=== PATIENT | male | born 1975 | race Caucasian/White ===

== ENCOUNTER 2019-01-26 21:01 | Inpatient (IN) | payer SELFPAY ==
[2019-01-26] MEDS ORDERED: Piperacillin/Tazobactam 4.5 GM VIAL ONE (21:22)
[2019-01-26 21:24] LABS: Hemoglobin 13.3 g/dL (14.0-18.0); Mean Corpuscular HGB CONC 32.9 g/dL (32.0-36.0); Mean Corpuscular Hemoglobin 28.4 pg (27.0-31.0); Mean Corpuscular Volume 86.2 fL (78.0-98.0); Platelet Count 262 thou/uL (130-400); RBC Distribution Width 12.5 % (11.5-14.5); Red Blood Cell (RBC) Count 4.67 mill/uL (4.70-6.10); White Blood Cell (WBC) Count 11.1 thou/uL (4.8-10.8)
--- NOTE | 2019-01-26 21:31 | RAD ---
AP VIEW CHEST: 01/26/2019 HISTORY: Diabetic. Complaining of septic ulcer, great toe. FINDINGS: AP view chest demonstrates cardiomegaly. Mild pulmonary vascular congestion is seen. No evidence of effusions, pneumonia, or pneumothorax is seen. IMPRESSION: Unremarkable anterior-posterior view chest. POS: [facility]
--- NOTE | 2019-01-26 21:37 | RAD ---
LEFT FOOT THREE VIEWS: HISTORY: Marked first toe swelling. TECHNIQUE: AP, lateral, and oblique views of the left foot are obtained. FINDINGS: There is marked soft tissue swelling surrounding the left great toe. There is gas seen in the soft t issues, adjacent to the interphalangeal joint. This is concerning for a gas-forming organism or an u lcer, which has extended into the joint. The rest of the left foot is unremarkable. IMPRESSION: Marked soft tissue swelling with soft tissue containing gas. This may represent a possible gas-formi ng organism within the left first toe. POS: [facility]
[2019-01-26 21:39] LABS: Band 10 % (5-11); Lymphocytes 4 % (21-51); MDiff Complete? YES; Monocytes 8 % (0-10); Neutrophil 78 % (42-75); Platelet Morphology Comment Appears Adequate; RBC Morphology Normal
[2019-01-26 21:46] LABS: ALT (SGPT) 13 U/L (8-55); AST (SGOT) 10 U/L (5-34); Albumin 3.4 g/dL (3.5-5.0); Alkaline Phosphatase 126 U/L (40-150); Anion Gap 14 mmol/L (10-20); BUN (Urea Nitrogen) 15 mg/dL (8.9-20.6); Bilirubin, Total 1.1 mg/dL (0.2-1.2); Calc. Creatinine Clearance 0 mL/min (70-130); Calcium 9.3 mg/dL (7.8-10.44); Carbon Dioxide 26 mmol/L (22-29); Chloride 90 mmol/L (98-107); Estimated GFR-MDRD 55; Globulin 4.5 g/dL (2.4-3.5); Glucose 407 mg/dL (70-105); Potassium 4.1 mmol/L (3.5-5.1); Protein, Total 7.9 g/dL (6.0-8.3); Sodium 126 mmol/L (136-145)
[2019-01-26] MEDS ORDERED: Ondansetron ODT 4 MG TAB PO PRN (22:17)
[2019-01-26] MEDS ORDERED: Ondansetron PF 4 MG/2 ML Vial IVP PRN (22:17)
[2019-01-26] MEDS ORDERED: VANCOMYCIN IVPB PRN (22:29)
[2019-01-26] MEDS ORDERED: Vancomycin HCl 1 GM in Premix Bag 1 BAG IVPB SCH (22:45)
[2019-01-27] MEDS ORDERED: Dextrose 5% in Water 1,000 ML IV PRN
[2019-01-27] MEDS ORDERED: Dextrose 50% Abboject 50 ML SYRINGE SLOW IVP PRN
--- NOTE | 2019-01-27 01:04 | HP ---
PRIMARY CARE PHYSICIAN: The patient has no PCP. He goes to [facility]. CODE STATUS: Full code. TIME OF EVALUATION: 10:50 p.m. CHIEF COMPLAINT: Diabetic nonhealing foot ulcer. HISTORY OF PRESENT ILLNESS: This is a 43-year-old male patient with past medical history of diabetes, noncompliant with medications and treatment. The patient came to the hospital after having his left great toe very swollen with redness, open nonhealing wound, diabetes ulcer, the symptoms have been present for a month, with no improvement since the patient has not been followed up with any doctor. He reported being admitted to the hospital 1 year ago for the same problem, has been getting worse gradually and today was very painful. He decided to come to the hospital. The symptoms were severe, triggered by diabetes. No alleviating factors. Symptoms are persistent. REVIEW OF SYSTEMS: CONSTITUTIONAL: No fever, chills or generalized weakness. RESPIRATORY: No cough, sputum production, or shortness of breath. CARDIOVASCULAR: No chest pain, or palpitation. GASTROINTESTINAL: No nausea, vomiting, diarrhea, or abdominal pain. ENGINEERING SPECIALIST: No dizziness, headache or feeling lightheaded. The patient has peripheral neuropathy with changes in sensation in bilateral lower extremities. GENITOURINARY: No burning on urination. EXTREMITIES: No leg swelling except for the left greater toe as described in HPI. All other systems were reviewed and negative except for the findings mentioned above. PAST MEDICAL HISTORY: Positive for diabetes, neuropathy, and obesity. PAST SURGICAL HISTORY: No surgical history. PSYCHIATRIC HISTORY: No psych history. SOCIAL HISTORY: No alcohol, no drugs. No smoking history. FAMILY HISTORY: Reviewed and noncontributory to current presentation except for mother having diabetes. KNOWN ALLERGIES: No known drug allergies. REPORTED MEDICATIONS: Metformin and gabapentin. PHYSICAL EXAMINATION: VITAL SIGNS: Blood pressure 120/72 with heart rate 119, respiratory rate was 20, temperature 100.7, pain was 10, and oxygen saturation was 100 on room air. GENERAL APPEARANCE: The patient is alert, oriented, no acute distress. HEENT: Eyes, normal conjunctiva. Moist oral mucosa. Anicteric. No JVD. RESPIRATORY: Bilateral air entry. No rales. No wheezes. Symmetric expansion. CARDIOVASCULAR: Normal rate, regular rhythm. No murmurs. No gallop. No edema. The patient has occasional tachycardic expansion on presentation. ABDOMEN: Soft. Normal bowel sounds. MUSCULOSKELETAL: Baseline range of motion and strength. No tenderness except for the left greater toe that has severe redness, tenderness, toe infection and decreased range of motion due to pain. SKIN: Warm, intact. No pallor. No rash. No redness except the findings described in musculoskeletal. Peripheral pulses are present. Capillary refill seems to be intact. NEUROLOGIC: No evidence of any new focal weakness. Baseline speech. Cranial nerves seems to be intact. The patient has decreased sensation in bilateral lower extremities. PSYCH: The patient is in good mood. No anxiety. Optimal judgment. DIAGNOSTIC DATA: EKG was reviewed. The patient has sinus tachycardia at the rate of 114, TN 162, QRS 98, incomplete RBBB. QT corrected 432. White count was 11.1, hemoglobin 13.3, MCV 86.2, platelet count 262, neutrophils 78, bands was 10, lymphocytes 4. Sedimentation rate was 100. Chemistry, sodium 126, potassium 4.1, chloride 90, carbon dioxide 26, anion gap 14, BUN 15, creatinine 1.4, GFR 55, glucose 407, lactic acid 2, calcium 9.3, total bilirubin 1.1. LFTs were negative. C-reactive protein was 20, albumin 3.4, globulin 4.5, albumin-globulin ratio 0.8. Creatinine at previous visit was 0.8. ASSESSMENT AND PLAN: The patient had been placed in the hospital with following medical problems: 1. Diabetic foot, nonhealing ulcer for a month. The patient is at risk for amputation. The patient presented now septic. We will consult Vascular Surgery, we will start him on antibiotics, wound care. 2. Sepsis. The patient is tachycardic, febrile, source is nonhealing wound. Treatment with broad-spectrum antibiotics, follow cultures. Adjust treatment as per sensitivity. 3. Acute kidney injury. The patient presented with creatinine 1.4, on previous admission was 0.8, is more than 0.3 mg/dL increase from previous values, we will hydrate, we will monitor, it could be secondary to sepsis. 4. Hyponatremia, sodium 126. This is mild, no need for any acute intervention at this point. The patient received fluids. We will monitor and treat accordingly. 5. Uncontrolled diabetes. The patient has glucose of 107. We will start the patient on sliding scale for diabetic diet, the patient will be n.p.o. for a procedure in the morning. 6. Deep venous thrombosis prophylaxis. Job ID: [id number]
[2019-01-27] MEDS: Acetaminophen 325 MG TAB PO PRN ×2 (01:52→09:57)
[2019-01-27] MEDS: HumaLOG 300 UNITS/3 ML VIAL SC PRN ×4 (03:41→20:17)
[2019-01-27] MEDS ORDERED: Piperacillin/Tazobactam 4.5 GM in Sodium Chloride 0.9% 100 ML IVPB SCH (06:59)
[2019-01-27 08:06] LABS: #Basophils 0.1 thou/uL (0.0-0.2); #Eosinphils 0.1 thou/uL (0.0-0.7); #Lymphocytes 1.6 thou/uL (1.20-3.40); #Neutrophils 6.5 thou/uL (1.40-6.50); %Basophils 0.5 % (0.0-1.0); %Eosinophils 1.3 % (0.0-10.0); %Lymphocytes 17.6 % (21.0-51.0); %Monocytes 10.4 % (0.0-10.0); %Neutrophils 70.2 % (42.0-75.0); Hemoglobin 10.4 g/dL (14.0-18.0); Mean Corpuscular HGB CONC 31.6 g/dL (32.0-36.0); Mean Corpuscular Hemoglobin 27.4 pg (27.0-31.0); Mean Corpuscular Volume 86.9 fL (78.0-98.0); Mean Platelet Volume 7.1 fL (7.4-10.4); Platelet Count 212 thou/uL (130-400); RBC Distribution Width 12.4 % (11.5-14.5); Red Blood Cell (RBC) Count 3.79 mill/uL (4.70-6.10); White Blood Cell (WBC) Count 9.3 thou/uL (4.8-10.8)
[2019-01-27 08:25] LABS: Anion Gap 10 mmol/L (10-20); BUN (Urea Nitrogen) 15 mg/dL (8.9-20.6); Calc. Creatinine Clearance 0 mL/min (70-130); Calcium 8.4 mg/dL (7.8-10.44); Carbon Dioxide 26 mmol/L (22-29); Chloride 99 mmol/L (98-107); Estimated GFR-MDRD 65; Glucose 281 mg/dL (70-105); Potassium 3.9 mmol/L (3.5-5.1); Sodium 131 mmol/L (136-145)
[2019-01-27] MEDS: Lisinopril 10 MG TAB PO SCH (09:55)
[2019-01-27] MEDS: Gabapentin 300 MG CAP PO SCH ×2 (09:55→20:13)
[2019-01-27] MEDS: Saccharomyces boulardii 250 MG CAP PO SCH (09:58)
--- NOTE | 2019-01-27 10:30 | PDOC.PN ---
- Subjective Encounter Start Date: 01/27/19 Encounter Start Time: 10:27 Subjective: pain in L foot - Objective Resuscitation Status - Order Detail: 01/26/19 22:17 Resuscitation Status Routine Resuscitation Status: FULL: Full Resuscitation MAR Reviewed: Yes Vital Signs & Weight: Vital Signs (12 hours) Temp Pulse Resp BP Pulse Ox 01/27/19 08:00 98.2 F 73 20 115/71 94 L 01/27/19 06:55 81 18 93/55 L 94 L 01/27/19 03:00 99.9 F H 01/27/19 01:30 100.7 F H 105 H 18 120/69 91 L Weight Weight 9.277 oz I&O: 01/26/19 01/27/19 01/28/19 06:59 06:59 06:59 Intake Total 500 Balance 500 Result Diagrams: 01/27/19 07:33 01/27/19 07:33 Additional Labs: Accuchecks 01/27/19 01/27/19 01/26/19 06:26 03:09 21:12 POC Glucose 276 H 451 H 411 H Phys Exam - Physical Examination Neck: no JVD Respiratory: clear to auscultation bilateral Cardiovascular: RRR, no significant murmur Gastrointestinal: soft, non-tender Musculoskeletal: no edema bandaged L distal foot, great toe about 4x normal size Dx/Plan (1) Ulcer of left foot due to type 2 diabetes mellitus Code(s): E11.621 - TYPE 2 DIABETES MELLITUS WITH FOOT ULCER; L97.529 - NON- PRESSURE CHRONIC ULCER OTH PRT LEFT FOOT W UNSP SEVERITY Status: Acute (2) Osteomyelitis of toe of left foot Code(s): M86.9 - OSTEOMYELITIS, UNSPECIFIED Status: Acute Comment: crp elevated, suspeect osteo- MRI (3) Acute kidney failure Status: Acute Qualifiers: Acute renal failure type: unspecified Qualified Code(s): N17.9 - Acute kidney failure, unspecified (4) Diabetes type 2, uncontrolled Code(s): E11.65 - TYPE 2 DIABETES MELLITUS WITH HYPERGLYCEMIA Status: Acute Qualifiers: Glycemic state: with hyperglycemia Qualified Code(s): E11.65 - Type 2 diabetes mellitus with hyperglycemia - Plan MRI of L foot -: cont antibx -: accu/ss -: hyponatremia * .
[2019-01-27] MEDS ORDERED: Gadobenate Dimeglumine 529 MG/1 ML (20ML VIAL) ONE (11:01)
[2019-01-27] MEDS: Vancomycin HCl 1.75 GM in Sodium Chloride 0.9% 500 ML IVPB SCH (12:04)
--- NOTE | 2019-01-27 13:30 | MRI ---
MRI LEFT FOREFOOT: DATE: 01/27/2019. PROVIDED CLINICAL HISTORY: Left great toe infection. FINDINGS: Comparison is made with radiographs dated 01/26/2019. Evaluation is limited by patient motion. There is conspicuous diminished signal intensity on T1 weighted images and increased signal intensity on fluid-sensitive and postcontrast sequences involving the great toe and distal phalanx. There is a circumscribed area of fluid signal intensity that apparently communicates with the great toe IP jayden nt and apparently extends to the skin surface, which may reflect a sinus tract or abscess. This navin ures about 1.3 cm. There is signal alteration on fluid-sensitive sequences to a minimal degree invol ving the great toe proximal phalanx distally without definite T1 signal alteration or contrast enhanc ement. There is extensive cutaneous thickening and signal alteration within the soft tissues surroun ding the great toe distal phalanx compatible with cellulitis. There is an additional apparent sinus tract that communicates with the plantar-medial aspect of the great toe at the level of the IP joint. Evaluation for additional soft tissue abscess is limited due to patient motion. Regional marrow signal appears otherwise unremarkable. No definite abnormal tenosynovial fluid is se en. No additional joint effusion is evident. Alignment appears anatomic Joint spaces appear preser kristin. Regional intrinsic foot musculature demonstrates diffuse increased signal intensity on fluid-se nsitive sequences, typical for diabetic patients. The dorsal extensor and plantar flexor tendons dem onstrate an intact MRI appearance. IMPRESSION: Findings compatible with osteomyelitis involving the great toe distal phalanx. Great toe interphalan geal joint effusion suggests associated septic arthritis, though there is minimal signal alteration p resent within the great toe proximal phalanx distally. Evidence for sinus tract formation as above. Abscess versus sinus tract at the dorsal aspect of the great toe interphalangeal joint. POS: [facility]
--- NOTE | 2019-01-27 13:51 | PDOC.EVN ---
Event Note - Event Note Event Note: MRI confirms osteomyelitis RL great toe- gen surgery consult
[2019-01-27] MEDS: Piperacillin/Tazobactam 4.5 GM in Sodium Chloride 0.9% 100 ML IVPB SCH ×2 (14:55→20:12)
[2019-01-28] MEDS: Vancomycin HCl 1.75 GM in Sodium Chloride 0.9% 500 ML IVPB SCH ×2 (00:11→11:34)
--- NOTE | 2019-01-28 00:42 | CON ---
DATE OF CONSULTATION: 01/27/2019 CHIEF COMPLAINT: Left great toe pain. HISTORY OF PRESENT ILLNESS: The patient is a 43-year-old diabetic who reports a wound that developed on his left great toe a few months ago because of a variety of reasons including what proved to be a terminal illness involving his mother. He kept procrastinating about seeking medical attention. He presented over the weekend with worsening pain and swelling in that toe. PAST MEDICAL HISTORY: Significant for diabetes complicated by neuropathy. MEDICATIONS: His home medications are metformin 1000 mg b.i.d. and Neurontin 300 mg b.i.d. In the hospital, his metformin has been held and he has been covered with sliding scale insulin. He has been started on Zosyn 4.5 g IV q.6 hours and vancomycin 1.75 g q.12 hours and lisinopril 10 mg a day, he has been added. ALLERGIES: HE DENIES ANY MEDICAL ALLERGIES. SOCIAL HISTORY: He does not smoke. FAMILY HISTORY: Positive for diabetes in his mother. REVIEW OF SYSTEMS: Negative for any chest pain, any shortness of breath, any eye, speech, facial, or extremity symptoms consistent with TIAs. PHYSICAL EXAMINATION: VITAL SIGNS: He is 6 feet 4 inches, weighs 263 pounds. Heart rate is 78, blood pressure is 116/70, temperature is 98.3. T-max on the robles was 100.7, which was his temperature on presentation to the emergency. Room air O2 saturations are 94%. HEENT: He has no xanthelasma. No JVD. No carotid bruits. CHEST: Clear to auscultation. HEART: He has a regular rate and rhythm. ABDOMEN: Soft, nontender. EXTREMITIES: He has bounding dorsalis pedis pulses bilaterally. He has palpable posterior tibial pulses bilaterally. He has obvious asymmetry in the size of the two legs with the left leg being edematous and the great toe massively swollen. There is some modest erythema extending to the mid forefoot. There is no purulent drainage, but there is relatively long linear ulceration on the medial aspect to the plantar aspect of the great toe. Plain films of that foot show soft tissue swelling and some air around the bone at the distal phalanx. MRI shows findings consistent with osteomyelitis of the distal phalanx and fluid in the interphalangeal joint. LABORATORY DATA: Showed white count 11.1 on presentation yesterday evening, it was 9.3 this morning. Hemoglobin this morning was 10.4, hematocrit 32.9, and platelets 212,000. Yesterday evening, his sodium was 126, this morning 131. On presentation, his glucose was 407, BUN 15, creatinine 1.40. This morning, his glucose was 281 , BUN 15, creatinine 1.20 and normal LFTs, normal calcium, protein, and albumin. His chest x-ray shows perhaps mild edema. IMPRESSION AND RECOMMENDATIONS: Osteomyelitis of the distal phalanx of the left great toe in poorly-controlled diabetic with good pedal pulses. We will plan on amputation of that toe. ADDENDUM: As I was placing orders I realized Dr. Whalen has already made arrangements to do his amputation. Job ID: [id number] [facility]
[2019-01-28] MEDS: Piperacillin/Tazobactam 4.5 GM in Sodium Chloride 0.9% 100 ML IVPB SCH ×4 (02:49→20:03)
[2019-01-28] MEDS: HumaLOG 300 UNITS/3 ML VIAL SC PRN ×2 (05:47→12:32)
[2019-01-28] MEDS: Saccharomyces boulardii 250 MG CAP PO SCH (07:56)
[2019-01-28] MEDS: Gabapentin 300 MG CAP PO SCH ×2 (07:56→20:03)
[2019-01-28] MEDS: Lisinopril 10 MG TAB PO SCH (07:56)
[2019-01-28 12:22] LABS: Vancomycin, Trough 14.7 ug/mL
[2019-01-28] MEDS ORDERED: Ondansetron PF 4 MG/2 ML Vial ONE (12:34)
[2019-01-28] MEDS ORDERED: PHENYLEPHRINE-NS 100 MCG/ML 10 ML SYRINGE ONE (12:34)
[2019-01-28] MEDS ORDERED: Lidocaine 1% PF 5 ML VIAL ONE (12:34)
[2019-01-28] MEDS ORDERED: PROPOFOL 200 MG/20 ML VIAL ONE (12:34)
[2019-01-28] MEDS ORDERED: Metoclopramide HCl 10 MG/2 ML VIAL ONE (12:34)
--- NOTE | 2019-01-28 12:41 | PDOC.PN ---
- Subjective Encounter Start Date: 01/28/19 Encounter Start Time: 12:39 Subjective: pain persists in L foot - Objective Resuscitation Status - Order Detail: 01/26/19 22:17 Resuscitation Status Routine Resuscitation Status: FULL: Full Resuscitation MAR Reviewed: Yes Vital Signs & Weight: Vital Signs (12 hours) Temp Pulse Resp BP Pulse Ox 01/28/19 11:49 97.5 F L 76 20 126/76 96 01/28/19 08:00 94 L 01/28/19 07:55 97.9 F 85 18 171/93 H 94 L 01/28/19 04:00 97.7 F 82 18 119/76 92 L Weight Admit Weight 263 lb Weight 259 lb I&O: 01/27/19 01/28/19 01/29/19 06:59 06:59 06:59 Intake Total 500 1200 Balance 500 1200 Result Diagrams: 01/27/19 07:33 01/27/19 07:33 Additional Labs: Accuchecks 01/28/19 01/28/19 01/27/19 11:54 04:51 19:30 POC Glucose 340 H 322 H 420 H 01/27/19 16:28 POC Glucose 419 H Phys Exam - Physical Examination Neck: no JVD Respiratory: clear to auscultation bilateral Cardiovascular: RRR, no significant murmur Gastrointestinal: soft, positive bowel sounds Musculoskeletal: no edema Dx/Plan (1) Ulcer of left foot due to type 2 diabetes mellitus Code(s): E11.621 - TYPE 2 DIABETES MELLITUS WITH FOOT ULCER; L97.529 - NON- PRESSURE CHRONIC ULCER OTH PRT LEFT FOOT W UNSP SEVERITY Status: Acute (2) Osteomyelitis of toe of left foot Code(s): M86.9 - OSTEOMYELITIS, UNSPECIFIED Status: Acute Comment: crp elevated, suspeect osteo- MRI (3) Acute kidney failure Status: Acute Qualifiers: Acute renal failure type: unspecified Qualified Code(s): N17.9 - Acute kidney failure, unspecified (4) Diabetes type 2, uncontrolled Code(s): E11.65 - TYPE 2 DIABETES MELLITUS WITH HYPERGLYCEMIA Status: Acute Qualifiers: Glycemic state: with hyperglycemia Qualified Code(s): E11.65 - Type 2 diabetes mellitus with hyperglycemia - Plan toe amputation today -: cont iv antibx -: cont accu/ss * .
--- NOTE | 2019-01-28 14:36 | CON ---
DATE OF CONSULTATION: REASON FOR CONSULTATION: Diabetic foot infection. HISTORY OF PRESENT ILLNESS: Mr. Patton is a 43-year-old man, who reports a left great toe wound present since around . He states that he was wearing steel-toed boots and carrying a deer feeder out in the [place] and was walking around a lot that day. On his way back home, he got dizzy and actually had to be carried for a while by his friends and that night when he took off his foot, his sock was soaked in blood and he had a sore on the medial toe. He states that he tried a doctor at home. His mother who was also diabetic was admitted to the hospital before and around the holiday and he was not really able to seek medical treatment for himself during that time. Afterwards, he continued to try to manage it on his own, but the redness and swelling and drainage got worse so he came to the hospital. He denies any fevers or chills, but the pain had gotten worse. PAST MEDICAL HISTORY: Diabetes with peripheral neuropathy. PAST SURGICAL HISTORY: None. FAMILY HISTORY: Diabetes in his mother. REVIEW OF SYSTEMS: Ten-system review of systems is negative except per HPI. ALLERGIES: THE PATIENT HAS NO KNOWN DRUG ALLERGIES. MEDICATIONS: Outpatient medications include: 1. Gabapentin. 2. Metformin. Inpatient medications include: 1. Metformin. 2. Sliding scale insulin. 3. Lisinopril. 4. Zosyn. 5. Vancomycin. 6. Florastor. 7. Multiple p.r.n.'s. PHYSICAL EXAMINATION: VITAL SIGNS: The patient had a low-grade fever on admission of 100.7, has been afebrile since then. Heart rate 76, respirations 20, 96% saturated on room air, and blood pressure 126/76. GENERAL: Reveals a healthy-appearing man, in no acute distress. He is not flushed or toxic in appearance. He is not jaundiced or icteric. HEENT: Unremarkable. NECK: Supple without lymphadenopathy or thyroid nodules. HEART: Regular in its rate and rhythm without murmurs, rubs, or gallops. LUNGS: Clear to auscultation bilaterally. ABDOMEN: Soft and nontender to palpation. EXTREMITIES: Warm and well perfused. He has normal dorsalis pedis pulses bilaterally. His left foot is swollen to the level of the ankle and his left great toe is massively swollen. He has a full-thickness ulceration over the medial great toe and I can palpate the joint in the base of the wound. There is pus expressible from this wound and erythema extending up onto the forefoot. The other toes are swollen, but do not have any fluctuance or crepitance. NEUROLOGIC: Peripheral neuropathy. Otherwise, no focal findings. PSYCHIATRIC: Alert, oriented, and appropriate. IMAGING STUDIES: Lower extremity MRI showed osteomyelitis of the great toe distal phalanx and septic arthritis of the interphalangeal joint with sinus tract formation and abscess associated. ASSESSMENT: Osteomyelitis and septic joint confirmed by MRI and bedside exam. I recommended toe amputation and the patient is amenable to this. He understands that the wound will need to be left open to heal by secondary intent due to the active infection. He understands that amputation of other toes may be necessary if the infectious process extends farther than is suspected on MRI and physical examination. Inherent risks of the surgery include, but are not limited to, bleeding, infection, risks of anesthesia, need for other procedures, and failure to heal. He understands and accepts these risks and wishes to proceed. We discussed in detail the expected postoperative course including the need for establishing care with a economic history teacher and getting appropriate footwear for his post amputation state. He understands that due to loss of his great toe, his balance and ambulation will be affected and he will be at high risk for other neurotrophic injuries and that he will need to exercise great caution with regard to his feet in the future and seek immediate attention if he develops any open wounds. He is posted for the OR later today. Job ID: [id number]
[2019-01-28] MEDS ORDERED: Bupivacaine/Epinephrine 0.25% 30 ML VIAL ONE (17:09)
[2019-01-28] MEDS ORDERED: Neomycin-Polymyxin 1 ML AMP ONE ×2 (17:09→17:11)
[2019-01-28] MEDS ORDERED: Fentanyl 100 MCG/2 ML VIAL ONE (17:35)
[2019-01-28] MEDS ORDERED: Piperacillin/Tazobactam 3.375 GM VIAL ONE (18:17)
[2019-01-28] MEDS ORDERED: Meperidine HCl/PF 25 MG/ML VIAL SLOW IVP PRN (18:43)
[2019-01-28] MEDS ORDERED: Promethazine HCl 25 MG/ML VIAL IM PRN (18:43)
[2019-01-28] MEDS ORDERED: Promethazine HCl 25 MG/ML VIAL SLOW IVP PRN (18:43)
[2019-01-28] MEDS ORDERED: PACU-Morphine 4MG/ML VIAL SLOW IVP PRN (18:43)
[2019-01-28] MEDS ORDERED: Sodium Chloride 0.9% 0 ML ONE (19:36)
--- NOTE | 2019-01-28 19:51 | PDOC.OP ---
Operative Note - Operative Note Operative Note: PROCEDURE: Left great toe ray amputation DATE OF PROCEDURE: 01/28/2019 SURGEON: Kaitlin Whalen M.D. PREOPERATIVE DIAGNOSES: Osteomyelitis and septic joint of the left great toe POSTOPERATIVE DIAGNOSIS: Osteomyelitis and septic joint of the left great toe HISTORY: Patient with a several month history of ulceration and drainage and worsening swelling and pain of the left great toe. MRI was positive for septic joint osteomyelitis of the distal phalanx and associated abscess. Recommendation was made to proceed with amputation. PROCEDURE IN DETAIL: After informed consent was obtained and appropriate preoperative and about his continued patient was taken to the operating room where he was placed in the supine position and general anesthesia was administered. He was prepped and draped in standard sterile fashion and a toe block performed. A paddle shape incision was made at the base of the left great toe and dissection carried down to the proximal phalanx which was divided using the rib tami. Dissection was then carried down to the joint and the proximal part of the proximal phalanx resected. The metatarsal head was then divided with rib tami and sent for bone culture. The bone at this level appeared normal. The surrounding tissues appeared healthy and well-perfused although edematous and there is no evidence of purulence or ascending infection. The wound was debrided and all sharp edges removed using the rongeur. The flexor and extensor tendons were pulled up into the wound cut and allowed to retract into the soft tissue. The wound was copiously irrigated and hemostasis was verified. The proximal portion of the skin incision was reapproximated with 3-0 nylon sutures to reduce the size of the wound and the wound was packed with iodoform gauze and the foot wrapped with gauze and an Dat wrap. The patient was extubated and taken to recovery in good condition. Estimated blood loss was minimal. There were no complications. Specimen is left great toe with metatarsal head sent for bone cultures. Swab of the left great toe abscess was also sent for Gram stain and culture.
[2019-01-28] MEDS ORDERED: Morphine 4 MG/ML VIAL SLOW IVP PRN (20:05)
[2019-01-29] MEDS: Piperacillin/Tazobactam 4.5 GM in Sodium Chloride 0.9% 100 ML IVPB SCH ×4 (01:12→20:55)
[2019-01-29] MEDS: Vancomycin HCl 1.75 GM in Sodium Chloride 0.9% 500 ML IVPB SCH ×2 (01:12→12:29)
[2019-01-29] MEDS: HYDROcodone/Acetaminophen 5/325 mg Tablet PO PRN ×4 (02:07→20:54)
[2019-01-29] MEDS: HumaLOG 300 UNITS/3 ML VIAL SC PRN ×3 (04:58→16:47)
[2019-01-29] MEDS: Saccharomyces boulardii 250 MG CAP PO SCH (08:49)
[2019-01-29] MEDS: Gabapentin 300 MG CAP PO SCH ×2 (08:49→20:55)
[2019-01-29] MEDS: Lisinopril 10 MG TAB PO SCH (08:49)
--- NOTE | 2019-01-29 11:51 | PDOC.GSPN ---
Surgery Progress Note: Subj - Subjective Narrative: Wound was clean but there was oozing from near the digital artery and along the lateral edge of the wound, and according to the wound care team the dressing saturated overnight. The nurses report that he was told not to walk on his fresh wound that he was noncompliant with this obstruction. The wound care team tried to control this with direct pressure and Surgicel but he continued to ooze so I inserted a couple [id number] Vicryl sutures to achieve hemostasis. A VAC dressing was then placed. Continue with the VAC and antibiotics. I will ask physical therapy to see him. Elder ideally he would be nonweightbearing on his foot that he needs to heel touch for safety that is acceptable. Surgery Progress Note: Obj - Vital signs Vital signs: Vital Signs - Most Recent Temp Pulse Resp BP Pulse Ox 98.1 F 73 18 149/86 H 93 L 01/29/19 11:15 01/29/19 11:15 01/29/19 11:15 01/29/19 11:15 01/29/19 11:15 Surgery Progress Note: Results - Labs Result Diagrams: 01/27/19 07:33 01/27/19 07:33 Lab results: Laboratory Results - last 24 hr 01/28/19 01/29/19 15:24 04:40 POC Glucose 194 H 393 H
--- NOTE | 2019-01-29 12:18 | PDOC.PN ---
- Subjective Encounter Start Date: 01/29/19 Encounter Start Time: 12:17 Subjective: min pain in foot - Objective Resuscitation Status - Order Detail: 01/26/19 22:17 Resuscitation Status Routine Resuscitation Status: FULL: Full Resuscitation MAR Reviewed: Yes Vital Signs & Weight: Vital Signs (12 hours) Temp Pulse Resp BP BP BP Pulse Ox 01/29/19 11:15 98.1 F 73 18 149/86 H 93 L 01/29/19 08:50 96 01/29/19 08:49 157/91 H 01/29/19 07:04 98 F 75 19 157/91 H 96 01/29/19 04:00 97.7 F 67 18 152/94 H 94 L Weight Admit Weight 263 lb Weight 259 lb 12.8 oz I&O: 01/28/19 01/29/19 01/30/19 06:59 06:59 06:59 Intake Total 1200 Output Total 450 Balance 1200 -450 Result Diagrams: 01/27/19 07:33 01/27/19 07:33 Additional Labs: Accuchecks 01/29/19 01/29/19 01/28/19 11:13 04:40 20:27 POC Glucose 422 H 393 H 174 H 01/28/19 01/28/19 01/28/19 19:11 15:24 11:54 POC Glucose 272 H 194 H 340 H Phys Exam - Physical Examination Neck: no JVD Respiratory: clear to auscultation bilateral Cardiovascular: RRR, no significant murmur Gastrointestinal: soft, positive bowel sounds Musculoskeletal: no edema L foot bandaged Dx/Plan (1) Ulcer of left foot due to type 2 diabetes mellitus Code(s): E11.621 - TYPE 2 DIABETES MELLITUS WITH FOOT ULCER; L97.529 - NON- PRESSURE CHRONIC ULCER OTH PRT LEFT FOOT W UNSP SEVERITY Status: Acute (2) Osteomyelitis of toe of left foot Code(s): M86.9 - OSTEOMYELITIS, UNSPECIFIED Status: Acute Comment: crp elevated, suspeect osteo- MRI (3) Acute kidney failure Status: Acute Qualifiers: Acute renal failure type: unspecified Qualified Code(s): N17.9 - Acute kidney failure, unspecified (4) Diabetes type 2, uncontrolled Code(s): E11.65 - TYPE 2 DIABETES MELLITUS WITH HYPERGLYCEMIA Status: Acute Qualifiers: Glycemic state: with hyperglycemia Qualified Code(s): E11.65 - Type 2 diabetes mellitus with hyperglycemia - Plan post amputation, C&S wound pending, cont current antibx -: cont accu/ss- start metformin -: wound vac * .
[2019-01-29] MEDS: metFORMIN 500 MG TAB PO SCH (16:46)
[2019-01-30] MEDS: Piperacillin/Tazobactam 4.5 GM in Sodium Chloride 0.9% 100 ML IVPB SCH ×2 (01:25→08:43)
[2019-01-30] MEDS: Vancomycin HCl 1.75 GM in Sodium Chloride 0.9% 500 ML IVPB SCH (01:25)
[2019-01-30] MEDS: HYDROcodone/Acetaminophen 5/325 mg Tablet PO PRN ×3 (03:22→18:07)
[2019-01-30] MEDS: HumaLOG 300 UNITS/3 ML VIAL SC PRN ×4 (05:41→19:52)
--- NOTE | 2019-01-30 08:36 | PDOC.PN ---
- Subjective Encounter Start Date: 01/30/19 Encounter Start Time: 08:31 Subjective: no fever, etc - Objective Resuscitation Status - Order Detail: 01/26/19 22:17 Resuscitation Status Routine Resuscitation Status: FULL: Full Resuscitation MAR Reviewed: Yes Vital Signs & Weight: Vital Signs (12 hours) Temp Pulse Resp BP Pulse Ox 01/30/19 07:02 97.8 F 78 17 162/82 H 91 L Weight Admit Weight 263 lb Weight 256 lb I&O: 01/29/19 01/30/19 01/31/19 06:59 06:59 06:59 Intake Total 1260 Output Total 1850 Balance -590 Result Diagrams: 01/27/19 07:33 01/27/19 07:33 Additional Labs: Accuchecks 01/30/19 01/29/19 01/29/19 05:11 19:52 15:59 POC Glucose 268 H 173 H 336 H 01/29/19 11:13 POC Glucose 422 H Phys Exam - Physical Examination Neck: no JVD Respiratory: clear to auscultation bilateral Cardiovascular: RRR, no significant murmur Gastrointestinal: soft, positive bowel sounds Musculoskeletal: no edema left foot- wound vac Dx/Plan (1) Ulcer of left foot due to type 2 diabetes mellitus Code(s): E11.621 - TYPE 2 DIABETES MELLITUS WITH FOOT ULCER; L97.529 - NON- PRESSURE CHRONIC ULCER OTH PRT LEFT FOOT W UNSP SEVERITY Status: Acute (2) Osteomyelitis of toe of left foot Code(s): M86.9 - OSTEOMYELITIS, UNSPECIFIED Status: Acute Comment: crp elevated, suspeect osteo- MRI (3) Acute kidney failure Status: Resolved Qualifiers: Acute renal failure type: unspecified Qualified Code(s): N17.9 - Acute kidney failure, unspecified (4) Diabetes type 2, uncontrolled Code(s): E11.65 - TYPE 2 DIABETES MELLITUS WITH HYPERGLYCEMIA Status: Acute Qualifiers: Glycemic state: with hyperglycemia Qualified Code(s): E11.65 - Type 2 diabetes mellitus with hyperglycemia (5) Hypertension Code(s): I10 - ESSENTIAL (PRIMARY) HYPERTENSION Status: Acute - Plan add amlodipine for HTN -: ADD glipizide for hyperglycemia -: deescalate antibx to rocephin -: wound care per gen surg * .
[2019-01-30] MEDS: Lisinopril 10 MG TAB PO SCH (08:40)
[2019-01-30] MEDS: metFORMIN 500 MG TAB PO SCH ×2 (08:40→16:54)
[2019-01-30] MEDS: Gabapentin 300 MG CAP PO SCH ×2 (08:41→19:52)
[2019-01-30] MEDS: Saccharomyces boulardii 250 MG CAP PO SCH (08:41)
[2019-01-30] MEDS ORDERED: Amlodipine 5 MG TAB PO SCH ×2 (09:00→10:00)
[2019-01-30] MEDS: cefTRIAXone\\ROCEPHIN 2 GM in Sodium Chloride 0.9% 100 ML IVPB SCH (10:50)
[2019-01-30 11:41] LABS: Vancomycin, Trough 20.8 ug/mL
[2019-01-30 15:03] VITALS: BMI 31.1
[2019-01-31] MEDS: Saccharomyces boulardii 250 MG CAP PO SCH (08:40)
[2019-01-31] MEDS: HYDROcodone/Acetaminophen 5/325 mg Tablet PO PRN ×2 (08:40→15:56)
[2019-01-31] MEDS: Amlodipine 5 MG TAB PO SCH (08:40)
[2019-01-31] MEDS: metFORMIN 500 MG TAB PO SCH ×2 (08:41→15:56)
[2019-01-31] MEDS: Gabapentin 300 MG CAP PO SCH ×2 (08:41→20:26)
[2019-01-31] MEDS: Lisinopril 10 MG TAB PO SCH (08:42)
[2019-01-31] MEDS: cefTRIAXone\\ROCEPHIN 2 GM in Sodium Chloride 0.9% 100 ML IVPB SCH (08:42)
[2019-01-31] MEDS: HumaLOG 300 UNITS/3 ML VIAL SC PRN ×2 (11:52→20:26)
--- NOTE | 2019-01-31 13:48 | CON ---
DATE OF CONSULTATION: 01/31/2019 REASON FOR CONSULTATION: Foot osteomyelitis with amputation of the first toe. HISTORY OF PRESENT ILLNESS: A 43-year-old patient admitted a few days ago with inflammatory process of the left first toe. The patient had noticed an ulcer a few months ago, but was not able to have it looked at and eventually he had to come to the hospital, when Dr. Whalen performed amputation of the first ray. It seems like the margin of amputations cleared. Pathology is pending at this time. Denies headaches. No visual symptoms, sore throat, odynophagia, or dysphagia. No cough or sputum production. No chest pain. No back pain. No abdominal pain or diarrhea. No genitourinary symptoms. No other joint symptoms. PAST MEDICAL HISTORY: 1. Type 2 diabetes. 2. Neuropathy. 3. Obesity. PAST SURGICAL HISTORY: Negative other than until this current one. SOCIAL HISTORY: Never smoker. No alcoholic beverage use. FAMILY HISTORY: Noncontributory. ALLERGIES: NONE. CURRENT MEDICATIONS: 1. Tylenol. 2. [place]. 3. Norvasc. 4. Ceftriaxone. 5. Dextrose. 6. Gabapentin. 7. Insulin. 8. Morphine. PHYSICAL EXAMINATION: VITAL SIGNS: Temperature is normal, BP 170/90, pulse 76, respirations 18, and O2 saturation 91% to 92%. SKIN: Shows the previously noted 1st toe inflammatory changes with marked swelling and then the subsequent findings after the amputation at the MPJ level 1st ray, the patient has a peripheral IV access and is urinating in the toilet. LYMPH NODES: No lymphadenopathy. HEENT: Ocular movements conjugate. Nasal passages patent. Oral cavity normal. NECK: Supple. No jugular vein distention. LUNGS: Symmetric with clear breath sounds. HEART: S1 and S2. Regular rate. No S3 or S4. ABDOMEN: Soft, not distended or tender. No ascites. No bladder distention. EXTREMITIES: No other joint inflammatory process. Pulses are 2+ in popliteal and dorsalis pedis. Cap refill is normal. NEUROLOGIC: Cognitive function appears to be normal. LABORATORY DATA: White cell count is 11 down to 9.3, hemoglobin down to 10.4, platelets stable at 212, and 78% neutrophils. Chemistry with a creatinine of 1.2, GFR 65, and sodium 131. Bilirubin 1.1, AST 10, and ALT 13. CRP 20.14. Albumin 3.4 and globulin 4.5. Vancomycin trough 20. Microbiology with Staph aureus, pending susceptibilities. Anaerobic cultures are still preliminary. The Gram-stain shows a mixed ren. The patient had an MRI done on admission, which demonstrates osteomyelitis of great toe distal phalanx with interphalangeal joint effusion. ASSESSMENT: 1. Type 2 diabetes. 2. Neuropathy with chronic inflammatory process, left first toe, which resulted in first ray amputation. PLAN: We will wait for the pathology report, assuming good margin, and then will hopefully transition to oral antimicrobial therapy. We will need anaerobic coverage as well. If those lesions typically are polymicrobial, then we will see what the combination will be with Flagyl or some other type of anaerobic coverage. Duration of therapy will probably be anywhere from 3 to 4 weeks. He is at risk for recrudescence of the process and further amputation depending on his ability of care for self. He does have good vascular supply, though which is a good prognostic indicator for healing. Job ID: [id number]
--- NOTE | 2019-01-31 14:20 | PDOC.GSPN ---
Surgery Progress Note: Subj - Subjective Narrative: Wound examined today with wound care team. It is clean and granulating. Continue VAC and antibiotics. Cultures show staph but final sensitivities pending. I can see him either in the wound care clinic or in my clinic after his discharge. Please contact the surgeon corporate communications manager if any issues arise. I will be gone next week. Surgery Progress Note: Obj - Vital signs Vital signs: Vital Signs - Most Recent Temp Pulse Resp BP Pulse Ox 97.9 F 76 18 171/90 H 91 L 01/31/19 11:05 01/31/19 11:05 01/31/19 11:05 01/31/19 11:05 01/31/19 11:05 Surgery Progress Note: Results - Labs Result Diagrams: 01/27/19 07:33 01/27/19 07:33 Lab results: Laboratory Results - last 24 hr 01/31/19 01/31/19 05:02 11:08 POC Glucose 202 H 274 H
--- NOTE | 2019-01-31 19:16 | PDOC.PN ---
- Subjective Encounter Start Date: 01/31/19 Encounter Start Time: 19:14 Subjective: feels well. no new complaints.no ON events - Objective Resuscitation Status - Order Detail: 01/26/19 22:17 Resuscitation Status Routine Resuscitation Status: FULL: Full Resuscitation MAR Reviewed: Yes Vital Signs & Weight: Vital Signs (12 hours) Temp Pulse Pulse Resp BP BP BP 01/31/19 16:12 97.7 F 75 18 171/80 H 01/31/19 15:51 76 170/89 H 01/31/19 11:05 97.9 F 76 18 171/90 H 01/31/19 08:42 178/94 H 01/31/19 08:40 84 01/31/19 08:00 01/31/19 07:38 97.8 F 81 16 178/94 H Pulse Ox 01/31/19 16:12 94 L 01/31/19 15:51 01/31/19 11:05 91 L 01/31/19 08:42 01/31/19 08:40 01/31/19 08:00 93 L 01/31/19 07:38 91 L Weight Admit Weight 263 lb Weight 256 lb I&O: 01/30/19 01/31/19 02/01/19 06:59 06:59 06:59 Intake Total 1260 2020 1000 Output Total 1850 825 Balance -590 1195 1000 Result Diagrams: 01/27/19 07:33 01/27/19 07:33 Additional Labs: Accuchecks 01/31/19 01/31/19 01/31/19 16:15 11:08 05:02 POC Glucose 196 H 274 H 202 H 01/30/19 19:37 POC Glucose 295 H Microbiology 01/28/19 18:57 Toe - Abscess Bacterial Culture - Preliminary Staphylococcus aureus 01/28/19 18:32 Bone Bacterial Culture - Preliminary 01/28/19 18:32 Bone Anaerobic Culture - Preliminary 01/26/19 21:15 Venous blood - Right Arm Blood Culture - Preliminary NO GROWTH AT 48 HOURS 01/26/19 21:14 Venous blood - Left Arm Blood Culture - Preliminary NO GROWTH AT 48 HOURS Phys Exam - Physical Examination Constitutional: NAD HEENT: PERRLA, moist MMs, sclera anicteric, oral pharynx no lesions, 2+ tonsils Neck: no nodes, no JVD, supple, full ROM Respiratory: no wheezing, no rales, no rhonchi, clear to auscultation bilateral Cardiovascular: RRR, no significant murmur, no rub Gastrointestinal: soft, non-tender, no distention, positive bowel sounds Musculoskeletal: no edema, pulses present wound vac in place Neurological: non-focal, normal sensation, moves all 4 limbs Psychiatric: normal affect, A&O x 3 Skin: no rash, normal turgor, cap refill <2 seconds Dx/Plan (1) Osteomyelitis of toe of left foot Code(s): M86.9 - OSTEOMYELITIS, UNSPECIFIED Status: Acute Comment: crp elevated, suspeect osteo- MRI.s/p Amputation and Wound vac (2) Ulcer of left foot due to type 2 diabetes mellitus Code(s): E11.621 - TYPE 2 DIABETES MELLITUS WITH FOOT ULCER; L97.529 - NON- PRESSURE CHRONIC ULCER OTH PRT LEFT FOOT W UNSP SEVERITY Status: Acute (3) Hypertension Code(s): I10 - ESSENTIAL (PRIMARY) HYPERTENSION Status: Acute (4) Diabetes type 2, uncontrolled Code(s): E11.65 - TYPE 2 DIABETES MELLITUS WITH HYPERGLYCEMIA Status: Acute Qualifiers: Glycemic state: with hyperglycemia Qualified Code(s): E11.65 - Type 2 diabetes mellitus with hyperglycemia (5) Obesity (BMI 30.0-34.9) Code(s): E66.9 - OBESITY, UNSPECIFIED Status: Chronic - Plan DVT proph w/SCDs consult ID for DC ABx -: path pending -: HD stable.meds as below -: wound care * . Review of Systems - Review of Systems Constitutional: negative: fever, chills, sweats, weakness, malaise, other ENT: negative: Ear Pain, Ear Discharge, Nose Pain, Nose Discharge, Nose Congestion, Mouth Pain, Mouth Swelling, Throat Pain, Throat Swelling, Other Respiratory: negative: Cough, Dry, Shortness of Breath, Hemoptysis, SOB with Excertion, Pleuritic Pain, Sputum, Wheezing Cardiovascular: negative: chest pain, palpitations, orthopnea, paroxysmal nocturnal dyspnea, edema, light headedness, other Gastrointestinal: negative: Nausea, Vomiting, Abdominal Pain, Diarrhea, Constipation, Melena, Hematochezia, Other Genitourinary: negative: Dysuria, Frequency, Incontinence, Hematuria, Retention , Other Musculoskeletal: negative: Neck Pain, Shoulder Pain, Arm Pain, Back Pain, Hand Pain, Leg Pain, Foot Pain, Other Skin: negative: Rash, Lesions, Thom, Bruising, Other Neurological: negative: Weakness, Numbness, Incoordination, Change in Speech, Confusion, Seizures, Other - Medications/Allergies Allergies/Adverse Reactions: Allergies Allergy/AdvReac Type Severity Reaction Status Date / Time No Known Drug Allergies Allergy Verified 07/16/17 03:25 Medications: Current Medications Acetaminophen (Tylenol) 650 mg PO Q4H PRN PRN Reason: Headache/Fever/Mild Pain (1-3) Last Admin: 01/27/19 09:57 Dose: 650 mg Hydrocodone Bitart/Acetaminophen ([place] 5/325) 1 tab PO Q4H PRN PRN Reason: Pain 4-6 Last Admin: 01/31/19 15:56 Dose: 1 tab Amlodipine Besylate (Norvasc) 5 mg PO DAILY COUNTS INCLUDE 234 BEDS AT THE [facility] Last Admin: 01/31/19 08:40 Dose: 5 mg Dextrose/Water (Dextrose 50%) 25 gm SLOW IVP PRN PRN PRN Reason: Hypoglycemia Gabapentin (Neurontin) 300 mg PO BID COUNTS INCLUDE 234 BEDS AT THE [facility] Last Admin: 01/31/19 08:41 Dose: 300 mg Glipizide (Glucotrol Xl) 5 mg PO QAM-[facility] Last Admin: 01/31/19 08:42 Dose: 5 mg Glucagon (Glucagon) 1 mg IM PRN PRN PRN Reason: Hypoglycemia Dextrose/Water (D5w) 1,000 mls @ 0 mls/hr IV .Q0M PRN PRN Reason: Hypoglycemia Ceftriaxone Sodium 2 gm/ (Sodium Chloride) 100 mls @ 200 mls/hr IVPB 1000 COUNTS INCLUDE 234 BEDS AT THE [facility] Last Admin: 01/31/19 08:42 Dose: 100 mls Insulin Human Lispro (Humalog) 0 units SC .AGGRESSIVE SLIDING PRN; Protocol PRN Reason: AGGRESSIVE SLIDING SCALE Last Admin: 01/31/19 11:52 Dose: 9 unit Lisinopril (Zestril) 10 mg PO DAILY COUNTS INCLUDE 234 BEDS AT THE [facility] Last Admin: 01/31/19 08:42 Dose: 10 mg Metformin HCl (Glucophage) 1,000 mg PO BID-[facility] Last Admin: 01/31/19 15:56 Dose: 1,000 mg Morphine Sulfate (Morphine) 2 mg SLOW IVP Q2H PRN PRN Reason: PAIN IF UNABLE TO TAKE PO Ondansetron HCl (Zofran Odt) 4 mg PO Q6H PRN PRN Reason: Nausea/Vomiting Ondansetron HCl (Zofran) 4 mg IVP Q6H PRN PRN Reason: Nausea/Vomiting Saccharomyces Annai (Florastor) 250 mg PO DAILY COUNTS INCLUDE 234 BEDS AT THE [facility] Last Admin: 01/31/19 08:40 Dose: 250 mg
[2019-02-01] MEDS: HumaLOG 300 UNITS/3 ML VIAL SC PRN ×3 (05:43→20:08)
[2019-02-01] MEDS: cefTRIAXone\\ROCEPHIN 2 GM in Sodium Chloride 0.9% 100 ML IVPB SCH (09:14)
[2019-02-01] MEDS: metFORMIN 500 MG TAB PO SCH ×2 (09:15→17:49)
[2019-02-01] MEDS: Amlodipine 5 MG TAB PO SCH (09:15)
[2019-02-01] MEDS: Gabapentin 300 MG CAP PO SCH ×2 (09:15→20:08)
[2019-02-01] MEDS: Saccharomyces boulardii 250 MG CAP PO SCH (09:15)
[2019-02-01] MEDS: Lisinopril 10 MG TAB PO SCH (09:16)
[2019-02-01] MEDS: HYDROcodone/Acetaminophen 5/325 mg Tablet PO PRN ×2 (11:25→20:11)
--- NOTE | 2019-02-01 15:58 | PDOC.PN ---
- Subjective Encounter Start Date: 02/01/19 Encounter Start Time: 15:56 Subjective: Seen and examined feeling better - Objective Resuscitation Status - Order Detail: 01/26/19 22:17 Resuscitation Status Routine Resuscitation Status: FULL: Full Resuscitation Vital Signs & Weight: Vital Signs (12 hours) Temp Pulse Resp BP BP Pulse Ox 02/01/19 12:00 97.6 F 78 18 172/91 H 96 02/01/19 09:16 178/94 H 02/01/19 09:15 75 02/01/19 08:00 98.1 F 75 18 189/83 H 94 L Weight Admit Weight 263 lb Weight 256 lb I&O: 01/31/19 02/01/19 02/02/19 06:59 06:59 07:59 Intake Total 2020 1000 Output Total 825 Balance 1195 1000 Result Diagrams: 01/27/19 07:33 01/27/19 07:33 Additional Labs: Accuchecks 02/01/19 02/01/19 01/31/19 11:46 04:39 19:28 POC Glucose 163 H 346 H 182 H 01/31/19 16:15 POC Glucose 196 H Phys Exam - Physical Examination Constitutional: NAD HEENT: PERRLA, moist MMs, sclera anicteric, TM's clear Neck: no nodes, no JVD, supple, full ROM Respiratory: no wheezing, no rales, no rhonchi, clear to auscultation bilateral Cardiovascular: RRR, no significant murmur, no rub Gastrointestinal: soft, non-tender, no distention, positive bowel sounds Dx/Plan (1) Hypertension Code(s): I10 - ESSENTIAL (PRIMARY) HYPERTENSION Status: Acute (2) Osteomyelitis of toe of left foot Code(s): M86.9 - OSTEOMYELITIS, UNSPECIFIED Status: Acute Comment: crp elevated, suspeect osteo- MRI.s/p Amputation and Wound vac (3) Ulcer of left foot due to type 2 diabetes mellitus Code(s): E11.621 - TYPE 2 DIABETES MELLITUS WITH FOOT ULCER; L97.529 - NON- PRESSURE CHRONIC ULCER OTH PRT LEFT FOOT W UNSP SEVERITY Status: Acute (4) Abdominal wall cellulitis Code(s): L03.311 - CELLULITIS OF ABDOMINAL WALL Status: Acute (5) Diabetes type 2, uncontrolled Code(s): E11.65 - TYPE 2 DIABETES MELLITUS WITH HYPERGLYCEMIA Status: Acute Qualifiers: Glycemic state: with hyperglycemia Qualified Code(s): E11.65 - Type 2 diabetes mellitus with hyperglycemia (6) Diabetic foot infection Code(s): E11.69 - TYPE 2 DIABETES MELLITUS WITH OTHER SPECIFIED COMPLICATION; L08.9 - LOCAL INFECTION OF THE SKIN AND SUBCUTANEOUS TISSUE, UNSP Status: Acute (7) Hyponatremia Code(s): E87.1 - HYPO-OSMOLALITY AND HYPONATREMIA Status: Acute (8) Obesity (BMI 30.0-34.9) Code(s): E66.9 - OBESITY, UNSPECIFIED Status: Chronic - Plan continue antibiotics, PT/OT, social welfare clerk Based on senstivity will reccommend clindamycin/flagyl if ok with iD -: will D/c ceftriaxone -: D/c when ok with ID with final plan for outpatient antibiotics regimen * .
[2019-02-01] MEDS: Rifampin 300 MG CAP PO SCH (20:08)
[2019-02-01] MEDS: Sulfameth/Trimethoprim DS 800-160mg TAB PO SCH (20:08)
[2019-02-01] MEDS ORDERED: Clindamycin 150 MG CAP PO SCH (21:00)
[2019-02-01] MEDS ORDERED: metroNIDAZOLE 500 MG TAB PO SCH (21:00)
[2019-02-02] MEDS: HYDROcodone/Acetaminophen 5/325 mg Tablet PO PRN ×3 (05:31→19:21)
[2019-02-02] MEDS: Gabapentin 300 MG CAP PO SCH ×2 (09:30→19:21)
[2019-02-02] MEDS: Sulfameth/Trimethoprim DS 800-160mg TAB PO SCH ×2 (09:30→19:20)
[2019-02-02] MEDS: Lisinopril 10 MG TAB PO SCH (09:30)
[2019-02-02] MEDS: Rifampin 300 MG CAP PO SCH ×2 (09:30→19:21)
[2019-02-02] MEDS: Saccharomyces boulardii 250 MG CAP PO SCH (09:30)
[2019-02-02] MEDS: metFORMIN 500 MG TAB PO SCH ×2 (09:31→17:13)
[2019-02-02] MEDS: Amlodipine 5 MG TAB PO SCH (09:31)
--- NOTE | 2019-02-02 14:53 | PDOC.PN ---
- Subjective Encounter Start Date: 02/02/19 Encounter Start Time: 14:51 Patient seen and examined. No new complaints. No overnight events. feeling better. - Objective Resuscitation Status - Order Detail: 01/26/19 22:17 Resuscitation Status Routine Resuscitation Status: FULL: Full Resuscitation MAR Reviewed: Yes Vital Signs & Weight: Vital Signs (12 hours) Temp Pulse Resp BP BP Pulse Ox 02/02/19 11:00 98.1 F 81 18 176/93 H 94 L 02/02/19 09:31 86 02/02/19 09:30 178/94 H 02/02/19 08:00 97.9 F 86 20 162/81 H 95 Weight Admit Weight 263 lb Weight 256 lb I&O: 02/01/19 02/02/19 02/03/19 05:59 06:59 06:59 Intake Total Balance Result Diagrams: 01/27/19 07:33 01/27/19 07:33 Additional Labs: Accuchecks 02/02/19 02/02/19 02/01/19 11:36 04:40 19:13 POC Glucose 190 H 199 H 379 H 02/01/19 16:54 POC Glucose 249 H Phys Exam - Physical Examination Constitutional: NAD HEENT: sclera anicteric Neck: supple Respiratory: no wheezing, no rales Gastrointestinal: soft Musculoskeletal: no edema Neurological: moves all 4 limbs Psychiatric: normal affect, A&O x 3 Skin: no rash Dx/Plan (1) Osteomyelitis of toe of left foot Code(s): M86.9 - OSTEOMYELITIS, UNSPECIFIED Status: Acute Comment: crp elevated, suspeect osteo- MRI.s/p Amputation and Wound vac (2) Ulcer of left foot due to type 2 diabetes mellitus Code(s): E11.621 - TYPE 2 DIABETES MELLITUS WITH FOOT ULCER; L97.529 - NON- PRESSURE CHRONIC ULCER OTH PRT LEFT FOOT W UNSP SEVERITY Status: Acute (3) Diabetes type 2, uncontrolled Code(s): E11.65 - TYPE 2 DIABETES MELLITUS WITH HYPERGLYCEMIA Status: Acute Qualifiers: Glycemic state: with hyperglycemia Qualified Code(s): E11.65 - Type 2 diabetes mellitus with hyperglycemia (4) Obesity (BMI 30.0-34.9) Code(s): E66.9 - OBESITY, UNSPECIFIED Status: Chronic - Plan cont current plan of care, continue antibiotics * . f/u with ID for recs. AM labs.
[2019-02-03] MEDS: Gabapentin 300 MG CAP PO SCH ×2 (09:04→19:52)
[2019-02-03] MEDS: Lisinopril 10 MG TAB PO SCH (09:04)
[2019-02-03] MEDS: Saccharomyces boulardii 250 MG CAP PO SCH (09:04)
[2019-02-03] MEDS: Sulfameth/Trimethoprim DS 800-160mg TAB PO SCH ×2 (09:04→19:52)
[2019-02-03] MEDS: metFORMIN 500 MG TAB PO SCH ×2 (09:04→16:34)
[2019-02-03] MEDS: Amlodipine 5 MG TAB PO SCH (09:04)
[2019-02-03] MEDS: Rifampin 300 MG CAP PO SCH ×2 (09:05→19:52)
[2019-02-03 09:08] LABS: #Eosinphils 0.3 thou/uL (0.0-0.7); #Lymphocytes 1.6 thou/uL (1.20-3.40); #Monocytes 0.5 thou/uL (0.11-0.59); #Neutrophils 6.8 thou/uL (1.40-6.50); %Basophils 0.5 % (0.0-1.0); %Eosinophils 3.5 % (0.0-10.0); %Lymphocytes 17.4 % (21.0-51.0); %Monocytes 5.3 % (0.0-10.0); %Neutrophils 73.3 % (42.0-75.0); Hemoglobin 12.5 g/dL (14.0-18.0); Mean Corpuscular HGB CONC 32.3 g/dL (32.0-36.0); Mean Corpuscular Hemoglobin 28.1 pg (27.0-31.0); Mean Platelet Volume 6.1 fL (7.4-10.4); Platelet Count 411 thou/uL (130-400); RBC Distribution Width 13.4 % (11.5-14.5); Red Blood Cell (RBC) Count 4.45 mill/uL (4.70-6.10); White Blood Cell (WBC) Count 9.3 thou/uL (4.8-10.8)
[2019-02-03] MEDS: HYDROcodone/Acetaminophen 5/325 mg Tablet PO PRN ×2 (09:08→19:52)
[2019-02-03 09:42] LABS: Anion Gap 12 mmol/L (10-20); BUN (Urea Nitrogen) 12 mg/dL (8.9-20.6); Calc. Creatinine Clearance 167 mL/min (70-130); Calcium 9.5 mg/dL (7.8-10.44); Carbon Dioxide 27 mmol/L (22-29); Chloride 102 mmol/L (98-107); Estimated GFR-MDRD 89; Glucose 126 mg/dL (70-105); Potassium 4.2 mmol/L (3.5-5.1); Sodium 137 mmol/L (136-145)
--- NOTE | 2019-02-03 16:48 | PDOC.PN ---
- Subjective Encounter Start Date: 02/03/19 Encounter Start Time: 04:30 Subjective: PATIENT RESTING WELL AND AFEBRILE. - Objective Resuscitation Status - Order Detail: 01/26/19 22:17 Resuscitation Status Routine Resuscitation Status: FULL: Full Resuscitation MAR Reviewed: Yes Vital Signs & Weight: Vital Signs (12 hours) Temp Pulse Resp BP BP Pulse Ox 02/03/19 15:58 98.4 F 80 19 151/82 H 94 L 02/03/19 11:13 98.4 F 80 17 123/74 94 L 02/03/19 09:04 80 148/79 H 02/03/19 07:02 97.7 F 80 19 148/79 H 94 L Weight Admit Weight 263 lb Weight 256 lb I&O: 02/02/19 02/03/19 02/04/19 06:59 06:59 06:59 Intake Total 800 Output Total 5 500 Balance 795 -500 Result Diagrams: 02/03/19 08:20 02/03/19 08:20 Additional Labs: Accuchecks 02/03/19 02/02/19 05:44 20:09 POC Glucose 117 H 169 H Phys Exam - Physical Examination HEENT: moist MMs Neck: no JVD Respiratory: no wheezing, no rales, no rhonchi Cardiovascular: no significant murmur, no rub Gastrointestinal: soft, non-tender, no distention, positive bowel sounds Musculoskeletal: pulses present Neurological: non-focal, normal sensation Psychiatric: normal affect Skin: no rash Dx/Plan (1) Hypertension Code(s): I10 - ESSENTIAL (PRIMARY) HYPERTENSION Status: Acute (2) Osteomyelitis of toe of left foot Code(s): M86.9 - OSTEOMYELITIS, UNSPECIFIED Status: Acute Comment: crp elevated, suspeect osteo- MRI.s/p Amputation and Wound vac (3) Ulcer of left foot due to type 2 diabetes mellitus Code(s): E11.621 - TYPE 2 DIABETES MELLITUS WITH FOOT ULCER; L97.529 - NON- PRESSURE CHRONIC ULCER OTH PRT LEFT FOOT W UNSP SEVERITY Status: Acute (4) Abdominal wall cellulitis Code(s): L03.311 - CELLULITIS OF ABDOMINAL WALL Status: Acute (5) Diabetes type 2, uncontrolled Code(s): E11.65 - TYPE 2 DIABETES MELLITUS WITH HYPERGLYCEMIA Status: Acute Qualifiers: Glycemic state: with hyperglycemia Qualified Code(s): E11.65 - Type 2 diabetes mellitus with hyperglycemia Comment: 1.I have d/w Dr Rodriguez ID and at this point of time will start patient on Cipro 500 mg po bid and Rifampin 300 mg po bid for 21 days. 2.We will do baseline lft's evaluation and advice follow up with ID. 3.Patient has wound vac arrangements done. 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 Please see comments section.
[2019-02-04] MEDS: HYDROcodone/Acetaminophen 5/325 mg Tablet PO PRN (07:49)
[2019-02-04] MEDS: Amlodipine 5 MG TAB PO SCH (07:50)
[2019-02-04] MEDS: Saccharomyces boulardii 250 MG CAP PO SCH (07:50)
[2019-02-04] MEDS: Sulfameth/Trimethoprim DS 800-160mg TAB PO SCH (07:50)
[2019-02-04] MEDS: metFORMIN 500 MG TAB PO SCH (07:50)
[2019-02-04] MEDS: Lisinopril 10 MG TAB PO SCH (07:51)
[2019-02-04] MEDS: Gabapentin 300 MG CAP PO SCH (07:51)
[2019-02-04] MEDS: Rifampin 300 MG CAP PO SCH (09:25)
[2019-02-04 09:51] LABS: ALT (SGPT) 11 U/L (8-55); AST (SGOT) 9 U/L (5-34); Albumin 3.1 g/dL (3.5-5.0); Alkaline Phosphatase 118 U/L (40-150); Anion Gap 9 mmol/L (10-20); BUN (Urea Nitrogen) 16 mg/dL (8.9-20.6); Bilirubin, Total 0.4 mg/dL (0.2-1.2); Calc. Creatinine Clearance 129 mL/min (70-130); Calcium 9.6 mg/dL (7.8-10.44); Carbon Dioxide 30 mmol/L (22-29); Chloride 100 mmol/L (98-107); Estimated GFR-MDRD 66; Glucose 239 mg/dL (70-105); Potassium 4.2 mmol/L (3.5-5.1); Protein, Total 7.1 g/dL (6.0-8.3); Sodium 135 mmol/L (136-145)
[2019-02-04 11:32] VITALS: BP 151/75; TEMP 97.9
--- NOTE | 2019-02-05 05:48 | DIS ---
DATE OF ADMISSION: 01/26/2019 DATE OF DISCHARGE: 02/04/2019 DISCHARGING PHYSICIAN: Dr. Sonido Smith. PRIMARY CARE PHYSICIAN: None. ADMISSION DIAGNOSES: 1. Diabetic foot with nonhealing ulcer for 1 month. 2. Sepsis, the patient was tachycardic and febrile. 3. Acute kidney injury. 4. Hyponatremia with a sodium of 126. 5. Diabetes mellitus, type 2, uncontrolled. DISCHARGING DIAGNOSES: 1. Osteomyelitis of the toe of the left foot, status post RAY amputation with wound VAC placement. 2. Diabetes mellitus, type 2. History of extensive noncompliance, currently on metformin 1000 mg b.i.d. 3. Abdominal wall cellulitis, treated. 4. Hyponatremia secondary to hypo-osmolality, resolved. 5. Obesity. 6. Acute kidney injury with prerenal azotemia, resolved. PROCEDURE: Procedure at [facility]; left great toe ray amputation with wound VAC placement. HOSPITAL COURSE: This is a 43-year-old male gentleman, admitted to the hospitalist services secondary to nonresolving left toe wound with extensive diagnosis of osteomyelitis eventually and abdominal wall cellulitis present on admission associated with cellulitis of the abdominal wall, which was present on admission causing the patient's initial septic picture without any evidence of hypotension. The patient was treated with broad spectrum antibiotics including IV vancomycin and Zosyn over the course of hospitalization, eventually had a ray amputation done successfully with good viable tissue. Eventual diagnosis of osteomyelitis, and based on culture and sensitivity report, Infectious Disease was consulted, who advised the patient to be on rifampin as well as Bactrim. Initial baseline LFT evaluations were done in the hospital and eventually, the patient has been advised to follow up with Infectious Disease as an outpatient with a CMP evaluation in one week. The patient tolerated his rifampin as well as Bactrim very well without any adverse consequences. Eventually, a wound VAC need was obtained with Case Management, and the patient was advised to follow up with Wound Care at [facility] on a scheduled basis as recommended. The patient was extensively educated regarding compliance on medications including antibiotic therapy for 21 days, which includes Bactrim double strength twice a day along with rifampin 300 mg twice a day for 21 days again. The patient was hemodynamically optimized on discharge. DISPOSITION: Discharge to home. PHYSICAL EXAMINATION: CVS: S1 and S2. CHEST: Bilateral air entry present. ABDOMEN: Soft. EXTREMITIES: No cyanosis. ALLERGIES: NO KNOWN DRUG ALLERGIES. ACTIVITY: As tolerated with fall precautions. DIET: 1800-kcal ADA diet. IMMUNIZATION HISTORY: Noncompliant. MEDICATIONS ON DISCHARGE: 1. Tylenol 650 mg q.4 p.r.n. 2. Lisinopril 10 mg daily for hypertension. 3. Rifampin 300 mg twice a day for 21 days. 4. Florastor 1 cap daily for 21 days. 5. Bactrim DS twice daily for 21 days. DISCHARGE PLAN: The patient has been advised and educated about the diagnosis, treatment, and followup. The patient has been advised about followup care with his Infectious Disease physician in 1 week with CMP and LFT evaluations. Advised about antibiotic therapy for 21 days. The patient was extensively advised about followup care with Wound Care at [facility]. The whole discharge process including discharge coordination took me more than 35 minutes. DME NEEDS: None ADVANCED DIRECTIVES: Full code. Job ID: [id number] [facility] HOSPITALJaclyn
== END 2019-02-04 13:42 | disposition home or self-care (01) | DRG 616 ==
LOC: ERS 21:01 → T4-B 21:51
PROVIDERS: ADMIT Hospitalist; ATTEND Hospitalist
PROC: 0Y6Q0Z1 Detachment at Left 1st Toe, High, Open Approach (ICD-10-PCS; principal; 2019-01-28)
DX: E11.69 Type 2 diabetes mellitus with other specified complication (principal); A41.9 Sepsis, unspecified organism; M86.8X7 Other osteomyelitis, ankle and foot; L03.311 Cellulitis of abdominal wall; E87.1 Hypo-osmolality and hyponatremia; M00.872 Arthritis due to other bacteria, left ankle and foot; Z79.84 Long term (current) use of oral hypoglycemic drugs; Z91.14 Patient's other noncompliance with medication regimen; E66.9 Obesity, unspecified; Z68.31 Body mass index [BMI] 31.0-31.9, adult; N17.9 Acute kidney failure, unspecified; I10 Essential (primary) hypertension; E11.621 Type 2 diabetes mellitus with foot ulcer; E11.65 Type 2 diabetes mellitus with hyperglycemia; E11.42 Type 2 diabetes mellitus with diabetic polyneuropathy
CPT/HCPCS: 36415; 36416; 71045; 80048; 80053; 80202; 83605; 85025; 85652; 86140; 87040; 87070; 87077; 87186; 87205; 88305; 88311; 93005; 96361; 96365; 96367; A9577; J0696; J2001; J2405; J2543; J2704; J2765; J3010; J3370; J7050

== ENCOUNTER 2019-02-07 10:38 | Outpatient (CLI) | payer SELFPAY ==
[~2019-02-07 10:38] MED LIST: Sodium Chloride 0.9% 15 ML NEB ONE
== END 2019-02-07 10:39 | disposition home or self-care (01) ==
LOC: WCC 10:38
PROVIDERS: ATTEND Family Medicine
DX: T81.89XD Other complications of procedures, not elsewhere classified, subsequent encounter (principal)
CPT/HCPCS: 97605; A4218

== ENCOUNTER 2019-02-11 14:05 | Outpatient (CLI) | payer SELFPAY | END 2019-02-11 14:06 | disposition home or self-care (01) | LOC: WCC 14:05 | PROVIDERS: ATTEND Family Medicine | DX: T81.89XD Other complications of procedures, not elsewhere classified, subsequent encounter (principal) | CPT/HCPCS: 36416; 97605; A4218 ==

== ENCOUNTER 2019-02-14 10:13 | Outpatient (CLI) | payer SELFPAY ==
--- NOTE | 2019-02-14 12:42 | ULT ---
VENOUS DOPPLER ULTRASOUND OF THE LEFT LOWER EXTREMITY: HISTORY: Left lower extremity edema. TECHNIQUE: Hobbs-scale ultrasound with color-flow and spectral Doppler imaging of the deep venous system of the l eft lower extremity is performed with hobbs-scale, color-flow, and spectral Doppler imaging. FINDINGS: There is good flow, compression, and augmentation noted in the left common femoral, femoral, deep fem oral, popliteal, posterior tibial, and greater saphenous veins in the left lower extremity. IMPRESSION: No evidence of deep venous thrombosis in the left lower extremity. POS: C
== END 2019-02-14 10:14 | disposition home or self-care (01) ==
LOC: ULT 10:13
PROVIDERS: ATTEND Surgery
DX: M79.89 Other specified soft tissue disorders (principal)

== ENCOUNTER 2019-02-14 14:44 | Outpatient (CLI) | payer SELFPAY | END 2019-02-14 14:45 | disposition home or self-care (01) | LOC: WCC 14:44 | PROVIDERS: ATTEND Family Medicine | DX: T81.89XD Other complications of procedures, not elsewhere classified, subsequent encounter (principal) | CPT/HCPCS: 36416; 97605; A4218 ==

== ENCOUNTER 2019-02-18 10:38 | Outpatient (CLI) | payer SELFPAY | END 2019-02-18 10:39 | disposition home or self-care (01) | LOC: WCC 10:38 | PROVIDERS: ATTEND Family Medicine | DX: T81.89XD Other complications of procedures, not elsewhere classified, subsequent encounter (principal) | CPT/HCPCS: 97605; A4218 ==

== ENCOUNTER 2019-02-21 13:46 | Outpatient (CLI) | payer SELFPAY ==
[2019-02-21] MEDS ORDERED: Sodium Chloride 0.9% 15 ML NEB ONE (18:00)
== END 2019-02-21 13:47 | disposition home or self-care (01) ==
LOC: WCC 13:46
PROVIDERS: ATTEND Family Medicine
DX: T81.89XD Other complications of procedures, not elsewhere classified, subsequent encounter (principal)
CPT/HCPCS: 97605; A4218

== ENCOUNTER 2019-02-24 09:56 | Outpatient (CLI) | payer SELFPAY | END 2019-02-24 09:57 | disposition home or self-care (01) | LOC: WCC 09:56 | PROVIDERS: ATTEND Family Medicine | DX: T81.89XD Other complications of procedures, not elsewhere classified, subsequent encounter (principal) | CPT/HCPCS: 97605 ==

== ENCOUNTER 2019-02-27 15:29 | Outpatient (CLI) | payer SELFPAY ==
--- NOTE | 2019-02-27 11:28 | HP ---
HISTORY OF PRESENT ILLNESS: Mr. Brennan Patton is a very pleasant 43-year-old gentleman, who presents to the Wound Center for evaluation of a wound of the left foot subsequent to left great toe ray amputation on 01/28/[address] Kaitlin Whalen. Negative pressure therapy was initiated subsequent to surgery and upon discharge from [facility], the patient was referred to the Wound Center for assistance with dressing changes of the wound VAC. The patient was discharged to home on Bactrim and rifampin, which he completed taking as prescribed. PAST MEDICAL HISTORY: Diabetes mellitus. PAST SURGICAL HISTORY: Left great toe ray amputation on 01/28/2019. MEDICATIONS: 1. Metformin. 2. Lisinopril. 3. Gabapentin. ALLERGIES: NO KNOWN DIAGNOSED ALLERGIES. SOCIAL HISTORY: Social history is negative for tobacco or EtOH use. FAMILY HISTORY: Family history is significant for diabetes mellitus. The patient states that his mother and father were both diagnosed with diabetes mellitus. PHYSICAL EXAMINATION: VITAL SIGNS: Temperature 97.8, pulse 90, respirations 17, blood pressure 173/83. Accu-Chek 125. GENERAL: A 43-year-old gentleman, sitting on table in examination room, in no acute distress. HEENT: Normocephalic, atraumatic. NECK: No nuchal rigidity. CHEST: Clear to auscultation. CV: Regular rate and rhythm. ABDOMEN: Soft. EXTREMITIES: Wound of the left foot is present subsequent to left great toe ray amputation. The dimensions of the wound are approximately 2.3 x 2.7 cm. Granulation tissue is present within the wound margins. Necrotic and nonviable tissue present within the wound margins was debrided with an excisional full-thickness debridement with the use of scissors and a curette. No purulent drainage is associated with the wound. Erythema of the skin surrounding the wound is present, which appears to be secondary to stasis changes associated with edema of the left foot. No maceration of the skin of the periwound is noted. A dorsalis pedis pulse and a posterior tibial pulse are both palpable on the left. Edema of the left foot and lower leg is present on today's exam. NEUROLOGIC: Grossly nonfocal. ASSESSMENT AND PLAN: 1. Left foot wound as described above subsequent to left great toe ray amputation on 01/28/[address] Kaitlin Whalen. Negative pressure therapy was initiated subsequent to surgery and will be continued with dressing changes of the wound VAC here in the Wound Center. No antibiotics will be prescribed today based upon the appearance of the wound. The patient will be seen by Dr. Whalen in 1 week. I will see Mr. Patton again in 2 weeks. 2. Diabetes mellitus. The patient's Accu-Chek in clinic today is 125. The patient has been told that for optimal wound healing, his blood glucoses should remain below 150. Job ID: [id number]
[2019-02-27] MEDS ORDERED: Sodium Chloride 0.9% 15 ML NEB ONE (18:00)
== END 2019-02-27 15:30 | disposition home or self-care (01) ==
LOC: WCC 15:29
PROVIDERS: ATTEND Family Medicine
DX: Z47.81 Encounter for orthopedic aftercare following surgical amputation (principal); Z89.412 Acquired absence of left great toe; E11.9 Type 2 diabetes mellitus without complications
CPT/HCPCS: A4218

== ENCOUNTER 2019-03-06 10:05 | Outpatient (CLI) | payer SELFPAY ==
[2019-03-06] MEDS ORDERED: Sodium Chloride 0.9% 15 ML NEB ONE (21:28)
== END 2019-03-06 10:06 | disposition home or self-care (01) ==
LOC: WCC 10:05
PROVIDERS: ATTEND Family Medicine
DX: T81.89XD Other complications of procedures, not elsewhere classified, subsequent encounter (principal)
CPT/HCPCS: A4218

== ENCOUNTER 2019-03-10 09:34 | Outpatient (CLI) | payer SELFPAY ==
--- NOTE | 2019-03-10 10:29 | PRG ---
DATE OF SERVICE: 03/10/2019 HISTORY OF PRESENT ILLNESS: Mr. Brennan Patton is a very pleasant 43-year-old gentleman, who presents to the Wound Center for evaluation of a wound of the left foot subsequent to left great toe ray amputation on 01/28/[address] Kaitlin Whalen. Negative pressure therapy was initiated subsequent to surgery and upon discharge from [facility], the patient was referred to the Wound Center for assistance with dressing changes of the wound VAC. The patient was discharged to home on Bactrim and rifampin, which he completed taking as prescribed. PHYSICAL EXAMINATION: VITAL SIGNS: Temperature 97.5, pulse 90, respirations 17, and blood pressure 180/80. Accu-Chek 321. EXTREMITIES: A wound of the left foot subsequent to left great toe ray amputation is present. The dimensions of the wound are approximately 2.6 x 2.3 cm. The dimensions of the wound at the time of the patient's visit on 02/27/2019 were approximately 2.3 x 2.7 cm. Granulation tissue was present within the wound margins. Necrotic and nonviable tissue present within the wound margins were debrided with an excisional full-thickness debridement with the use of scissors and a curette. No purulent drainage is associated with the wound. Less erythema of the skin surrounding the wound is present than at the time of the patient's visit on 02/27/2019. The erythema of the skin surrounding the wound appears to be secondary to stasis changes associated with edema of the left foot. No maceration of the skin of the periwound is noted. A dorsalis pedis pulse is palpable on the left. Less edema of the left foot is present on exam today than at the time of the patient's visit on 02/27/2019. ASSESSMENT AND PLAN: 1. Left foot wound as described above subsequent to left great toe ray amputation on 01/28/[address] Kaitlin Whalen. Negative pressure therapy was initiated subsequent to surgery and will be continued with dressing changes of the wound VAC here in the Wound Center. The patient will be seen by Dr. Whalen in 1 week. I will see Mr. Patton again in 2 weeks. 2. Diabetes mellitus. The patient's Accu-Chek in clinic today is 321. The patient has been reminded that for optimal wound healing, his blood glucoses should remain below 150. Job ID: [id number]
[2019-03-10] MEDS ORDERED: Sodium Chloride 0.9% 15 ML NEB ONE (21:34)
[2019-03-10] MEDS ORDERED: Lidocaine 2% 11 ML SYR ONE (21:34)
== END 2019-03-10 09:35 | disposition home or self-care (01) ==
LOC: WCC 09:34
PROVIDERS: ATTEND Family Medicine
DX: Z47.81 Encounter for orthopedic aftercare following surgical amputation (principal); E11.9 Type 2 diabetes mellitus without complications; Z89.412 Acquired absence of left great toe
CPT/HCPCS: 11042; 36416; A4218

== ENCOUNTER 2019-03-13 10:48 | Outpatient (CLI) | payer SELFPAY ==
[2019-03-13] MEDS ORDERED: Sodium Chloride 0.9% 15 ML NEB ONE (17:21)
== END 2019-03-13 10:49 | disposition home or self-care (01) ==
LOC: WCC 10:48
PROVIDERS: ATTEND Family Medicine
DX: T81.89XD Other complications of procedures, not elsewhere classified, subsequent encounter (principal)
CPT/HCPCS: 97605; A4218

== ENCOUNTER 2019-03-26 16:07 | Inpatient (IN) | payer SELFPAY ==
[~2019-03-26 16:07] MED LIST changes: +ISOVUE-370 76%-LOCM 1 ML ONE; -Sodium Chloride 0.9% 15 ML NEB ONE
[2019-03-26] MEDS ORDERED: Piperacillin/Tazobactam 4.5 GM VIAL ONE (16:37)
[2019-03-26 16:45] LABS: #Eosinphils 0.1 thou/uL (0.0-0.7); #Lymphocytes 1.2 thou/uL (1.20-3.40); #Monocytes 0.7 thou/uL (0.11-0.59); #Neutrophils 9.7 thou/uL (1.40-6.50); %Basophils 0.2 % (0.0-1.0); %Eosinophils 0.6 % (0.0-10.0); %Lymphocytes 10.1 % (21.0-51.0); %Monocytes 6.1 % (0.0-10.0); %Neutrophils 83.1 % (42.0-75.0); Hemoglobin 7.6 g/dL (14.0-18.0); Mean Corpuscular Hemoglobin 27.7 pg (27.0-31.0); Mean Corpuscular Volume 86.5 fL (78.0-98.0); Mean Platelet Volume 6.4 fL (7.4-10.4); Platelet Count 304 thou/uL (130-400); RBC Distribution Width 13.6 % (11.5-14.5); Red Blood Cell (RBC) Count 2.76 mill/uL (4.70-6.10); White Blood Cell (WBC) Count 11.6 thou/uL (4.8-10.8)
[2019-03-26 16:53] LABS: INR-International Normal Ratio 1.2; Prothrombin Time 15.5 SEC (12.0-14.7)
--- NOTE | 2019-03-26 17:05 | RAD ---
CHEST ONE VIEW: 03/26/19 HISTORY: Cough. Dyspnea. COMPARISON: 01/26/19 FINDINGS: The cardiac silhouette is magnified and enlarged. Pulmonary vasculature is now slightly engorged with patchy areas of parenchymal opacity scattered throughout each lung. No lobar consolidation or eviden ce of pneumothorax. The director recreation leads overlie the chest. IMPRESSION: Pulmonary vascular congestion. Borderline cardiomegaly. POS: CET
--- NOTE | 2019-03-26 17:09 | CT ---
EXAM: CT angiogram of the chest including 3-D rendering: HISTORY: Cough for one week COMPARISON: None FINDINGS: Suboptimal pulmonary artery opacification despite 2 injection attempts. No evidence for aortic aneurysm or dissection. The central pulmonary arteries show no evidence for intraluminal thrombus. The mid and more distal br anches are inadequately opacified for evaluation. Fairly extensive bilateral alveolar groundglass opacity changes in the right and left upper lobes, li ngula, right middle lobe, and upper portions of the lower lobes, nonspecific, given cardiomegaly this certainly could represent bilateral pulmonary edema versus symmetric atypical pneumonia or pneum onitis Minimal mediastinal adenopathy with a prevascular node measuring 1.3 cm, pretracheal node measuring 1 .1 cm, and subcarinal node measuring 1.4 cm in short axis. No significant pleural effusion or pericardial effusion. The visualized upper abdomen is unremarkable. IMPRESSION: Suboptimal opacification. No central pulmonary artery thrombosis. Cardiomegaly with bilateral alveolar groundglass opacities, possibly bilateral pulmonary edema versus atypical symmetric pneumonitis.
[2019-03-26 17:10] LABS: ALT (SGPT) 7 U/L (8-55); AST (SGOT) 7 U/L (5-34); Albumin 2.7 g/dL (3.5-5.0); Alkaline Phosphatase 134 U/L (40-150); Anion Gap 12 mmol/L (10-20); BUN (Urea Nitrogen) 13 mg/dL (8.9-20.6); Bilirubin, Total 0.5 mg/dL (0.2-1.2); Calc. Creatinine Clearance 0 mL/min (70-130); Calcium 7.7 mg/dL (7.8-10.44); Carbon Dioxide 24 mmol/L (22-29); Chloride 105 mmol/L (98-107); Estimated GFR-MDRD 83; Globulin 3.9 g/dL (2.4-3.5); Glucose 153 mg/dL (70-105); Protein, Total 6.6 g/dL (6.0-8.3); Sodium 137 mmol/L (136-145)
--- NOTE | 2019-03-26 17:23 | ULT ---
EXAM: Left lower extremity venous duplex ultrasound with color and spectral Doppler imaging: HISTORY: Left leg edema COMPARISON: None FINDINGS: Exam performed from the groin to the ankle including the visualized greater saphenous, common femoral , superficial femoral, profunda femoral, popliteal, trifurcation, and posterior tibial veins. There is phasic flow with normal compressibility and normal augmentation at all examined levels. No evidence for intraluminal thrombus. Incidental note of some enlarged nodes in the left groin altho ugh large nodes were noted on prior study as well. IMPRESSION:: No evidence for deep venous thrombosis.
[2019-03-26] MEDS ORDERED: Nitroglycerin 2% Ointment 1 INCH/1 GM Packet ONE (17:26)
[2019-03-26] MEDS ORDERED: Furosemide 40 MG/4 ML VIAL ONE (17:26)
[2019-03-26] MEDS ORDERED: Ondansetron ODT 4 MG TAB PO PRN (18:05)
[2019-03-26] MEDS ORDERED: HumaLOG 300 UNITS/3 ML VIAL SC PRN (18:13)
[2019-03-26] MEDS ORDERED: Dextrose 5% in Water 1,000 ML IV PRN (18:13)
[2019-03-26] MEDS ORDERED: Dextrose 50% Abboject 50 ML SYRINGE SLOW IVP PRN (18:13)
[2019-03-26 18:41] LABS: Bilirubin Negative (Negative); Blood, Urine Small (Negative); Clarity CLEAR (Clear); Glucose, Urine (Dipstick) Negative (Negative); Leukocyte Negative (Negative); Nitrite Negative (Negative); Protein, Urine (Dipstick) 30 mg/dL (Neg-Trace); Specific Gravity, Urine 1.016 (1.002-1.036); Urobilinogen 0.2 mg/dL (0.2-1.0)
[2019-03-26 18:43] LABS: Bacteria/HPF None Seen HPF (None Seen); Hyaline Casts/LPF 0-3 HYALINE CAST LPF (0-3 Hyaline); Pathc Cast-AUWi Flag 0.27 (0-2.49); RBC/HPF 0-3 HPF (0-3); Squamous Epithelial 0-3 HPF (0-3); WBC/HPF 0-3 HPF (0-3)
[2019-03-26] MEDS ORDERED: Furosemide 40 MG/4 ML VIAL SLOW IVP SCH (18:45)
--- NOTE | 2019-03-26 19:58 | HP ---
CHIEF COMPLAINT: Shortness of breath. HISTORY OF PRESENT ILLNESS: Mr. Patton is a 43-year-old man with a history of diabetes mellitus type 2, who is status post left 1st toe amputations for which a wound VAC was placed and recently removed. The patient states he has had a cough for the last week with progressive worsening in the cough, which remains nonproductive and associated shortness of breath which has continued to worsen as well. The patient states he is unable to take deep breaths due to immediate coughing fits. Denies any hemoptysis or chest pain, but reports generalized muscle aches and joint pains. He has felt feverish at home and per EMS, he had a temperature of a 103.2. Temperature done here in the emergency department was 100.1. He was noted to be tachycardic in the 120s with EMS and on arrival here , he was tachycardic at 111. He underwent imaging studies including a chest x-ray which demonstrated pulmonary vascular congestion and borderline cardiomegaly. Due to the swelling involving the left lower leg, he underwent a CT angiogram of the chest to rule out pulmonary embolus. He was noted to have no central pulmonary artery thrombosis, but was noted to have cardiomegaly with bilateral alveolar ground- glass opacities, possibly bilateral pulmonary edema versus atypical symmetric pneumonitis. The patient states the lower leg often becomes swollen whenever he walks around a lot and states he did a lot of walking yesterday. The patient was given 40 mg of IV Lasix and started on antibiotics with vancomycin and Zosyn for presumed sepsis from pulmonary source. He is suspected to have an underlying pneumonia in addition to the pulmonary edema. The patient denies any history of CHF or coronary artery disease. He has never undergone any cardiac workup in the past. REVIEW OF SYSTEMS: The patient reports having pain in the right groin associated with coughing fits. He has not noted any bulging or constant discomfort. He states it happens only when he has severe coughing fits. Again, he denies having any sputum or hemoptysis. Has not had any chest pain. Reports generalized muscle aches and joint pains. He lives alone and has not been exposed to anyone that is sick. He reports having a decreased appetite, but has not had any nausea or vomiting. Able to tolerate oral intake. Reports having a couple of episodes of loose stools last night. Did not note any blood in stools and denies watery stools. No abdominal pain or cramping. Denies any urinary symptoms. All other review of systems are negative apart from those mentioned above in HPI. PAST MEDICAL HISTORY: 1. Type 2 diabetes mellitus. 2. Diabetic neuropathy. 3. Hypertension. PAST SURGICAL HISTORY: Status post amputation of left 1st toe. SOCIAL HISTORY: The patient lives alone and is fully independent. Denies any alcohol use. Denies any history of tobacco use. No illicit drug use. PHYSICAL EXAMINATION: GENERAL: The patient appears obese, well-developed, generally unwell and notably fatigued. VITAL SIGNS: Temperature 100.1, pulse of 15, respirations 32, O2 saturation 90 % on room air and 95% on 2 L of oxygen, and blood pressure 124/81. HEENT: Normocephalic and atraumatic. Pupils are equal, round, and reactive to light. Sclerae are without icterus. Oropharynx is clear. No pharyngeal/ exudates, erythema, or sores. Mucous membranes are dry with tracking of the lips. NECK: Supple. No nuchal rigidity or stiffness. Full range of motion. LUNGS: Notable for decreased breath sounds at the bases and difficult to assess for any rales/crackles given the persisting coughing and subsequent groaning with any deep inspiration. No notable wheezing at present. CARDIAC: Regular rate and rhythm. ABDOMEN: Soft, nontender, nondistended. Normoactive bowel sounds present. No guarding or rigidity. RIGHT GROIN: Without any tenderness, swelling, redness, or mass when coughing forcefully or weightbearing down. EXTREMITIES: Notable for significant swelling in the left lower leg including the foot. Wound present at the site of first left toe amputation. No purulent discharge, but very slight surrounding erythema, very slight warmth to touch. NEUROLOGIC: Alert and oriented x3. Reduced sensation in the left foot due to neuropathy. LABORATORY DATA: White blood count 11.6, hemoglobin 7.6, hematocrit 23.9, and platelets 304. PT 15.5, INR 1.2, and PTT 32. Sodium 137, potassium 4.0, BUN 13 , creatinine 0.98, GFR 83, glucose 153, lactic acid 1.4, calcium 7.7, total bilirubin 0.5, AST 7, ALT 7, alkaline phosphatase 134. Troponin negative. BNP 129.6, albumin 2.7, and globulin 3.9. IMAGING DATA: As mentioned above in HPI. IMPRESSION: Mr. Patton is a pleasant 43-year-old man who is being admitted for management of the followin. Shortness of breath. CT angiogram has demonstrated findings consistent with pulmonary edema versus pneumonitis. BNP is only mildly elevated. He has no known history of congestive heart failure. He has undergone an echocardiogram. He has received 40 mg of Lasix in the ED and continues to feel short of breath. We will give him an additional 40 mg of Lasix IV. We will obtain an echo. The patient has been started IV antibiotics for suspected underlying pneumonia. Additional laboratory studies have been added including procalcitonin. In addition, we will obtain influenza screen and urinalysis with urine culture. Blood cultures pending. 2. Cough. We will start him on Tylenol with Codeine to help control temperature as well as his cough. Guaifenesin also requested. 3. Left lower leg swelling. The patient is status post amputation of left first toe approximately 1 month ago. Recently, had wound VAC removed. Very slight erythema. The patient states this always typically gets when he has been walking excessively, which he did so yesterday. Venous Doppler has been requested and is pending at this time. We will continue to monitor. 4. Type 2 diabetes. We will resume home medications and initiate insulin sliding scale. Continue to monitor blood glucose. 5. GI prophylaxis. 6. Deep venous thrombosis prophylaxis with DEEJAY hose. Awaiting results of venous Doppler given suspected deep venous thrombosis. 7. Full code status. The patient has indicated his surrogate decision maker would be his aunt, Lillian Carvajal. The patient's case was discussed with attending who agrees with plan of care as described above. Job ID: [id number] [facility]
[2019-03-26] MEDS ORDERED: Acetaminophen 325 MG TAB ONE (20:31)
[2019-03-26 20:43] LABS: Troponin I Less than 0.010 ng/mL (< 0.028)
[2019-03-26] MEDS ORDERED: Famotidine/PF 20 mg/2ml Vial SLOW IVP SCH (21:00)
[2019-03-26] MEDS: Guaifenesin DM 100-10/5 ML UDCUP PO PRN (22:36)
[2019-03-26] MEDS: traMADol HCl 50 MG TAB PO PRN (22:36)
[2019-03-26 23:00] VITALS: BMI 31.7
[2019-03-27 00:13] LABS: Troponin I Less than 0.010 ng/mL (< 0.028)
[2019-03-27] MEDS: Guaifenesin DM 100-10/5 ML UDCUP PO PRN ×2 (03:55→20:41)
[2019-03-27 06:49] LABS: #Eosinphils 0.2 thou/uL (0.0-0.7); #Lymphocytes 1.1 thou/uL (1.20-3.40); #Monocytes 0.6 thou/uL (0.11-0.59); #Neutrophils 7.5 thou/uL (1.40-6.50); %Basophils 0.2 % (0.0-1.0); %Eosinophils 1.7 % (0.0-10.0); %Lymphocytes 12.1 % (21.0-51.0); %Monocytes 6.1 % (0.0-10.0); %Neutrophils 79.8 % (42.0-75.0); Hemoglobin 7.1 g/dL (14.0-18.0); Mean Corpuscular HGB CONC 30.6 g/dL (32.0-36.0); Mean Corpuscular Hemoglobin 26.1 pg (27.0-31.0); Mean Corpuscular Volume 85.5 fL (78.0-98.0); Mean Platelet Volume 6.7 fL (7.4-10.4); Platelet Count 286 thou/uL (130-400); RBC Distribution Width 13.7 % (11.5-14.5); White Blood Cell (WBC) Count 9.4 thou/uL (4.8-10.8)
[2019-03-27 07:14] LABS: ALT (SGPT) 7 U/L (8-55); AST (SGOT) 10 U/L (5-34); Albumin 2.8 g/dL (3.5-5.0); Alkaline Phosphatase 156 U/L (40-150); Anion Gap 14 mmol/L (10-20); BUN (Urea Nitrogen) 12 mg/dL (8.9-20.6); Bilirubin, Total 0.4 mg/dL (0.2-1.2); Calc. Creatinine Clearance 156 mL/min (70-130); Calcium 8.3 mg/dL (7.8-10.44); Carbon Dioxide 25 mmol/L (22-29); Chloride 101 mmol/L (98-107); Estimated GFR-MDRD 81; Globulin 4.4 g/dL (2.4-3.5); Glucose 159 mg/dL (70-105); Potassium 3.6 mmol/L (3.5-5.1); Protein, Total 7.2 g/dL (6.0-8.3); Sodium 136 mmol/L (136-145)
[2019-03-27] MEDS: Gabapentin 300 MG CAP PO SCH (09:29)
[2019-03-27] MEDS: Famotidine 20 MG TAB PO SCH ×2 (09:29→20:42)
[2019-03-27] MEDS: Lisinopril 10 MG TAB PO SCH (09:29)
[2019-03-27] MEDS: metFORMIN 500 MG TAB PO SCH ×2 (09:29→16:31)
[2019-03-27] MEDS: HumaLOG 300 UNITS/3 ML VIAL SC PRN (11:34)
[2019-03-27] MEDS ORDERED: Vancomycin HCl 1 GM in Premix Bag 1 BAG IVPB SCH (17:45)
[2019-03-27] MEDS ORDERED: Furosemide 20 MG/2 ML VIAL SLOW IVP SCH (18:00)
--- NOTE | 2019-03-27 18:00 | PDOC.PN ---
- Subjective Encounter Start Date: 03/27/19 Encounter Start Time: 17:59 Pt seen for followup re: shortness of berath. c/o dry cough. No fevers today, had fever yesterday. - Objective Resuscitation Status - Order Detail: 03/26/19 18:05 Resuscitation Status Routine Co-Sign Provider: Resuscitation Status: FULL: Full Resuscitation MAR Reviewed: Yes Vital Signs & Weight: Vital Signs (12 hours) Temp Pulse Resp BP BP BP Pulse Ox 03/27/19 16:32 97.6 F 89 18 158/78 H 93 L 03/27/19 14:56 89 16 96 03/27/19 12:36 97.7 F 92 18 146/72 H 96 03/27/19 11:06 84 16 98 03/27/19 09:29 158/72 H 03/27/19 08:13 97.5 F L 92 18 158/72 H 96 03/27/19 07:09 98 03/27/19 07:06 91 16 98 03/27/19 06:39 62 123/59 L Weight Admit Weight 261 lb Weight 261 lb I&O: 03/26/19 03/27/19 03/28/19 06:59 06:59 06:59 Intake Total 1100 Output Total 1300 Balance -200 Result Diagrams: 03/27/19 06:29 03/27/19 06:29 Additional Labs: Accuchecks 03/27/19 03/27/19 03/27/19 16:51 10:49 05:31 POC Glucose 159 H 165 H 172 H 03/26/19 03/26/19 23:34 21:33 POC Glucose 278 H 234 H EKG Reviewed by me: Yes (Tele: NSR) Phys Exam - Physical Examination Obese HEENT: moist MMs, sclera anicteric, oral pharynx no lesions, 2+ tonsils Neck: no nodes, no JVD, supple, full ROM Respiratory: wheezing present Cardiovascular: RRR, no rub S1, S2 Gastrointestinal: soft, non-tender, positive bowel sounds distended Musculoskeletal: edema present s/p L great toe amputation Neurological: moves all 4 limbs Psychiatric: normal affect, A&O x 3 Deviation from normal: purulent discharge from wound Dx/Plan (1) Shortness of breath Code(s): R06.02 - SHORTNESS OF BREATH Status: Acute Comment: likely due to combination of human metapneumovirus infection and CHF (2) Infection due to human metapneumovirus (hMPV) Code(s): B97.81 - HUMAN METAPNEUMOVIRUS THE CAUSE OF DISEASES CLASSD [id number] Status: Acute Comment: symptomatic management (3) MRSA bacteremia Code(s): R78.81 - BACTEREMIA Status: Acute Comment: in 1/2 cultures, continue vancomycin (4) CHF (congestive heart failure) Code(s): I50.9 - HEART FAILURE, UNSPECIFIED Status: Suspected Comment: continue furosemide, await 2D echo (5) Diabetic foot infection Code(s): E11.628 - TYPE 2 DIABETES MELLITUS WITH OTHER SKIN COMPLICATIONS; L08.9 - LOCAL INFECTION OF THE SKIN AND SUBCUTANEOUS TISSUE, UNSP Status: Chronic - Plan * . Review of Systems - Review of Systems Constitutional: negative: fever, chills, sweats, weakness, malaise Respiratory: Cough, Dry, SOB with Excertion. negative: Shortness of Breath, Hemoptysis, Pleuritic Pain, Sputum, Wheezing Cardiovascular: edema. negative: chest pain, palpitations, orthopnea, paroxysmal nocturnal dyspnea, light headedness Gastrointestinal: negative: Nausea, Vomiting, Abdominal Pain, Diarrhea, Constipation, Melena, Hematochezia Genitourinary: negative: Dysuria, Frequency, Incontinence, Hematuria, Retention - Medications/Allergies Allergies/Adverse Reactions: Allergies Allergy/AdvReac Type Severity Reaction Status Date / Time No Known Drug Allergies Allergy Verified 03/26/19 21:36 Medications: Current Medications Acetaminophen (Tylenol) 650 mg PO Q4H PRN PRN Reason: Headache/Fever/Mild Pain (1-3) Albuterol/Ipratropium (Duoneb) 3 ml NEB [id number] [facility] Last Admin: 03/27/19 14:56 Dose: 3 ml Dextrose/Water (Dextrose 50%) 25 gm SLOW IVP PRN PRN PRN Reason: Hypoglycemia Famotidine (Pepcid) 20 mg PO BID [facility] Last Admin: 03/27/19 09:29 Dose: 20 mg Furosemide (Lasix) 20 mg SLOW IVP NOW JOHANA Stop: 03/27/19 20:00 Furosemide (Lasix) 20 mg SLOW IVP 0600,1400 [facility] Gabapentin (Neurontin) 300 mg PO DAILY [facility] Last Admin: 03/27/19 09:29 Dose: 300 mg Glucagon (Glucagon) 1 mg IM PRN PRN PRN Reason: Hypoglycemia Guaifenesin/Dextromethorphan (Robitussin Dm) 15 ml PO Q4H PRN PRN Reason: Cough Last Admin: 03/27/19 03:55 Dose: 15 ml Dextrose/Water (D5w) 1,000 mls @ 0 mls/hr IV .Q0M PRN PRN Reason: Hypoglycemia Vancomycin HCl 1.75 gm/ Sodium (Chloride) 500 mls @ 250 mls/hr IVPB 0200,1000, 1800 [facility] Insulin Human Lispro (Humalog) 0 units SC .MILD SLIDING SCALE PRN PRN Reason: Mild Correctional Scale Last Admin: 03/27/19 11:34 Dose: 2 unit Insulin Human Lispro (Humalog) 0 units SC .BEDTIME SLIDING SC PRN PRN Reason: Bedtime Correctional Scale Lisinopril (Zestril) 10 mg PO DAILY [facility] Last Admin: 03/27/19 09:29 Dose: 10 mg Metformin HCl (Glucophage) 1,000 mg PO BID-[facility] Last Admin: 03/27/19 16:31 Dose: 1,000 mg Miscellaneous Medication (Pharmacy To Dose) 1 each IVPB PRN PRN PRN Reason: Pharmacy to dose Ondansetron HCl (Zofran Odt) 4 mg PO Q6H PRN PRN Reason: Nausea/Vomiting Sodium Chloride (Flush - Normal Saline) 10 ml IVF Q12HR PRN PRN Reason: Saline Flush Sodium Chloride (Flush - Normal Saline) 10 ml IVF PRN PRN PRN Reason: Saline Flush Tramadol HCl (Ultram) 50 mg PO Q4H PRN PRN Reason: Pain Last Admin: 03/26/19 22:36 Dose: 50 mg
[2019-03-27] MEDS: Vancomycin HCl 1.75 GM in Sodium Chloride 0.9% 500 ML IVPB SCH (18:32)
[2019-03-27] MEDS: Acetaminophen 325 MG TAB PO PRN (23:34)
[2019-03-28] MEDS ORDERED: diphenhydrAMINE 25 MG CAP PO ONE (02:41)
[2019-03-28] MEDS ORDERED: diphenhydrAMINE 25 MG CAP PO SCH (02:45)
[2019-03-28] MEDS: Vancomycin HCl 1.75 GM in Sodium Chloride 0.9% 500 ML IVPB SCH ×3 (03:25→17:51)
[2019-03-28] MEDS ORDERED: Furosemide 20 MG/2 ML VIAL SLOW IVP SCH (06:00)
[2019-03-28] MEDS: Famotidine 20 MG TAB PO SCH ×2 (09:42→20:34)
[2019-03-28] MEDS: metFORMIN 500 MG TAB PO SCH ×2 (09:42→17:51)
[2019-03-28] MEDS: Gabapentin 300 MG CAP PO SCH (09:42)
[2019-03-28] MEDS: Lisinopril 10 MG TAB PO SCH (09:42)
--- NOTE | 2019-03-28 11:52 | CON ---
DATE OF CONSULTATION: HISTORY OF PRESENT ILLNESS: Mr. Patton is a patient known to me from previous admissions. He was admitted this time with shortness of breath and suspected pneumonia, and I have been consulted to follow him for his left great toe wound. He underwent a left great toe ray amputation for abscess and osteomyelitis and had a VAC dressing and antibiotics postoperatively. He has had the VAC dressing discontinued since the wound has filled in and is doing wet-to-dry dressings at home. He states that usually the wound looks pretty good bit, but he had to walk around a lot this [place], and has had more swelling in the legs since that time. He is not having any pain and has not had much drainage. PAST MEDICAL HISTORY: Diabetes with peripheral neuropathy and hypertension. PAST SURGICAL HISTORY: Ray amputation of left first toe. SOCIAL HISTORY: The patient does not smoke, drink or use illicit drugs. He lives independently and works [place] his [place]. OUTPATIENT MEDICATIONS: 1. Gabapentin. 2. Lisinopril. 3. Metformin. INPATIENT MEDICATIONS: 1. Sliding scale insulin. 2. Pepcid. 3. Lasix. 4. Gabapentin. 5. DuoNeb. 6. Lisinopril. 7. Metformin. 8. Vancomycin. 9. He also received Zosyn on admission. REVIEW OF SYSTEMS: Ten-system review of systems is negative except per HPI. The patient is currently no longer short of breath, but still has a nonproductive cough. LABORATORY DATA: White count was initially elevated at 11.6, has come down to 9.4; hematocrit is low at 23; platelets 286. Glucose has been moderately elevated, but other LFTs and electrolytes are unremarkable except a slight elevation in alkaline phosphatase to 156. The patient has not had any imaging of his foot on this admission. PHYSICAL EXAMINATION: VITAL SIGNS: The patient has had low-grade temperatures up to 100.6, blood pressure is slightly elevated at 143/64, respirations 20, 92% saturated on 2 L nasal cannula, and heart rate is 97. GENERAL: Healthy-appearing man, in no acute distress, although he does cough frequently. HEENT: Unremarkable. NECK: Supple without lymphadenopathy or thyroid nodules. HEART: Regular in its rate and rhythm. I do not appreciate any murmurs, rubs or gallops. LUNGS: Lungs sound clear bilaterally. I do not appreciate any crackles, rubs or wheezes. ABDOMEN: Soft, nontender, and nondistended. EXTREMITIES: Warm and well perfused. He does have moderate edema of his left foot and some erythema near the amputation site. No expressible drainage, and the wound is clean and granulating, although this central portion appears somewhat pale. No exposed bone or expressible drainage. He has excellent pedal pulses. ASSESSMENT: Shortness of breath and suspected pneumonia. His left wound is stable compared to imaging obtained in [facility], and the patient states that he has been doing wound care at home as instructed, and we will continue with wet-to-dry dressings as an inpatient. No further surgical intervention is needed at this time. I will sign off for now. Please contact me if there are further concerns. Job ID: [id number]
--- NOTE | 2019-03-28 14:00 | PDOC.PN ---
- Subjective Encounter Start Date: 03/28/19 Encounter Start Time: 11:00 Subjective: feels weak but better than on admision -: has dry cough -: is amb in room a bit - Objective Resuscitation Status - Order Detail: 03/26/19 18:05 Resuscitation Status Routine Co-Sign Provider: Resuscitation Status: FULL: Full Resuscitation MAR Reviewed: Yes Vital Signs & Weight: Vital Signs (12 hours) Temp Pulse Resp BP BP BP Pulse Ox 03/28/19 12:25 97.8 F 84 20 132/71 96 03/28/19 10:32 84 16 94 L 03/28/19 09:42 158/72 H 03/28/19 08:30 96 03/28/19 08:25 97.8 F 83 20 123/78 95 03/28/19 06:47 92 L 03/28/19 06:46 87 16 92 L 03/28/19 02:40 99.6 F 97 20 143/64 H 92 L Weight Admit Weight 261 lb Weight 263 lb 6.4 oz I&O: 03/27/19 03/28/19 03/29/19 06:59 06:59 06:59 Intake Total 3579 Output Total 3885 Balance -306 Result Diagrams: 03/27/19 06:29 03/27/19 06:29 Additional Labs: Accuchecks 03/28/19 03/28/19 03/27/19 11:00 05:15 20:41 POC Glucose 266 H 234 H 191 H 03/27/19 16:51 POC Glucose 159 H Phys Exam - Physical Examination HEENT: PERRLA, sclera anicteric Neck: no JVD, supple Respiratory: no wheezing, no rales Cardiovascular: RRR, no significant murmur Gastrointestinal: soft, non-tender, positive bowel sounds Musculoskeletal: no edema, pulses present left foot in dressing Neurological: non-focal, moves all 4 limbs Psychiatric: A&O x 3 Dx/Plan (1) MRSA bacteremia Code(s): R78.81 - BACTEREMIA Status: Acute (2) Viral respiratory illness Code(s): J98.8 - OTHER SPECIFIED RESPIRATORY DISORDERS; B97.89 - OTH VIRAL AGENTS THE CAUSE OF DISEASES CLASSD ELSWHR Status: Acute Comment: parainfluenza (3) Hypertension Code(s): I10 - ESSENTIAL (PRIMARY) HYPERTENSION Status: Chronic Qualifiers: Hypertension type: essential hypertension Qualified Code(s): I10 - Essential (primary) hypertension (4) Osteomyelitis of toe of left foot Code(s): M86.9 - OSTEOMYELITIS, UNSPECIFIED Status: Chronic (5) Obesity (BMI 30.0-34.9) Code(s): E66.9 - OBESITY, UNSPECIFIED Status: Chronic - Plan is on vanc, afebrile from last 24hrs now -: echo shows no vegetations -: blood cultures 2/2 likely is growing mrsa -: has patchy infiltrated b/l -: dc lasix no evidence of chf, continue metformin and lisinopril * . Review of Systems - Medications/Allergies Allergies/Adverse Reactions: Allergies Allergy/AdvReac Type Severity Reaction Status Date / Time No Known Drug Allergies Allergy Verified 03/26/19 21:36 Medications: Current Medications Acetaminophen (Tylenol) 650 mg PO Q4H PRN PRN Reason: Headache/Fever/Mild Pain (1-3) Last Admin: 03/27/19 23:34 Dose: 650 mg Albuterol/Ipratropium (Duoneb) 3 ml NEB [id number] [facility] Last Admin: 03/28/19 10:32 Dose: 3 ml Dextrose/Water (Dextrose 50%) 25 gm SLOW IVP PRN PRN PRN Reason: Hypoglycemia Famotidine (Pepcid) 20 mg PO BID [facility] Last Admin: 03/28/19 09:42 Dose: 20 mg Gabapentin (Neurontin) 300 mg PO DAILY [facility] Last Admin: 03/28/19 09:42 Dose: 300 mg Glucagon (Glucagon) 1 mg IM PRN PRN PRN Reason: Hypoglycemia Guaifenesin/Dextromethorphan (Robitussin Dm) 15 ml PO Q4H PRN PRN Reason: Cough Last Admin: 03/27/19 20:41 Dose: 15 ml Dextrose/Water (D5w) 1,000 mls @ 0 mls/hr IV .Q0M PRN PRN Reason: Hypoglycemia Vancomycin HCl 1.75 gm/ Sodium (Chloride) 500 mls @ 250 mls/hr IVPB 0200,1000, 1800 [facility] Last Admin: 03/28/19 11:41 Dose: 500 mls Insulin Human Lispro (Humalog) 0 units SC .MILD SLIDING SCALE PRN PRN Reason: Mild Correctional Scale Last Admin: 03/27/19 11:34 Dose: 2 unit Insulin Human Lispro (Humalog) 0 units SC .BEDTIME SLIDING SC PRN PRN Reason: Bedtime Correctional Scale Lisinopril (Zestril) 10 mg PO DAILY [facility] Last Admin: 03/28/19 09:42 Dose: 10 mg Metformin HCl (Glucophage) 1,000 mg PO BID[facility] Last Admin: 03/28/19 09:42 Dose: 1,000 mg Miscellaneous Medication (Pharmacy To Dose) 1 each IVPB PRN PRN PRN Reason: Pharmacy to dose Ondansetron HCl (Zofran Odt) 4 mg PO Q6H PRN PRN Reason: Nausea/Vomiting Sodium Chloride (Flush - Normal Saline) 10 ml IVF Q12HR PRN PRN Reason: Saline Flush Sodium Chloride (Flush - Normal Saline) 10 ml IVF PRN PRN PRN Reason: Saline Flush Tramadol HCl (Ultram) 50 mg PO Q4H PRN PRN Reason: Pain Last Admin: 03/26/19 22:36 Dose: 50 mg
--- NOTE | 2019-03-28 14:48 | CON ---
DATE OF CONSULTATION: HISTORY OF PRESENT ILLNESS: Brennan Patton is a 43-year-old very pleasant gentleman, nonsmoker, nondrinker, who was admitted to the hospital with cough and shortness of breath. His x-ray shows cardiomegaly. His EF was normal. He has some diastolic dysfunction and he was consulted today regarding his persistent cough and shortness of breath. They states that prior to his recent admission, he was relatively healthy. He has been seeing wound care for a period of time for osteomyelitis involving his left foot, particularly the left great toe, status post amputation and wound care. He has gram-positive blood culture that is positive. No prior history of TB, pneumonia, or bronchial asthma. 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 PAST MEDICAL HISTORY: Diabetes. PREVIOUS SURGERIES: Left toe amputation. CHRONIC MEDICATIONS: 1. Metformin. 2. Lisinopril. 3. Gabapentin. ALLERGIES: NONE. SOCIAL HISTORY: As noted, robot operator. No alcohol or tobacco abuse. ALLERGIES: NONE. REVIEW OF SYSTEMS: Otherwise, 10-point negative. PHYSICAL EXAMINATION: VITAL SIGNS: On examination, his sats are 96% on room air, respiratory rate 20, temperature 97, pulse 84, and blood pressure 132/71. negative. CHEST: Minimal wheezing. CARDIAC: Normal S1 and S2. No gallops. ABDOMEN: No masses. DIAGNOSTIC DATA: X-ray as noted, no acute infiltrates. His lab showed white count 9000, H and H of 7 and 23, and platelet count 286. His chemistry profile shows normal BUN and creatinine, albumin is low at 2.8. Blood culture, MRSA, which is sensitive to the vancomycin that he is on. IMPRESSION: 1. Osteomyelitis, left toe, status post amputation. 2. Dyspnea and cough, etiology unclear, may be diastolic dysfunction. 3. Possibly some reactive airway disease. PLAN: 1. I have added Dulera to his present regime. It is possible that his cough could be aggravated by the Zestril. At this stage, we will not change any of the medication. We will continue to observe him on the Dulera. 2. Remains symptomatic. We will consider additional workup at that time. 3. Incidentally, he had a CT done of his chest on admission, which did not show any evidence of pulmonary emboli. There was ground-glass opacities in both lungs consistent with CHF. Consultation note, 70 minutes, 50% direct patient care. Job ID: [id number]
[2019-03-28 17:48] LABS: Vancomycin, Trough 26.9 ug/mL
[2019-03-28] MEDS: Mometasone/Formoterol 120 PUFF INHALER INH SCH (18:24)
[2019-03-28] MEDS ORDERED: diphenhydrAMINE 25 MG CAP PO PRN (19:22)
[2019-03-28] MEDS: Guaifenesin DM 100-10/5 ML UDCUP PO PRN (20:34)
[2019-03-28] MEDS ORDERED: hydrALAZINE 20 MG/ML VIAL SLOW IVP PRN (21:59)
--- NOTE | 2019-03-28 22:03 | PDOC.EVN ---
Event Note - Event Note Event Note: Called by RN re: Hypertension. Systolic 199. Patient asymptomatic. Normal HR. Takes Lisinopril 10 mg OD at baseline which he has been getting. Not receiving fluids. Placed order for Hydralazine and will check CBC/BMP (not done today). Continue to monitor.
[2019-03-28 22:37] LABS: #Eosinphils 0.3 thou/uL (0.0-0.7); #Lymphocytes 1.2 thou/uL (1.20-3.40); #Monocytes 0.4 thou/uL (0.11-0.59); #Neutrophils 4.9 thou/uL (1.40-6.50); %Basophils 0.5 % (0.0-1.0); %Eosinophils 3.8 % (0.0-10.0); %Monocytes 5.2 % (0.0-10.0); %Neutrophils 72.6 % (42.0-75.0); Hemoglobin 8.1 g/dL (14.0-18.0); Mean Corpuscular HGB CONC 32.6 g/dL (32.0-36.0); Mean Corpuscular Hemoglobin 27.9 pg (27.0-31.0); Mean Corpuscular Volume 85.6 fL (78.0-98.0); Mean Platelet Volume 6.6 fL (7.4-10.4); Platelet Count 318 thou/uL (130-400); RBC Distribution Width 13.5 % (11.5-14.5); Red Blood Cell (RBC) Count 2.89 mill/uL (4.70-6.10); White Blood Cell (WBC) Count 6.7 thou/uL (4.8-10.8)
[2019-03-28 22:59] LABS: Anion Gap 14 mmol/L (10-20); BUN (Urea Nitrogen) 11 mg/dL (8.9-20.6); Calc. Creatinine Clearance 195 mL/min (70-130); Calcium 8.7 mg/dL (7.8-10.44); Carbon Dioxide 28 mmol/L (22-29); Chloride 98 mmol/L (98-107); Estimated GFR-MDRD Greater than 90; Glucose 111 mg/dL (70-105); Potassium 3.9 mmol/L (3.5-5.1); Sodium 136 mmol/L (136-145)
[2019-03-29] MEDS: Mometasone/Formoterol 120 PUFF INHALER INH SCH ×2 (06:52→18:18)
[2019-03-29] MEDS: Lisinopril 10 MG TAB PO SCH (09:00)
[2019-03-29] MEDS ORDERED: Vancomycin HCl 1.75 GM in Sodium Chloride 0.9% 500 ML IVPB SCH (09:00)
[2019-03-29] MEDS: Amlodipine 10 MG TAB PO SCH (09:01)
[2019-03-29] MEDS: Gabapentin 300 MG CAP PO SCH (09:01)
[2019-03-29] MEDS: metFORMIN 500 MG TAB PO SCH ×2 (09:01→17:30)
[2019-03-29] MEDS: Famotidine 20 MG TAB PO SCH ×2 (09:01→20:25)
[2019-03-29] MEDS: Vancomycin HCl 1.75 GM in Sodium Chloride 0.9% 500 ML IVPB SCH ×2 (11:50→23:21)
--- NOTE | 2019-03-29 12:15 | PDOC.PN ---
- Subjective Encounter Start Date: 03/29/19 Encounter Start Time: 10:00 Subjective: no fever or sob or coughing -: is amb in room -: no chest pain, has back pain which is chronic per patient - Objective Resuscitation Status - Order Detail: 03/26/19 18:05 Resuscitation Status Routine Co-Sign Provider: Resuscitation Status: FULL: Full Resuscitation MAR Reviewed: Yes Vital Signs & Weight: Vital Signs (12 hours) Temp Pulse Resp BP BP Pulse Ox 03/29/19 10:43 90 14 03/29/19 09:01 100 03/29/19 08:20 97.8 F 78 20 167/72 H 92 L 03/29/19 06:52 100 14 03/29/19 03:37 97.9 F 97 18 168/69 H 93 L 03/29/19 02:14 87 18 Weight Admit Weight 261 lb Weight 261 lb 11.2 oz I&O: 03/28/19 03/29/19 03/30/19 06:59 06:59 06:59 Intake Total 3579 2230 Output Total 3885 1620 Balance -306 610 Result Diagrams: 03/28/19 22:10 03/28/19 22:10 Additional Labs: Accuchecks 03/29/19 03/29/19 03/28/19 10:44 05:30 20:27 POC Glucose 203 H 170 H 146 H 03/28/19 16:59 POC Glucose 188 H Phys Exam - Physical Examination HEENT: PERRLA, moist MMs Neck: no JVD, supple Respiratory: no wheezing, no rales Cardiovascular: RRR, no significant murmur Gastrointestinal: soft, non-tender, positive bowel sounds Musculoskeletal: no edema, pulses present Neurological: non-focal, moves all 4 limbs Psychiatric: normal affect, A&O x 3 Dx/Plan (1) MRSA bacteremia Code(s): R78.81 - BACTEREMIA Status: Acute (2) Viral respiratory illness Code(s): J98.8 - OTHER SPECIFIED RESPIRATORY DISORDERS; B97.89 - OTH VIRAL AGENTS THE CAUSE OF DISEASES CLASSD ELSWHR Status: Acute Comment: parainfluenza (3) Hypertension Code(s): I10 - ESSENTIAL (PRIMARY) HYPERTENSION Status: Chronic Qualifiers: Hypertension type: essential hypertension Qualified Code(s): I10 - Essential (primary) hypertension (4) Osteomyelitis of toe of left foot Code(s): M86.9 - OSTEOMYELITIS, UNSPECIFIED Status: Chronic (5) Obesity (BMI 30.0-34.9) Code(s): E66.9 - OBESITY, UNSPECIFIED Status: Chronic - Plan unclear source for mrsa (foot looks good per gen surg) -: ?spine mri's -: is on vancomycin, await ID opinion -: echo shows normal ef and diastolic dysfunction -: h/h and renal function is stable * . continue metformin and lisinopril. To ambulate as tolerated in [facility] Review of Systems - Medications/Allergies Allergies/Adverse Reactions: Allergies Allergy/AdvReac Type Severity Reaction Status Date / Time No Known Drug Allergies Allergy Verified 03/26/19 21:36 Medications: Current Medications Acetaminophen (Tylenol) 650 mg PO Q4H PRN PRN Reason: Headache/Fever/Mild Pain (1-3) Last Admin: 03/27/19 23:34 Dose: 650 mg Albuterol/Ipratropium (Duoneb) 3 ml NEB [id number] [facility] Last Admin: 03/29/19 10:43 Dose: 3 ml Amlodipine Besylate (Norvasc) 10 mg PO DAILY [facility] Last Admin: 03/29/19 09:01 Dose: 10 mg Dextrose/Water (Dextrose 50%) 25 gm SLOW IVP PRN PRN PRN Reason: Hypoglycemia Famotidine (Pepcid) 20 mg PO BID [facility] Last Admin: 03/29/19 09:01 Dose: 20 mg Gabapentin (Neurontin) 300 mg PO DAILY [facility] Last Admin: 03/29/19 09:01 Dose: 300 mg Glucagon (Glucagon) 1 mg IM PRN PRN PRN Reason: Hypoglycemia Guaifenesin/Dextromethorphan (Robitussin Dm) 15 ml PO Q4H PRN PRN Reason: Cough Last Admin: 03/28/19 20:34 Dose: 15 ml Hydralazine HCl (Apresoline) 10 mg SLOW IVP Q4H PRN PRN Reason: SBP Greater Than 180 Last Admin: 03/28/19 22:54 Dose: 10 mg Dextrose/Water (D5w) 1,000 mls @ 0 mls/hr IV .Q0M PRN PRN Reason: Hypoglycemia Vancomycin HCl 1.75 gm/ Sodium (Chloride) 500 mls @ 250 mls/hr IVPB 1100,2300 [facility] Insulin Human Lispro (Humalog) 0 units SC .MILD SLIDING SCALE PRN PRN Reason: Mild Correctional Scale Last Admin: 03/27/19 11:34 Dose: 2 unit Insulin Human Lispro (Humalog) 0 units SC .BEDTIME SLIDING SC PRN PRN Reason: Bedtime Correctional Scale Lisinopril (Zestril) 10 mg PO DAILY [facility] Last Admin: 03/29/19 09:00 Dose: 10 mg Metformin HCl (Glucophage) 1,000 mg PO BID-WM [facility] Last Admin: 03/29/19 09:01 Dose: 1,000 mg Miscellaneous Medication (Pharmacy To Dose) 1 each IVPB PRN PRN PRN Reason: Pharmacy to dose Mometasone Furoate/Formoterol Fumar (Dulera 200 Mcg/5 Mcg Inhaler) 2 puff INH BID-RT [facility] Last Admin: 03/29/19 06:52 Dose: 2 puff Ondansetron HCl (Zofran Odt) 4 mg PO Q6H PRN PRN Reason: Nausea/Vomiting Diphenhydramine 25 (Mg) 0 each PO HSPRN PRN PRN Reason: Insomnia Last Admin: 03/28/19 21:08 Dose: 1 each Sodium Chloride (Flush - Normal Saline) 10 ml IVF Q12HR PRN PRN Reason: Saline Flush Sodium Chloride (Flush - Normal Saline) 10 ml IVF PRN PRN PRN Reason: Saline Flush Tramadol HCl (Ultram) 50 mg PO Q4H PRN PRN Reason: Pain Last Admin: 03/26/19 22:36 Dose: 50 mg
--- NOTE | 2019-03-29 13:42 | PRG ---
DATE OF SERVICE: 03/29/2019 SUBJECTIVE: Brennan Patton is doing better this morning, less cough, less shortness of breath. OBJECTIVE: VITAL SIGNS: Sats are 95% on room air, respiratory rate 14, temperature 98, blood pressure 167/72. CHEST: No wheezing or crackles. CARDIAC: Normal S1 and S2. No gallops. ABDOMEN: No masses. IMPRESSION: Status post amputation of foot, methicillin-resistant Staphylococcus aureus, cough, reactive airway disease, diastolic dysfunction. He is on vancomycin. Pulmonary adamson, on Dulera. Continue supportive care. Disposition as per primary care physician. Job ID: [id number]
[2019-03-29] MEDS: HumaLOG 300 UNITS/3 ML VIAL SC PRN (19:10)
--- NOTE | 2019-03-29 21:51 | CON ---
DATE OF CONSULTATION: 03/29/2019 REASON FOR CONSULTATION: Bacteremia. HISTORY OF PRESENT ILLNESS: A 43-year-old whom I had seen recently when he presented with history of type 2 diabetes mellitus, inflammatory process in the left first toe, which led to amputation of the first ray. The margin of amputation was clear both visually as well as in the pathology report. Cultures yielded MRSA. The organism was susceptible to sulfa drugs, rifampin, and tetracycline. The patient was discharged on oral Bactrim plus rifampin for 21 days, which he will took faithfully. He also followed up with wound care, which was initially applied with negative pressure dressing. Despite of all these precautions, he still has developed this complication now. He started noticing general malaise, cough, dyspnea, and fever up to 103, came to the emergency room, he had evidence of inflammatory changes in the side of the left foot amputation. Chest x-ray with vascular congestion and cardiomegaly. CT of chest showed scattered areas of subsegmental infiltrates either edema or atypical pneumonitis. He was given the diuretics, vancomycin, and Zosyn, so Dr. Whalen has reevaluated the wound and the patient is having wound care management. It does not look like he is going to require any further intervention at this point in time, the patient had a repeat venous ultrasound, which did not show any deep vein thrombosis. Currently, he feels much better. He is awake, oriented, follows commands. No headaches. No visual symptoms, sore throat, odynophagia, or dysphagia. No cough or sputum production. No chest pain. No abdominal pain or diarrhea. No genitourinary symptoms. No more dyspnea. No back pain. No other joint symptoms. PAST MEDICAL HISTORY: Type 2 diabetes, neuropathy, hypertension. PAST SURGICAL HISTORY: Includes a left first ray amputation. SOCIAL HISTORY: Lives alone. Never smoker. No alcoholic beverage use. FAMILY HISTORY: Noncontributory. CURRENT MEDICATIONS: 1. DuoNeb. 2. Norvasc. 3. Pepcid. 4. Neurontin. 5. Apresoline. 6. Insulin. 7. Zestril. 8. Glucophage. 9. Zofran. 10. Ultram. 11. Vancomycin. PHYSICAL EXAMINATION: VITAL SIGNS: T-max 100.6 two days ago. He has been afebrile since. BP 160/76, pulse 70, respirations 20, and O2 saturation 95%. GENERAL: Appears in no distress. SKIN: Shows the area of the first MPJ amputation site the left side with dry scab at the base and pink erythema surrounding the area with moderate swelling. No drainage noted. This area has been debrided. The patient has a peripheral IV access. No lymphadenopathy. HEENT: Ocular movements conjugate. Sclerae white. Pupils are equal. Oral cavity is moist. Numerous teeth in place in fairly decent shape. NECK: Supple. No jugular venous distention. LUNGS: Symmetric breath sounds with faint basilar crackles. HEART: S1, S2. Regular rate without murmurs. ABDOMEN: Soft, not distended or tender. No ascites. No bladder distention. EXTREMITIES: Pulses are excellent in dorsalis pedis and popliteals. NEURO: Nonfocal including cognitive function. LABORATORY DATA: His white cell count is 11.6, down to 6.7, hemoglobin is at 8.1, MCV 85, platelets 318, 72% neutrophils, which is down from admission. INR 1.2. Chemistry with liver profile which was normal except for alkaline phosphatase 156, albumin 2.8. Creatinine is normal. Urinalysis was not remarkable. Vancomycin trough 26. Microbiology with MRSA in two sets of blood cultures with the same susceptibility profile except for resistance to rifampin. CT angiogram of the chest with suboptimal opacification, but no central pulmonary artery thrombosis, cardiomegaly and bilateral alveolar ground-glass opacities noted. ASSESSMENT: 1. Type 2 diabetes. 2. Left first ray amputation for management of osteomyelitis of the left first toe with methicillin-resistant Staphylococcus aureus retrieved. 3. Recrudescence of inflammatory process with methicillin-resistant Staphylococcus aureus bacteremia and pulmonary complications. DISCUSSION: Most likely, the patient has hematogenous pneumonia associated with MRSA bacteremia from the recrudescence of infection at the site of the amputation. It looks like the previous strain has become resistant to rifampin, which raises the possibility that the patient was only taking rifampin for a moment. This may explain why there has been recrudescence of infectious process. Now he will need protracted IV vancomycin at least for 6 weeks to be on the safe side. Echocardiogram has been completed and it showed a normal EF and no vegetations. We will write for a PICC line placement and arrange for outpatient vancomycin or daptomycin. Job ID: [id number]
[2019-03-30] MEDS: Mometasone/Formoterol 120 PUFF INHALER INH SCH ×2 (07:15→19:26)
[2019-03-30 08:32] LABS: ALT (SGPT) 8 U/L (8-55); AST (SGOT) 10 U/L (5-34); Albumin 2.9 g/dL (3.5-5.0); Alkaline Phosphatase 145 U/L (40-150); Anion Gap 9 mmol/L (10-20); BUN (Urea Nitrogen) 11 mg/dL (8.9-20.6); Bilirubin, Total 0.3 mg/dL (0.2-1.2); Calc. Creatinine Clearance 188 mL/min (70-130); Carbon Dioxide 30 mmol/L (22-29); Chloride 101 mmol/L (98-107); Estimated GFR-MDRD Greater than 90; Globulin 4.8 g/dL (2.4-3.5); Glucose 167 mg/dL (70-105); Potassium 3.6 mmol/L (3.5-5.1); Protein, Total 7.7 g/dL (6.0-8.3); Sodium 136 mmol/L (136-145)
[2019-03-30] MEDS: metFORMIN 500 MG TAB PO SCH ×2 (09:21→19:14)
[2019-03-30] MEDS: Lisinopril 10 MG TAB PO SCH (09:22)
[2019-03-30] MEDS: Gabapentin 300 MG CAP PO SCH (09:23)
[2019-03-30] MEDS: Famotidine 20 MG TAB PO SCH ×2 (09:23→21:02)
[2019-03-30] MEDS: Amlodipine 10 MG TAB PO SCH (09:23)
[2019-03-30 10:50] LABS: Vancomycin, Trough 16.1 ug/mL
--- NOTE | 2019-03-30 12:00 | PDOC.PN ---
- Subjective Encounter Start Date: 03/30/19 Encounter Start Time: 09:45 Subjective: feels better, no fever or sob -: is ambulating in room - Objective Resuscitation Status - Order Detail: 03/26/19 18:05 Resuscitation Status Routine Co-Sign Provider: Resuscitation Status: FULL: Full Resuscitation MAR Reviewed: Yes Vital Signs & Weight: Vital Signs (12 hours) Temp Pulse Resp BP BP BP Pulse Ox 03/30/19 10:07 98 03/30/19 09:23 98 183/87 H 03/30/19 09:22 183/87 H 03/30/19 08:00 98.9 F 96 18 183/87 H 98 03/30/19 04:20 97.1 F L 91 18 154/71 H 96 03/30/19 01:35 91 20 Weight Admit Weight 261 lb Weight 256 lb 14.4 oz I&O: 03/29/19 03/30/19 03/31/19 06:59 06:59 06:59 Intake Total 2230 1810 Output Total 1620 1420 Balance 610 390 Result Diagrams: 03/28/19 22:10 03/30/19 07:47 Additional Labs: Accuchecks 03/30/19 03/30/19 03/29/19 11:02 05:23 20:37 POC Glucose 172 H 176 H 172 H 03/29/19 16:37 POC Glucose 156 H Phys Exam - Physical Examination HEENT: PERRLA, moist MMs Neck: no JVD, supple Respiratory: no wheezing, no rales Cardiovascular: RRR, no significant murmur Gastrointestinal: soft, non-tender, positive bowel sounds Musculoskeletal: pulses present Neurological: non-focal, moves all 4 limbs Dx/Plan (1) MRSA bacteremia Code(s): R78.81 - BACTEREMIA Status: Acute (2) Viral respiratory illness Code(s): J98.8 - OTHER SPECIFIED RESPIRATORY DISORDERS; B97.89 - OTH VIRAL AGENTS THE CAUSE OF DISEASES CLASSD ELSWHR Status: Acute Comment: parainfluenza (3) Hypertension Code(s): I10 - ESSENTIAL (PRIMARY) HYPERTENSION Status: Chronic Qualifiers: Hypertension type: essential hypertension Qualified Code(s): I10 - Essential (primary) hypertension (4) Osteomyelitis of toe of left foot Code(s): M86.9 - OSTEOMYELITIS, UNSPECIFIED Status: Chronic (5) Obesity (BMI 30.0-34.9) Code(s): E66.9 - OBESITY, UNSPECIFIED Status: Chronic - Plan is on vanc, pharmacy to dose per protocol for osteomyelitis -: picc line in am for 6 weeks of vanc or dapto -: will need assistance with above meds (no insurance/financial resources) -: continue lisinopril, metformin and will add oral iron -: to ambulate as tolerated in hallway * . Pt prefers home infusion, lives alone but has friendly neighbours. Says [facility] [place] (his mom had them before). Await case management help for outpt antibiotic set up. Review of Systems - Medications/Allergies Allergies/Adverse Reactions: Allergies Allergy/AdvReac Type Severity Reaction Status Date / Time No Known Drug Allergies Allergy Verified 03/26/19 21:36 Medications: Current Medications Acetaminophen (Tylenol) 650 mg PO Q4H PRN PRN Reason: Headache/Fever/Mild Pain (1-3) Last Admin: 03/27/19 23:34 Dose: 650 mg Albuterol/Ipratropium (Duoneb) 3 ml NEB Q4H PRN PRN Reason: Dyspnea/Wheezing/SOB Amlodipine Besylate (Norvasc) 10 mg PO DAILY [facility] Last Admin: 03/30/19 09:23 Dose: 10 mg Dextrose/Water (Dextrose 50%) 25 gm SLOW IVP PRN PRN PRN Reason: Hypoglycemia Famotidine (Pepcid) 20 mg PO BID [facility] Last Admin: 03/30/19 09:23 Dose: 20 mg Gabapentin (Neurontin) 300 mg PO DAILY [facility] Last Admin: 03/30/19 09:23 Dose: 300 mg Glucagon (Glucagon) 1 mg IM PRN PRN PRN Reason: Hypoglycemia Guaifenesin/Dextromethorphan (Robitussin Dm) 15 ml PO Q4H PRN PRN Reason: Cough Last Admin: 03/28/19 20:34 Dose: 15 ml Hydralazine HCl (Apresoline) 10 mg SLOW IVP Q4H PRN PRN Reason: SBP Greater Than 180 Last Admin: 03/28/19 22:54 Dose: 10 mg Dextrose/Water (D5w) 1,000 mls @ 0 mls/hr IV .Q0M PRN PRN Reason: Hypoglycemia Vancomycin HCl 1.75 gm/ Sodium (Chloride) 500 mls @ 250 mls/hr IVPB 1100,2300 [facility] Insulin Human Lispro (Humalog) 0 units SC .MILD SLIDING SCALE PRN PRN Reason: Mild Correctional Scale Last Admin: 03/29/19 19:10 Dose: 2 unit Insulin Human Lispro (Humalog) 0 units SC .BEDTIME SLIDING SC PRN PRN Reason: Bedtime Correctional Scale Lisinopril (Zestril) 10 mg PO DAILY [facility] Last Admin: 03/30/19 09:22 Dose: 10 mg Metformin HCl (Glucophage) 1,000 mg PO BID-WM [facility] Last Admin: 03/30/19 09:21 Dose: 1,000 mg Miscellaneous Medication (Pharmacy To Dose) 1 each IVPB PRN PRN PRN Reason: Pharmacy to dose Mometasone Furoate/Formoterol Fumar (Dulera 200 Mcg/5 Mcg Inhaler) 2 puff INH BID-RT [facility] Last Admin: 03/30/19 07:15 Dose: 2 puff Ondansetron HCl (Zofran Odt) 4 mg PO Q6H PRN PRN Reason: Nausea/Vomiting Diphenhydramine 25 (Mg) 0 each PO HSPRN PRN PRN Reason: Insomnia Last Admin: 03/29/19 20:24 Dose: 1 each Sodium Chloride (Flush - Normal Saline) 10 ml IVF Q12HR PRN PRN Reason: Saline Flush Sodium Chloride (Flush - Normal Saline) 10 ml IVF PRN PRN PRN Reason: Saline Flush Tramadol HCl (Ultram) 50 mg PO Q4H PRN PRN Reason: Pain Last Admin: 03/26/19 22:36 Dose: 50 mg
[2019-03-30] MEDS: Vancomycin HCl 1.75 GM in Sodium Chloride 0.9% 500 ML IVPB SCH ×2 (12:11→23:37)
--- NOTE | 2019-03-30 13:19 | PRG ---
DATE OF SERVICE: 03/30/2019 SUBJECTIVE: Brennan Patton this morning is much better. OBJECTIVE: VITAL SIGNS: Temperature is 98, blood pressure 193/87, pulse 98, and sats are on 3L. CHEST: No wheezing or crackles. CARDIAC: Normal S1 and S2. No gallops. ABDOMEN: No masses. IMPRESSION: 1. Staphylococcus sepsis. 2. Osteomyelitis. 3. Diabetes. PLAN: The patient appears to have improved. We will continue supportive care. Not much Pulmonary could offer. Job ID: [id number]
[2019-03-30] MEDS ORDERED: Enoxaparin Sodium 40 MG/0.4 ML SYRINGE SC SCH (21:00)
[2019-03-30] MEDS ORDERED: metFORMIN 500 MG TAB PO SCH (21:15)
[2019-03-31] MEDS: Acetaminophen 325 MG TAB PO PRN (00:03)
[2019-03-31] MEDS: traMADol HCl 50 MG TAB PO PRN ×2 (02:04→10:50)
[2019-03-31] MEDS ORDERED: Gabapentin 300 MG CAP PO SCH ×2 (03:15→09:00)
[2019-03-31 05:59] LABS: #Eosinphils 0.4 thou/uL (0.0-0.7); #Lymphocytes 1.5 thou/uL (1.20-3.40); #Monocytes 0.5 thou/uL (0.11-0.59); #Neutrophils 4.9 thou/uL (1.40-6.50); %Basophils 0.4 % (0.0-1.0); %Eosinophils 5.4 % (0.0-10.0); %Neutrophils 67.2 % (42.0-75.0); Hemoglobin 8.8 g/dL (14.0-18.0); Mean Corpuscular HGB CONC 31.7 g/dL (32.0-36.0); Mean Corpuscular Volume 85.1 fL (78.0-98.0); Mean Platelet Volume 6.2 fL (7.4-10.4); Platelet Count 457 thou/uL (130-400); RBC Distribution Width 13.9 % (11.5-14.5); Red Blood Cell (RBC) Count 3.26 mill/uL (4.70-6.10); White Blood Cell (WBC) Count 7.3 thou/uL (4.8-10.8)
[2019-03-31] MEDS: HumaLOG 300 UNITS/3 ML VIAL SC PRN ×2 (06:02→12:02)
[2019-03-31 06:22] LABS: Anion Gap 14 mmol/L (10-20); BUN (Urea Nitrogen) 13 mg/dL (8.9-20.6); Calc. Creatinine Clearance 173 mL/min (70-130); Calcium 8.7 mg/dL (7.8-10.44); Carbon Dioxide 26 mmol/L (22-29); Chloride 102 mmol/L (98-107); Estimated GFR-MDRD Greater than 90; Glucose 181 mg/dL (70-105); Potassium 3.7 mmol/L (3.5-5.1); Sodium 138 mmol/L (136-145)
[2019-03-31] MEDS: Mometasone/Formoterol 120 PUFF INHALER INH SCH ×2 (06:48→19:36)
[2019-03-31] MEDS: Lisinopril 10 MG TAB PO SCH (08:15)
[2019-03-31] MEDS: Amlodipine 10 MG TAB PO SCH (08:15)
[2019-03-31] MEDS: metFORMIN 500 MG TAB PO SCH ×2 (08:15→17:19)
[2019-03-31] MEDS: Famotidine 20 MG TAB PO SCH (08:15)
[2019-03-31] MEDS: Vancomycin HCl 1.75 GM in Sodium Chloride 0.9% 500 ML IVPB SCH (10:34)
--- NOTE | 2019-03-31 15:09 | SPC ---
Sonographic guided right upper extremity PICC HISTORY: Foot infection. FINDINGS: After explaining the procedure and answering all questions, the right upper extremity was p repped and draped in usual sterile fashion. Sterile technique, buffered local anesthesia, sonographic guidance, and a 22-gauge needle were used to carefully accessed the brachial vein. Standa rd technique was used to place the tip of a 5 Khmer single lumen PICC so that the tip lies at the level of the superior vena cava. Catheter was flushed and secured externally. Patient tolerated the p rocedure well and was returned in unchanged condition. Fluoroscopy time 0.1 minute. IMPRESSION: Right upper extremity PICC is ready for use.
--- NOTE | 2019-03-31 15:13 | PDOC.PN ---
- Subjective Encounter Start Date: 03/31/19 Encounter Start Time: 08:15 Subjective: feels better, no complaints - Objective Resuscitation Status - Order Detail: 03/26/19 18:05 Resuscitation Status Routine Co-Sign Provider: Resuscitation Status: FULL: Full Resuscitation MAR Reviewed: Yes Vital Signs & Weight: Vital Signs (12 hours) Temp Pulse Resp BP BP BP Pulse Ox 03/31/19 12:00 98.4 F 77 18 155/78 H 92 L 03/31/19 11:00 98.4 F 77 18 155/78 H 92 L 03/31/19 08:15 83 183/87 H 03/31/19 08:00 98.1 F 83 18 176/91 H 92 L 03/31/19 07:39 98.1 F 83 18 176/91 H 92 L 03/31/19 03:33 98 F 90 20 169/72 H 94 L Weight Admit Weight 261 lb Weight 256 lb 14.4 oz I&O: 03/30/19 03/31/19 04/01/19 06:59 06:59 06:59 Intake Total 1810 2360 Output Total 1420 850 Balance 390 1510 Result Diagrams: 03/31/19 05:41 03/31/19 05:41 Additional Labs: Accuchecks 03/31/19 03/31/19 03/30/19 10:56 05:57 21:12 POC Glucose 155 H 184 H 152 H 03/30/19 17:30 POC Glucose 131 H Phys Exam - Physical Examination HEENT: PERRLA, moist MMs Neck: no JVD, supple Respiratory: no wheezing, no rales Cardiovascular: RRR, no significant murmur Gastrointestinal: soft, non-tender, positive bowel sounds Musculoskeletal: pulses present left foot mild edema till ankle Neurological: non-focal, moves all 4 limbs Psychiatric: A&O x 3 Dx/Plan (1) MRSA bacteremia Code(s): R78.81 - BACTEREMIA Status: Acute (2) Viral respiratory illness Code(s): J98.8 - OTHER SPECIFIED RESPIRATORY DISORDERS; B97.89 - OTH VIRAL AGENTS THE CAUSE OF DISEASES CLASSD ELSWHR Status: Acute Comment: parainfluenza (3) Hypertension Code(s): I10 - ESSENTIAL (PRIMARY) HYPERTENSION Status: Chronic Qualifiers: Hypertension type: essential hypertension Qualified Code(s): I10 - Essential (primary) hypertension (4) Osteomyelitis of toe of left foot Code(s): M86.9 - OSTEOMYELITIS, UNSPECIFIED Status: Chronic (5) Obesity (BMI 30.0-34.9) Code(s): E66.9 - OBESITY, UNSPECIFIED Status: Chronic - Plan awaiting outpt vanc arrangement for dc plan -: vanc for total of 6 weeks -: h/h is stable -: continue lisinopril, metformin, lasix -: is ambulating and eating well now * . Review of Systems - Medications/Allergies Allergies/Adverse Reactions: Allergies Allergy/AdvReac Type Severity Reaction Status Date / Time No Known Drug Allergies Allergy Verified 03/26/19 21:36 Medications: Current Medications Acetaminophen (Tylenol) 650 mg PO Q4H PRN PRN Reason: Headache/Fever/Mild Pain (1-3) Last Admin: 03/31/19 00:03 Dose: 650 mg Albuterol/Ipratropium (Duoneb) 3 ml NEB Q4H PRN PRN Reason: Dyspnea/Wheezing/SOB Amlodipine Besylate (Norvasc) 10 mg PO DAILY [facility] Last Admin: 03/31/19 08:15 Dose: 10 mg Dextrose/Water (Dextrose 50%) 25 gm SLOW IVP PRN PRN PRN Reason: Hypoglycemia Enoxaparin Sodium (Lovenox) 40 mg SC 2100 [facility] Last Admin: 03/30/19 21:02 Dose: 40 mg Famotidine (Pepcid) 20 mg PO BID [facility] Last Admin: 03/31/19 08:15 Dose: 20 mg Gabapentin (Neurontin) 300 mg PO BID [facility] Last Admin: 03/31/19 08:15 Dose: 300 mg Glucagon (Glucagon) 1 mg IM PRN PRN PRN Reason: Hypoglycemia Guaifenesin/Dextromethorphan (Robitussin Dm) 15 ml PO Q4H PRN PRN Reason: Cough Last Admin: 03/28/19 20:34 Dose: 15 ml Hydralazine HCl (Apresoline) 10 mg SLOW IVP Q4H PRN PRN Reason: SBP Greater Than 180 Last Admin: 03/28/19 22:54 Dose: 10 mg Dextrose/Water (D5w) 1,000 mls @ 0 mls/hr IV .Q0M PRN PRN Reason: Hypoglycemia Vancomycin HCl 1.75 gm/ Sodium (Chloride) 500 mls @ 250 mls/hr IVPB 1100,2300 [facility] Last Admin: 03/31/19 10:34 Dose: 500 mls Insulin Human Lispro (Humalog) 0 units SC .MILD SLIDING SCALE PRN PRN Reason: Mild Correctional Scale Last Admin: 03/31/19 12:02 Dose: 2 unit Insulin Human Lispro (Humalog) 0 units SC .BEDTIME SLIDING SC PRN PRN Reason: Bedtime Correctional Scale Lisinopril (Zestril) 10 mg PO DAILY [facility] Last Admin: 03/31/19 08:15 Dose: 10 mg Metformin HCl (Glucophage) 1,000 mg PO BID-WM [facility] Last Admin: 03/31/19 08:15 Dose: 1,000 mg Miscellaneous Medication (Pharmacy To Dose) 1 each IVPB PRN PRN PRN Reason: Pharmacy to dose Mometasone Furoate/Formoterol Fumar (Dulera 200 Mcg/5 Mcg Inhaler) 2 puff INH BID-RT [facility] Last Admin: 03/31/19 06:48 Dose: 2 puff Ondansetron HCl (Zofran Odt) 4 mg PO Q6H PRN PRN Reason: Nausea/Vomiting Diphenhydramine 25 (Mg) 0 each PO HSPRN PRN PRN Reason: Insomnia Last Admin: 03/30/19 21:03 Dose: 1 each Sodium Chloride (Flush - Normal Saline) 10 ml IVF Q12HR PRN PRN Reason: Saline Flush Sodium Chloride (Flush - Normal Saline) 10 ml IVF PRN PRN PRN Reason: Saline Flush Tramadol HCl (Ultram) 50 mg PO Q4H PRN PRN Reason: Pain Last Admin: 03/31/19 10:50 Dose: 50 mg
[2019-03-31 16:08] VITALS: BP 152/82; TEMP 97.6
--- NOTE | 2019-03-31 17:32 | PRG ---
DATE OF SERVICE: 03/31/2019 SUBJECTIVE: Pooja is feeling well. No cough. No shortness of breath or chest pain. No abdominal pain. No diarrhea. OBJECTIVE: VITAL SIGNS: He has been afebrile. BP 150/82, pulse 86, respirations 20, and O2 saturation 96%. GENERAL: Awake, alert, and oriented. HEART: S1 and S2 regular rate. ABDOMEN: Soft, not distended. EXTREMITIES: Left foot with dressing in place and mild erythema. LABORATORY DATA: White cell count 7.3, hemoglobin 8.8, platelets 457. Sodium 138, creatinine 0.89. 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 The patient to continue on daptomycin once daily. The end date of therapy is scheduled for May 11 with weekly labs. Job ID: [id number]
--- NOTE | 2019-04-01 13:02 | DIS ---
DATE OF ADMISSION: 03/26/2019 DATE OF DISCHARGE: 03/31/2019 DISCHARGE DISPOSITION: To home. PRIMARY DISCHARGE DIAGNOSIS: Methicillin-resistant Staphylococcus aureus bacteremia, likely source is the left first-ray amputation site. SECONDARY DISCHARGE DIAGNOSES: 1. Parainfluenza viral illness. 2. Hypertension. 3. Obesity. 4. Recent osteomyelitis of the left 1st toe with ray amputation done during his last hospitalization here. PROCEDURES DONE DURING HOSPITALIZATION: Ultrasound venous Doppler of left lower extremity done showed no evidence of DVT. CT angio chest showed no central pulmonary artery embolus, cardiomegaly and bilateral alveolar ground-glass opacities, possibly bilateral pulmonary edema versus atypical symmetric pneumonitis. Echo with 2D Doppler showed EF of 60% to 65%. No obvious vegetations were seen and PICC line placed on 03/31/2019. Blood cultures x2 grew MRSA sensitive to ciprofloxacin, clindamycin, doxycycline, gentamicin, linezolid, levofloxacin, ofloxacin, tetracycline, Bactrim, and vancomycin. Urine culture, no growth. Respiratory virus panel PCR was positive for parainfluenza virus 3. Had a white count of 11 with 83% neutrophils on the day of admission. Discharge white count is 7.3, H and H of 8.8 and 27, and platelet count 457. Discharge BUN and creatinine are 13 and 0.8, albumin 2.9. DISCHARGE MEDICATIONS: 1. Daptomycin 800 mg IV daily till May 11. 2. Lisinopril 10 mg p.o. daily. 3. Norvasc 10 mg p.o. daily. 4. Gabapentin 300 mg p.o. twice daily. 5. Metformin 1000 mg twice daily. 6. Dulera inhaler 2 puffs twice daily. ALLERGIES: NO KNOWN DRUG ALLERGIES. INPATIENT CONSULTS: 1. Dr. Hernández for Pulmonology. 2. Dr. Danielle for Infectious Disease. 3. Dr. Whalen for General Surgery. DISCHARGE PLAN: The patient to follow up with Dr. Danielle in 4 weeks. He also needs to follow up with his primary care physician in 1 week. The patient needs weekly CBC, CRP, CMP, and sed rate to be faxed to Dr. Danielle' office. BRIEF COURSE DURING HOSPITALIZATION: The patient initially got admitted on the with complaints of shortness of breath and fever. He had a fever of 103 when EMS picked him up. The patient was essentially worked up for sepsis. He has had recent osteomyelitis with MRSA growing in his left 1st great toe and had ray amputation done for the same during his previous hospitalization here. The patient was on rifampin and Bactrim then. The patient apparently said he was compliant with his medications. His blood cultures x2 grew MRSA here during this hospitalization. He has had consultation with Dr. Danielle. The patient had bilateral ground-glass opacities in both his lungs and had consultation with Dr. Hernández. He was on IV antibiotics all through his stay and was on vancomycin for MRSA. Case Management consultation was requested in view of the patient not having financial resources and health insurance. He was placed on daptomycin 800 mg IV daily to be continued till May 11. This has been arranged by Case Management with hospital resources on court basis. Prior to discharge, he is ambulating and eating well. His fever has completely subsided from last 48 hours. He has been cleared by Dr. Danielle and Dr. Hernández for discharge. The patient was counseled with regard to medication compliance. He needs to follow up with his primary care physician in 1 week. The patient was also counseled to get his weekly labs, the results of which will be faxed to Dr. Danielle' office. Please see a [id number] documentation for the day of discharge on Virtual 3-D Display for Smartphones. Job ID: [id number] [facility]
== END 2019-03-31 20:00 | disposition home or self-care (01) | DRG 871 ==
LOC: ERS 16:07 → 2NO 20:45 → SURG A 03-30 19:05
PROVIDERS: ADMIT Internal Medicine; ATTEND Internal Medicine
PROC: 02HV33Z Insertion of Infusion Device into Superior Vena Cava, Percutaneous Approach (ICD-10-PCS; principal; 2019-03-31)
DX: A41.02 Sepsis due to Methicillin resistant Staphylococcus aureus (principal); J18.9 Pneumonia, unspecified organism; M86.172 Other acute osteomyelitis, left ankle and foot; B97.81 Human metapneumovirus as the cause of diseases classified elsewhere; E66.9 Obesity, unspecified; B95.62 Methicillin resistant Staphylococcus aureus infection as the cause of diseases classified elsewhere; E11.628 Type 2 diabetes mellitus with other skin complications; I11.0 Hypertensive heart disease with heart failure; I50.9 Heart failure, unspecified; E11.42 Type 2 diabetes mellitus with diabetic polyneuropathy; E11.69 Type 2 diabetes mellitus with other specified complication; Z68.31 Body mass index [BMI] 31.0-31.9, adult; Z79.84 Long term (current) use of oral hypoglycemic drugs; Z79.899 Other long term (current) drug therapy
CPT/HCPCS: 36415; 36416; 36569; 71045; 71275; 80048; 80053; 80202; 81003; 81015; 82274; 83605; 83880; 84145; 84484; 85025; 85610; 85730; 87040; 87077; 87086; 87149; 87186; 87633; 87804; 93005; 93306; 94640; 94760; 96365; 96367; 96375; C1751; J0360; J1650; J1940; J2543; J3370; J7050; J7620; Q0163; Q9966; S0028

== ENCOUNTER 2019-05-23 05:06 | Inpatient (IN) | payer SELFPAY ==
[2019-05-23] MEDS ORDERED: Ketorolac Tromethamine 60 MG/2 ML VIAL ONE (06:33)
[2019-05-23] MEDS ORDERED: Diazepam 5 MG TAB ONE (06:33)
--- NOTE | 2019-05-23 07:50 | RAD ---
LUMBAR SPINE 3 VIEWS: HISTORY: Low back pain FINDINGS: There are degenerative changes most prominent at L5-S1 level. There is erosion of the anterior superi or aspect of the L4 vertebral body, suspicious for osteomyelitis. Further evaluation with MRI of the lumbar spine with and without IV contrast is recommended.
[2019-05-23 07:58] LABS: #Eosinphils 0.1 thou/uL (0.0-0.7); #Lymphocytes 1.6 thou/uL (1.20-3.40); #Monocytes 0.6 thou/uL (0.11-0.59); #Neutrophils 5.6 thou/uL (1.40-6.50); %Basophils 0.4 % (0.0-1.0); %Eosinophils 0.9 % (0.0-10.0); %Lymphocytes 19.9 % (21.0-51.0); %Monocytes 8.1 % (0.0-10.0); %Neutrophils 70.7 % (42.0-75.0); Mean Corpuscular HGB CONC 31.2 g/dL (32.0-36.0); Mean Corpuscular Hemoglobin 24.9 pg (27.0-31.0); Mean Corpuscular Volume 79.8 fL (78.0-98.0); Mean Platelet Volume 5.9 fL (7.4-10.4); Platelet Count 523 thou/uL (130-400); RBC Distribution Width 17.4 % (11.5-14.5); Red Blood Cell (RBC) Count 3.21 mill/uL (4.70-6.10); White Blood Cell (WBC) Count 7.9 thou/uL (4.8-10.8)
[2019-05-23 08:30] LABS: ALT (SGPT) 8 U/L (8-55); AST (SGOT) 9 U/L (5-34); Albumin 3.1 g/dL (3.5-5.0); Alkaline Phosphatase 157 U/L (40-150); Anion Gap 16 mmol/L (10-20); BUN (Urea Nitrogen) 19 mg/dL (8.9-20.6); Bilirubin, Total 0.6 mg/dL (0.2-1.2); CK (CPK) 32 U/L (30-200); Calc. Creatinine Clearance 0 mL/min (70-130); Calcium 9.1 mg/dL (7.8-10.44); Carbon Dioxide 19 mmol/L (22-29); Chloride 99 mmol/L (98-107); Estimated GFR-MDRD 62; Globulin 4.9 g/dL (2.4-3.5); Glucose 203 mg/dL (70-105); Potassium 3.7 mmol/L (3.5-5.1); Sodium 130 mmol/L (136-145)
[2019-05-23] MEDS ORDERED: Lorazepam 2 MG/ML VIAL ONE (09:08)
--- NOTE | 2019-05-23 10:07 | MRI ---
MRI Lumbar Spine W WO Con History: Pain Comparison: Radiograph same day Findings: The exam was performed without intravenous contrast as the patient was unable to tolerate. Extensor motion limits the examination. There is discitis osteomyelitis at L3/L4 with endplate erosio n as well as replacement of the disc space with phlegmonous material and likely abscess. There is anterior epidural abscess measuring up 12 mm in transverse by 4 mm in AP dimension. There is abnormal edema within the paraspinal musculature with myositis at the L3 and L4 level. This involves the anterior and posterior paraspinal musculature Anterior right paravertebral abscess present at the L3/L4 level. There is edema within the bilateral pedicles. Severe degenerative disc space disease at L5/S1 with circumferential disc osteophyte complex. Impression: L3/L4 discitis osteomyelitis with posterior epidural abscess narrowing the thecal sac to approximately 5 mm. There is phlegmonous changes and myositis within the anterior and posterior paraspinal soft tissues at L3/L4 level with right anterior paravertebral phlegmon/abscess. Evaluation for abscess is limited without intravenous contrast.
--- NOTE | 2019-05-23 10:12 | MRI ---
MRI Thoracic Spine W WO Con History: Right lower extremity weakness. Comparison: None. Findings: The exam was performed without intravenous contrast as the patient was unable to tolerate a nd there is extensive motion. The aortic contour is not aneurysmal. No evidence of discitis osteomyelitis of the thoracic spine. No significant neural foraminal or spinal canal narrowing is appreciated given the limitation of motion. Cord signal appears normal. Impression: Limited examination of the thoracic spine is without fracture, malalignment, listhesis, d iscitis, nor osteomyelitis.
--- NOTE | 2019-05-23 10:15 | MRI ---
MRI Cervical Spine W WO Con History: Right lower extremity weakness Comparison: None. Findings: Exam is severely limited due to motion artifact. No definite evidence of discitis osteomyel itis. Mild thickening of the posterior longitudinal ligament from C4-C7 a be sequelae of ossification posterior longitudinal ligament although severely limited due to motion. Impression: Severe limitation of the exam due to motion. Recommend repeating the examination with pat ient under sedation if clinically warranted.
[2019-05-23] MEDS ORDERED: Heparin 1,000 UNITS/ML VIAL ONE (11:11)
--- NOTE | 2019-05-23 13:22 | CT ---
CT OF THE BRAIN WITHOUT CONTRAST: COMPARISON: None. HISTORY: Multiple complaints including multiple falls. Abdominal pain. TECHNIQUE: Multiple contiguous axial images were obtained in a CT of the brain without contrast. FINDINGS: The brain is normal in morphology and attenuation without focal lesions or confluent areas of infarct ion. There is no evidence of hydrocephalus, intracranial hemorrhage, or extraaxial fluid collection. The calvarium and overlying soft tissues are unremarkable. The visualized paranasal sinuses and mast oid air cells are well aerated. IMPRESSION: No evidence of acute intracranial abnormality. POS: CET
[2019-05-23] MEDS ORDERED: Piperacillin/Tazobactam 4.5 GM VIAL ONE (13:40)
[2019-05-23] MEDS ORDERED: Dextrose 5% in Water 1,000 ML IV PRN (15:25)
[2019-05-23] MEDS ORDERED: Acetaminophen 325 MG TAB PO PRN (15:25)
[2019-05-23] MEDS ORDERED: Ondansetron ODT 4 MG TAB PO PRN (15:25)
[2019-05-23] MEDS ORDERED: Dextrose 50% Abboject 50 ML SYRINGE SLOW IVP PRN (15:25)
[2019-05-23] MEDS ORDERED: Vancomycin HCl 1 GM in Premix Bag 1 BAG IVPB SCH ×2 (16:00→21:00)
--- NOTE | 2019-05-23 17:19 | HP ---
PRIMARY CARE PHYSICIAN: Mariela Jeffers. CHIEF COMPLAINT: Severe back pain. HISTORY OF PRESENT ILLNESS: The history of present illness is very limited as the patient is very drowsy, assuming after he was given medication for pain. But, Mr. Patton is a 44-year-old gentleman, who was recently admitted to our facility after he developed osteomyelitis in an area of a previous partial toe amputation. Actually, he had MRSA bacteremia as well as the wound grew MRSA as well. He was treated and a PICC line was placed and he was discharged on long-term IV antibiotics including daptomycin. The patient told me that he completed therapy; however, he told the emergency room nurse that he was not able to get to the outpatient center and complete his therapy. However, about a week ago, he started having severe lower back pain. He denies having any fevers or chills. No nausea, no vomiting, but due to the pain, he came to the ER for evaluation. A CT scan of the cervical, lumbar, and thoracic spine revealed that he has an area of inflammation around L3 and L4, which could represent diskitis and osteomyelitis with a posterior epidural abscess. He is being admitted for further treatment. There have been no signs of cord compromise. REVIEW OF SYSTEMS: The review of systems once again is very limited due to the patient's drowsiness and essentially unobtainable. PAST MEDICAL HISTORY: Obtained from conversation with the patient and includes diabetes mellitus type 2, recent osteomyelitis of the left toe, hypertension, obesity, and diabetic neuropathy. PAST SURGICAL HISTORY: He has had a left ray amputation. ALLERGIES: NO KNOWN DRUG ALLERGIES. SOCIAL HISTORY: He is a nonsmoker and nondrinker. He is single. He does not have any children. Code status is full code. FAMILY HISTORY: No known heritable diseases. CURRENT MEDICATIONS: These are taken from the emergency room records and includes; 1. Metformin 1000 mg twice daily. 2. Gabapentin 300 mg once daily. PHYSICAL EXAMINATION: GENERAL: He is alert and oriented. He appears to be in no acute distress. VITAL SIGNS: Blood pressure was 154/77, heart rate 106, respiratory rate of 18, and temperature is 98.1. HEENT: Pupils are equal, round, and reactive to light and accommodation. Extraocular muscles are intact. Sclerae anicteric. Throat, no erythema, no exudates. NECK: No adenopathy. No bruits. LUNGS: Clear to auscultation. There is no wheezing, no rales, no rhonchi. CARDIOVASCULAR: He has a normal S1 and S2. I did not appreciate an S3 or S4. No murmurs, clicks, or rubs. ABDOMEN: Obese. It is soft. It is nontender and nondistended. Positive for bowel sounds. No rebound. No guarding. EXTREMITIES: There is no clubbing or cyanosis. No edema. NEUROLOGIC: His muscle strength is 5/5 in both his upper and lower extremities and essentially nonfocal. SKIN AND INTEGUMENT: No skin changes. No rash. LAB RESULTS: White blood cell count 7.9, hemoglobin is 8, hematocrit is 25.6, and platelet count is 523. Sodium 130, potassium 3.7, chloride is 99, CO2 is 19, BUN of 19, creatinine 1.25, glucose is 203, alkaline phosphatase is 157, and albumin is 3.1. CT of the brain showed no evidence of any acute intracranial abnormalities. He had an MRI of the cervical and thoracic as well as lumbar spine of the C-spine. There was severe limitation in the exam due to motion. The thoracic spine is also limited, but there was no evidence of any significant cord disease and the MRI of the lumbar spine showed some evidence of consistent with L3-L4 diskitis and osteomyelitis with a posterior epidural abscess with some thecal narrowing and there was some phlegmonous changes of myositis within the anterior and posterior paraspinous soft tissues at the L3-L4 level. ASSESSMENT AND PLAN: 1. This is a 44-year-old gentleman, who presents to the emergency room with osteomyelitis of the lumbar spine. This is likely an extension from the previous infection of his toe. There is some history of a possible noncompliance. I suspect it is likely the same organism. He therefore will be admitted to the surgical floor and started on IV antibiotics. We will place him on IV vancomycin given that he had a methicillin-resistant Staphylococcus aureus, which was sensitive to vancomycin on his previous admission as well as Darren and consult Dr. Danielle for further recommendations. 2. Neurosurgery has already been consulted to assess stability of the lumbar spine. 3. Diabetes mellitus. We will hold on metformin for now in the event that he needs more imaging. Place him on a sliding scale, he may need a low-dose long-acting insulin. 4. He will be placed on deep venous thrombosis as well as gastrointestinal prophylaxis. Job ID: [id number]
[2019-05-23 18:14] VITALS: BMI 27.4
[2019-05-23] MEDS: HYDROcodone/Acetaminophen 5/325 mg Tablet PO PRN (21:01)
[2019-05-23] MEDS: Famotidine 20 MG TAB PO SCH (21:01)
--- NOTE | 2019-05-23 21:35 | CON ---
DATE OF CONSULTATION: HISTORY OF PRESENT ILLNESS: Mr. Patton is a 44-year-old male, who reported to the emergency department today for low back pain. While being worked up, the patient was found to have osteomyelitis and epidural abscess at L3-L4. The patient has a history of noncompliant medical treatment, had MRSA positive infection in his toe, which needs to be amputated, following which he got septic, was put on medications and a PICC line, antibiotics with Dr. Danielle back in March of this year. The patient was noncompliant with followup and did not get his full course of treatment. The patient returns now with PICC line still in right arm. When I entered the hospital room, the patient is actually resting comfortably. He is lying flat. He says he has no complaints but some soreness when he tries to move, especially in the right lower leg. Upper extremities are strong. He states that he had some constipation for a little while, then saw a chiropractor, which actually gave him some relief from the constipation. He states that when he got home, he was able to go multiple times yesterday. Pt. states that he has been having "spells" where he gets up and "feels weird, weak and very confused" His friend/sister in the room states that she whitnessed one of these "spells" the he "travis blanked and asked to be put back in bed, he thought he was on the floor". The patient denies any saddle anesthesia. No difficulty with urination. No paresthesias in the upper or lower extremities. The patient states that he has pain in the low back, but no radiating pain. The patient denies fever, chills, nausea, or vomiting. REVIEW OF SYSTEMS: A 10-point review of systems has been completed and is negative other than stated in the above HPI. PAST MEDICAL HISTORY: Hypertension, diabetes, diabetic neuropathy, and DVT. PAST SURGICAL HISTORY: Left first toe amputation. SOCIAL HISTORY: The patient denies alcohol or drug use. No smoking history. Lives at home alone. Does not have transportation or much help. MEDICATIONS: 1. Metformin. 2. Gabapentin. ALLERGIES: NO KNOWN DRUG ALLERGIES. PHYSICAL EXAMINATION: CONSTITUTIONAL: The patient is alert and oriented, is in no visible distress, slightly unkempt. HEENT: Head is normocephalic and atraumatic. Pupils are equal, round, and reactive to light. Extraocular movements are intact. Hearing is intact. Moist mucous membranes. RESPIRATIONS: Normal work of breathing on room air. Symmetric chest rise. BACK: No tenderness or step-off deformity. Mild muscular pain in bilateral lower extremities, worse on the right than the left. EXTREMITIES: Upper extremities; 5/5 strength in bilateral deltoids, biceps, triceps, and piece worker strength. Lower extremities; 5/5 strength in left hip flexion , knee flexion, knee extension, dorsiflexion, and plantar flexion. Right hip flexion supine, poor, 3-. Knee flexion, knee extension, dorsiflexion, plantar flexion, and EHL; 5/5 on the right side line. The patient has 4+/5 hip flexion due to discomfort. The patient states this is uncomfortable but not painful. NEURO: The patient is alert and oriented x3. Normal attention and concentration. Speech is spontaneous and fluent. Cranial nerves 2 through 12 are tested intact. There are no focal motor or sensory deficits noted. IMAGING DATA: Lumbar MRI, impression; L3-L4 diskitis, osteomyelitis with posterior epidural abscess narrowing the thecal sac with approximately 5 mm. There is phlegmonous changes and myelitis within the anterior and posterior paraspinal soft tissue at L3-L4 level with right anterior paravertebral phlegmon/abscess. Thoracic MRI, impression; limited exam of the thoracic spine, is without fracture, malalignment, listhesis, diskitis, or osteomyelitis. MRI cervical spine, impression; severely limited exam due to motion. No evidence of osteomyelitis. Lumbar spine x-rays; degenerative changes, most prominent at L5-S1 and erosion of anterior superior aspect of L4 vertebra, suspicious of osteomyelitis. ASSESSMENT AND PLAN: Mr. Patton is a 44-year-old male with past history of noncompliant antibiotic use and PICC line. He reports today with low back pain and weakness. He is found to have osteomyelitis, diskitis with epidural abscess at L3-L4. Given his pain level has significantly improved and weakness is only found in hip flexion on the right and there are no other neuro changes noted on exam, we recommend treatment with antibiotic use. At this time, we did not recommend surgery due to irritation of the psoas, can likely cause weakness due to pain in hip flexors. Recommend ID consult for treatment. If there are any further questions, please contact Neurosurgery. Job ID: [id number] MTDD
[2019-05-24] MEDS: HYDROcodone/Acetaminophen 10/325 mg Tablet PO PRN ×3 (03:34→14:08)
[2019-05-24 06:02] LABS: #Eosinphils 0.1 thou/uL (0.0-0.7); #Lymphocytes 1.5 thou/uL (1.20-3.40); #Monocytes 0.6 thou/uL (0.11-0.59); #Neutrophils 4.2 thou/uL (1.40-6.50); %Basophils 0.8 % (0.0-1.0); %Eosinophils 1.7 % (0.0-10.0); %Lymphocytes 23.7 % (21.0-51.0); %Monocytes 9.3 % (0.0-10.0); %Neutrophils 64.5 % (42.0-75.0); Hemoglobin 8.5 g/dL (14.0-18.0); Mean Corpuscular HGB CONC 32.1 g/dL (32.0-36.0); Mean Corpuscular Hemoglobin 25.8 pg (27.0-31.0); Mean Corpuscular Volume 80.5 fL (78.0-98.0); Mean Platelet Volume 5.8 fL (7.4-10.4); Platelet Count 471 thou/uL (130-400); RBC Distribution Width 17.1 % (11.5-14.5); Red Blood Cell (RBC) Count 3.29 mill/uL (4.70-6.10); White Blood Cell (WBC) Count 6.5 thou/uL (4.8-10.8)
[2019-05-24 06:20] LABS: Anion Gap 13 mmol/L (10-20); BUN (Urea Nitrogen) 18 mg/dL (8.9-20.6); Calc. Creatinine Clearance 128 mL/min (70-130); Calcium 9.1 mg/dL (7.8-10.44); Carbon Dioxide 24 mmol/L (22-29); Chloride 100 mmol/L (98-107); Estimated GFR-MDRD 77; Glucose 172 mg/dL (70-105); Potassium 3.9 mmol/L (3.5-5.1); Sodium 133 mmol/L (136-145)
[2019-05-24] MEDS: HumaLOG 300 UNITS/3 ML VIAL SC PRN ×3 (06:32→16:06)
[2019-05-24] MEDS: Lisinopril 10 MG TAB PO SCH (09:32)
[2019-05-24] MEDS: Famotidine 20 MG TAB PO SCH ×2 (09:32→20:27)
[2019-05-24] MEDS: Gabapentin 300 MG CAP PO SCH ×2 (09:32→20:27)
[2019-05-24] MEDS: Amlodipine 10 MG TAB PO SCH (09:32)
[2019-05-24] MEDS: Enoxaparin Sodium 40 MG/0.4 ML SYRINGE SC SCH (09:33)
[2019-05-24] MEDS: Insulin Glargine 10 UNITS in Pre-Filled Syringe 1 EACH SC SCH ×2 (10:30→20:27)
--- NOTE | 2019-05-24 14:59 | PDOC.PN ---
- Subjective Encounter Start Date: 05/24/19 Encounter Start Time: 14:57 Mr. Patton was seen today in follow-up of Lumbar spinal epidural abscess and disciitis. He notes some soreness in his back. He does not have any new complaints. - Objective Resuscitation Status - Order Detail: 05/23/19 15:03 Resuscitation Status Routine Resuscitation Status: FULL: Full Resuscitation MAR Reviewed: Yes Vital Signs & Weight: Vital Signs (12 hours) Temp Pulse Resp BP BP Pulse Ox 05/24/19 11:53 98.4 F 98 20 141/72 H 96 05/24/19 09:32 93 157/63 H 05/24/19 08:03 95 05/24/19 07:58 98.7 F 93 20 157/83 H 95 05/24/19 04:19 98.5 F 106 H 16 162/77 H 95 Weight Admit Weight 225 lb 8 oz Weight 225 lb 8 oz I&O: 05/23/19 05/24/19 05/25/19 06:59 06:59 06:59 Intake Total 1200 550 Output Total 500 Balance 700 550 Result Diagrams: 05/24/19 05:46 05/24/19 05:46 Additional Labs: Accuchecks 05/24/19 05/24/19 05/23/19 11:23 06:07 21:11 POC Glucose 200 H 183 H 177 H 05/23/19 18:21 POC Glucose 179 H Phys Exam - Physical Examination HEENT: PERRLA Respiratory: no wheezing, no rales, no rhonchi, clear to auscultation bilateral Cardiovascular: RRR, no significant murmur, no rub Gastrointestinal: soft, non-tender, no distention, positive bowel sounds Musculoskeletal: no edema, pulses present Dx/Plan (1) Discitis of lumbar region Code(s): M46.46 - DISCITIS, UNSPECIFIED, LUMBAR REGION Status: Acute (2) Diabetes mellitus type 2 in nonobese Code(s): E11.9 - TYPE 2 DIABETES MELLITUS WITHOUT COMPLICATIONS Status: Chronic (3) Hypertension Code(s): I10 - ESSENTIAL (PRIMARY) HYPERTENSION Status: Chronic Qualifiers: Hypertension type: essential hypertension Qualified Code(s): I10 - Essential (primary) hypertension - Plan * Disciitis and epidural abscess- continue Vancomycin * DM- blood glucose is stable * HTN - blood pressure is stable.
[2019-05-24] MEDS: HYDROcodone/Acetaminophen 5/325 mg Tablet PO PRN (20:36)
[2019-05-25 01:22] LABS: Vancomycin, Trough 20.5 ug/mL
[2019-05-25] MEDS: Vancomycin HCl 1.75 GM in Sodium Chloride 0.9% 500 ML IVPB SCH ×2 (01:47→14:17)
[2019-05-25] MEDS ORDERED: Vancomycin HCl 1.5 GM in Sodium Chloride 0.9% 250 ML 300 ML IVPB SCH (02:00)
[2019-05-25] MEDS: HumaLOG 300 UNITS/3 ML VIAL SC PRN ×3 (06:01→16:50)
[2019-05-25] MEDS: HYDROcodone/Acetaminophen 5/325 mg Tablet PO PRN ×2 (06:07→14:17)
[2019-05-25] MEDS: Insulin Glargine 10 UNITS in Pre-Filled Syringe 1 EACH SC SCH ×2 (08:43→21:27)
[2019-05-25] MEDS: Lisinopril 10 MG TAB PO SCH (08:47)
[2019-05-25] MEDS: Famotidine 20 MG TAB PO SCH ×2 (08:47→21:27)
[2019-05-25] MEDS: Gabapentin 300 MG CAP PO SCH ×2 (08:47→21:26)
[2019-05-25] MEDS: Enoxaparin Sodium 40 MG/0.4 ML SYRINGE SC SCH (08:47)
[2019-05-25] MEDS: Amlodipine 10 MG TAB PO SCH (08:47)
[2019-05-25] MEDS: Docusate 100 MG CAP PO SCH ×2 (08:47→21:26)
[2019-05-25] MEDS: HYDROcodone/Acetaminophen 10/325 mg Tablet PO PRN ×3 (12:32→21:26)
[2019-05-25] MEDS ORDERED: hydrALAZINE 20 MG/ML VIAL SLOW IVP PRN (14:52)
--- NOTE | 2019-05-25 14:54 | PDOC.PN ---
- Subjective Encounter Start Date: 05/25/19 Encounter Start Time: 14:53 Mr. Patton was seen today in follow-up of Spinal epidural abscess. He does not have any new complaints. He notes some continued soreness in his lower back. - Objective Resuscitation Status - Order Detail: 05/23/19 15:03 Resuscitation Status Routine Resuscitation Status: FULL: Full Resuscitation MAR Reviewed: Yes Vital Signs & Weight: Vital Signs (12 hours) Temp Pulse Resp BP BP BP Pulse Ox 05/25/19 11:22 98.6 F 104 H 18 176/83 H 96 05/25/19 08:47 93 156/83 H 05/25/19 08:03 98.6 F 93 16 156/83 H 95 05/25/19 04:00 99.6 F 92 18 166/99 H 95 Weight Admit Weight 225 lb 8 oz Weight 225 lb 8 oz I&O: 05/24/19 05/25/19 05/26/19 06:59 06:59 06:59 Intake Total 1200 2400 500 Output Total 500 1575 Balance 700 825 500 Result Diagrams: 05/24/19 05:46 05/24/19 05:46 Additional Labs: Accuchecks 05/25/19 05/25/19 05/24/19 11:32 05:32 19:53 POC Glucose 223 H 157 H 147 H 05/24/19 15:35 POC Glucose 156 H Phys Exam - Physical Examination HEENT: PERRLA Respiratory: no wheezing, no rales, no rhonchi, clear to auscultation bilateral Cardiovascular: RRR, no significant murmur, no rub Gastrointestinal: soft, non-tender, no distention, positive bowel sounds Musculoskeletal: no edema Dx/Plan (1) Discitis of lumbar region Code(s): M46.46 - DISCITIS, UNSPECIFIED, LUMBAR REGION Status: Acute (2) Diabetes mellitus type 2 in nonobese Code(s): E11.9 - TYPE 2 DIABETES MELLITUS WITHOUT COMPLICATIONS Status: Chronic (3) Hypertension Code(s): I10 - ESSENTIAL (PRIMARY) HYPERTENSION Status: Chronic Qualifiers: Hypertension type: essential hypertension Qualified Code(s): I10 - Essential (primary) hypertension - Plan * Disciitis and epidural abscess- continue Vancomycin- blood cultures are growing MRSA * HTN- blood pressure is a bit elevated- will continue Amlodipine and add PRN Hydralazine * DM- blood glucose is a bit elevated- continue the current regimen as well as a SSI.
[2019-05-25] MEDS: cloNIDine 0.1 MG TAB PO PRN (16:49)
[2019-05-26] MEDS: Vancomycin HCl 1.75 GM in Sodium Chloride 0.9% 500 ML IVPB SCH ×2 (02:08→15:14)
[2019-05-26] MEDS: HYDROcodone/Acetaminophen 10/325 mg Tablet PO PRN ×4 (05:10→21:20)
[2019-05-26] MEDS: HumaLOG 300 UNITS/3 ML VIAL SC PRN ×3 (05:14→20:50)
[2019-05-26] MEDS: Docusate 100 MG CAP PO SCH ×2 (09:25→20:49)
[2019-05-26] MEDS: Enoxaparin Sodium 40 MG/0.4 ML SYRINGE SC SCH (09:25)
[2019-05-26] MEDS: Insulin Glargine 10 UNITS in Pre-Filled Syringe 1 EACH SC SCH ×2 (09:25→20:50)
[2019-05-26] MEDS: Famotidine 20 MG TAB PO SCH ×2 (09:25→20:50)
[2019-05-26] MEDS: Amlodipine 10 MG TAB PO SCH (09:26)
[2019-05-26] MEDS: Gabapentin 300 MG CAP PO SCH ×2 (09:26→20:49)
[2019-05-26] MEDS: Lisinopril 10 MG TAB PO SCH (09:26)
--- NOTE | 2019-05-26 12:05 | CON ---
DATE OF CONSULTATION: 05/23/2019 REASON FOR CONSULTATION: Recrudescence of MRSA infection with involvement of the lumbar spine. HISTORY OF PRESENT ILLNESS: A 44-year-old, whom we have seen recently at beginning of March when he presented with a history of type 2 diabetes and left first toe inflammatory process, which led to amputation. The patient was discharged on oral Bactrim and rifampin for three weeks which he took faithfully. Despite of this , he still developed general malaise, cough and fever. He had inflammatory changes on the side of the left foot amputation and he had scattered areas of subsegmental infiltrates. MRSA bacteremia was identified and this was confirmed due to MRSA in the blood cultures. The patient improved with vancomycin and transitioned to daptomycin to be continued until May 11. The patient did not have insurance and still does not have insurance and was arranged to receive treatment downstairs in the Oncology area, but because of the fact that he lives far away from [place] and he did not have transportation ended up missing many treatment courses, eventually ceased to come to get the treatments unfortunately. Now, he developed progressively worsening low back pain and constipation, probable cauda equina and was brought into the hospital from the emergency room. No fever or chills. No headaches. No visual symptoms. No dyspnea or chest pain. No abdominal pain. He did have a lot of constipation and took some laxatives. He denies any difficulty with urination. He has good strength in lower extremities. PAST MEDICAL HISTORY: Type 2 diabetes, left toe osteomyelitis treated with oral medication, then recrudescence of inflammatory process with extension of the blood stream with methicillin-resistant Staphylococcus aureus bacteremia treated. Unfortunately, he could not complete the treatment in the outpatient setting due to transportation issues. PAST SURGICAL HISTORY: Left first ray amputation. ALLERGIES: NONE. SOCIAL HISTORY: Nonsmoker. Single. No children. FAMILY HISTORY: Noncontributory. CURRENT MEDICATIONS: P.r.n. medications enoxaparin, insulin, vancomycin. PHYSICAL EXAMINATION: VITAL SIGNS: Normal temperature, BP 140/74, pulse 103, respirations 16, and O2 saturation 94. GENERAL: In no distress. Very pleasant. EXTREMITIES: The left first toe, the amputation site is healed with no inflammatory changes. The patient has a PICC line in the right arm which is the old one, in the past many weeks due to his inability to travel to [place]. No lymphadenopathy. HEENT: Ocular movements conjugate. Pupils are equal. Oral cavity moist, still quite a few teeth in place, quit a bit of decay and gum disease. NECK: Supple. No jugular venous distention or carotid bruits. LUNGS: Symmetric. Clear breath sounds. HEART: S1 and S2 with regular rate. No murmurs. ABDOMEN: Soft, not distended. Marked tenderness in the lower back area. No bladder distention. No joint inflammatory activity. Pulses 1+ in dorsalis pedis. Strength in upper and lower extremities is 5/5. Cognitive function appears to be intact. LABORATORY DATA: White cell count 7.9, hemoglobin 8, MCV 79, platelets 523, 70% neutrophils. Sodium 130, creatinine 1.25 alkaline phosphatase 157, CRP 10.97, albumin 3.1. The last positive blood culture is from March 26 with MRSA. At this time, we have lumbar spine imaging study which demonstrates L3-L4 diskitis, posterior epidural abscess, narrowing of the thecal sac, phlegmonous changes, myositis within the anterior and posterior paraspinal soft tissues. ASSESSMENT: Type 2 diabetes, previous left toe osteomyelitis with amputation, recrudescence of inflammatory process with bacteremia MRSA, with inability to travel to [place] to obtain his treatment which was scheduled to be given until June 11. No recrudescence of infection at this time, lumbosacral spine infection may have some element of cauda equina as well. DISCUSSION: The patient will be restarted on vancomycin and keep the trough levels between 15 and 20 mcg/mL. Monitor his blood cultures eventually. Replace the PICC line with a new access. We will remove this line at this time. No other sites of involvement are not apparent at this time. It may be worthwhile to have Neurosurgery take a look at the scans and see if it could be managed just with antimicrobial therapy or if surgical intervention might be required. Probably, they will favor just continuation of conservative management. The patient states at this time that he has obtained transportation and should be able to come to the area for treatment. We will have to start all over again from day one, so the end date of therapy would be extended until July 05 approximately. Weekly labs including CBC, CRP, CMP, and CPK. Job ID: [id number] [facility]
[2019-05-26 14:40] LABS: Vancomycin, Trough 16.8 ug/mL
[2019-05-26] MEDS: cloNIDine 0.1 MG TAB PO PRN (17:19)
--- NOTE | 2019-05-26 17:38 | PDOC.PN ---
- Subjective Encounter Start Date: 05/26/19 Encounter Start Time: 17:34 Mr. Patton was seen today in follow-up disciitis in the lumbar spine. He notes some soreness in his back, but otherwise ok. - Objective Resuscitation Status - Order Detail: 05/23/19 15:03 Resuscitation Status Routine Resuscitation Status: FULL: Full Resuscitation MAR Reviewed: Yes Vital Signs & Weight: Vital Signs (12 hours) Temp Pulse Resp BP BP Pulse Ox 05/26/19 17:19 179/84 H 05/26/19 15:44 98.4 F 93 18 175/89 H 94 L 05/26/19 11:02 97.6 F 92 18 181/90 H 93 L 05/26/19 09:26 89 157/80 H 05/26/19 07:39 98.2 F 89 18 157/80 H 95 Weight Admit Weight 225 lb 8 oz Weight 225 lb 8 oz I&O: 05/25/19 05/26/19 05/27/19 06:59 06:59 06:59 Intake Total 2400 2720 Output Total 1575 2150 Balance 825 570 Result Diagrams: 05/24/19 05:46 05/24/19 05:46 Additional Labs: Accuchecks 05/26/19 05/26/19 05/26/19 15:51 11:02 05:15 POC Glucose 144 H 213 H 238 H 05/25/19 20:23 POC Glucose 200 H Phys Exam - Physical Examination HEENT: PERRLA Respiratory: no wheezing, no rales, no rhonchi, clear to auscultation bilateral Cardiovascular: RRR, no significant murmur, no rub Gastrointestinal: soft, non-tender, no distention, positive bowel sounds Musculoskeletal: no edema Dx/Plan (1) Discitis of lumbar region Code(s): M46.46 - DISCITIS, UNSPECIFIED, LUMBAR REGION Status: Acute (2) Diabetes mellitus type 2 in nonobese Code(s): E11.9 - TYPE 2 DIABETES MELLITUS WITHOUT COMPLICATIONS Status: Chronic (3) Hypertension Code(s): I10 - ESSENTIAL (PRIMARY) HYPERTENSION Status: Chronic Qualifiers: Hypertension type: essential hypertension Qualified Code(s): I10 - Essential (primary) hypertension - Plan * Lumbar Spine disciitis- continue as per Dr. Danielle recommendations- will continue IV Vancomycin for now. * HTN- blood pressure is elevated- will add Carvediolol * DM- blood glucose is a bit elevated- will continue Lantus and SSI, and may need to titrate the dose if it continues to be elevated * He will need PICC line placement for termite treater helper antibiotics, and begin discharge planning
--- NOTE | 2019-05-26 20:10 | PRG ---
DATE OF SERVICE: 05/26/2019 SUBJECTIVE: Still with quite a bit of pain in the spine. It is difficult for him to raise the chest from the bed to turn side to left vice versa. No dyspnea. No abdominal pain. He is constipated, but is able to void without difficulty. OBJECTIVE: VITAL SIGNS: His temperature has been normal and blood pressure 170/84, pulse 83, respirations 18, O2 saturation 94. GENERAL: He is very pleasant, in no distress. HEENT: Ocular movements conjugate. LUNGS: Clear to auscultation and percussion. HEART: S1 and S2. Regular rate and rhythm without murmurs. ABDOMEN: Soft, not distended or tender. : No bladder distention. EXTREMITIES: He is able to move all extremities with equal strength. LABORATORY DATA: The latest white cell count 6.5, hemoglobin 8.5, MCV 80, platelets 471. Sodium 133, creatinine 1.04, and microbiology with MRSA in one set out of two blood cultures. ASSESSMENT AND DISCUSSION: Type 2 diabetes, left toe osteomyelitis with amputation, then recrudescence of inflammatory process with bacteremia due to methicillin-resistant Staphylococcus aureus, inability to complete his treatment due to transportation difficulties and now recrudescence of infection with evidence of lumbosacral spine infection. Cauda equina is of concern. We will continue vancomycin, and Neurosurgery consult has recommended continuation of conservative management. Job ID: [id number]
[2019-05-26] MEDS: Milk Of Magnesia 30 ML UDCUP PO PRN (21:21)
[2019-05-27] MEDS: Vancomycin HCl 1.75 GM in Sodium Chloride 0.9% 500 ML IVPB SCH ×2 (01:10→15:12)
[2019-05-27] MEDS: HYDROcodone/Acetaminophen 10/325 mg Tablet PO PRN ×4 (03:25→20:46)
[2019-05-27] MEDS: HumaLOG 300 UNITS/3 ML VIAL SC PRN ×4 (07:33→20:46)
[2019-05-27] MEDS: Milk Of Magnesia 30 ML UDCUP PO PRN (08:01)
[2019-05-27] MEDS: Enoxaparin Sodium 40 MG/0.4 ML SYRINGE SC SCH (08:01)
[2019-05-27] MEDS: Famotidine 20 MG TAB PO SCH ×2 (08:02→20:43)
[2019-05-27] MEDS: Amlodipine 10 MG TAB PO SCH (08:02)
[2019-05-27] MEDS: Docusate 100 MG CAP PO SCH ×2 (08:02→20:43)
[2019-05-27] MEDS: Gabapentin 300 MG CAP PO SCH ×2 (08:02→20:43)
[2019-05-27] MEDS: Lisinopril 10 MG TAB PO SCH (08:04)
[2019-05-27] MEDS: Carvedilol 6.25 MG TAB PO SCH ×2 (08:04→16:45)
--- NOTE | 2019-05-27 09:31 | SPC ---
SPC CVP LINE PICC INITAL >5 History: Long-term IV access Comparison: None Findings: Patient brought to the special suite. All questions were answered. Informed consent was obt ained. Timeout performed. Patient's right arm was prepped and draped in normal sterile fashion. Using ultrasound guidance the r ight basilic vein was accessed. After adequate local anesthesia, over a wire and through a peel-away sheath a 43.5 cm PICC was placed with tip at the inferior SVC. This was done using fluorosc opic guidance. Patient tolerated the procedure well without complication. Impression: Technically successful fluoroscopic and ultrasound guided PICC line placement. Fluoroscopy time: 0.3 minutes Dose area product: 4533 mGy cm squared.
[2019-05-27] MEDS: Insulin Glargine 10 UNITS in Pre-Filled Syringe 1 EACH SC SCH ×2 (09:46→20:47)
--- NOTE | 2019-05-27 11:37 | PDOC.PN ---
- Subjective Encounter Start Date: 05/27/19 Encounter Start Time: 10:15 Subjective: c/o back pain and unable to mobilize easily -: has ambulated to bathroom and back with pain -: no sob - Objective Resuscitation Status - Order Detail: 05/23/19 15:03 Resuscitation Status Routine Resuscitation Status: FULL: Full Resuscitation MAR Reviewed: Yes Vital Signs & Weight: Vital Signs (12 hours) Temp Pulse Resp BP BP BP Pulse Ox 05/27/19 08:04 159/81 H 05/27/19 08:02 91 159/81 H 05/27/19 07:00 98.6 F 92 16 172/77 H 93 L 05/27/19 03:33 98.9 F 94 16 180/77 H 94 L Weight Admit Weight 225 lb 8 oz Weight 225 lb 8 oz I&O: 05/26/19 05/27/19 05/28/19 06:59 06:59 06:59 Intake Total 2720 3050 Output Total 2150 3275 Balance 570 -225 Result Diagrams: 05/24/19 05:46 05/24/19 05:46 Additional Labs: Accuchecks 05/27/19 05/27/19 05/26/19 11:04 06:02 19:50 POC Glucose 235 H 213 H 206 H 05/26/19 05/26/19 15:51 11:02 POC Glucose 144 H 213 H Phys Exam - Physical Examination HEENT: PERRLA, moist MMs Neck: no JVD, supple Respiratory: no wheezing, no rales Cardiovascular: RRR, no significant murmur Gastrointestinal: soft, non-tender, positive bowel sounds Musculoskeletal: no edema, pulses present Neurological: non-focal, moves all 4 limbs Psychiatric: normal affect, A&O x 3 Dx/Plan (1) Discitis of lumbar region Code(s): M46.46 - DISCITIS, UNSPECIFIED, LUMBAR REGION Status: Acute (2) MRSA bacteremia Code(s): R78.81 - BACTEREMIA Status: Acute (3) Chronic anemia Code(s): D64.9 - ANEMIA, UNSPECIFIED Status: Chronic (4) Diabetes mellitus type 2 in nonobese Code(s): E11.9 - TYPE 2 DIABETES MELLITUS WITHOUT COMPLICATIONS Status: Chronic (5) Hypertension Code(s): I10 - ESSENTIAL (PRIMARY) HYPERTENSION Status: Chronic Qualifiers: Hypertension type: essential hypertension Qualified Code(s): I10 - Essential (primary) hypertension - Plan is on vanc, recieved picc line today -: continue lantus, norvasc, coreg, lisinopril -: on norco, neurontin, will add lidocaine patch -: hemostable -: counselled to ambulate as tolerated * . Review of Systems - Medications/Allergies Allergies/Adverse Reactions: Allergies Allergy/AdvReac Type Severity Reaction Status Date / Time No Known Drug Allergies Allergy Verified 03/26/19 21:36 Medications: Current Medications Acetaminophen (Tylenol) 650 mg PO Q4H PRN PRN Reason: Headache/Fever/Mild Pain (1-3) Hydrocodone Bitart/Acetaminophen (Jarales 10/325) 1 tab PO Q4H PRN PRN Reason: Moderate Pain (4-6) Last Admin: 05/27/19 07:32 Dose: 1 tab Hydrocodone Bitart/Acetaminophen (Jarales 5/325) 1 tab PO Q4H PRN PRN Reason: Moderate Pain (4-6) Last Admin: 05/25/19 14:17 Dose: 1 tab Amlodipine Besylate (Norvasc) 10 mg PO DAILY [facility] Last Admin: 05/27/19 08:02 Dose: 10 mg Carvedilol (Coreg) 6.25 mg PO BID[facility] Last Admin: 05/27/19 08:04 Dose: 6.25 mg Clonidine (Catapres) 0.1 mg PO Q4H PRN PRN Reason: SBP Greater Than 170 Last Admin: 05/26/19 17:19 Dose: 0.1 mg Dextrose/Water (Dextrose 50%) 25 gm SLOW IVP PRN PRN PRN Reason: Hypoglycemia Docusate Sodium (Colace) 100 mg PO BID [facility] Last Admin: 05/27/19 08:02 Dose: 100 mg Enoxaparin Sodium (Lovenox) 40 mg SC 0900 [facility] Last Admin: 05/27/19 08:01 Dose: 40 mg Famotidine (Pepcid) 20 mg PO BID [facility] Last Admin: 05/27/19 08:02 Dose: 20 mg Gabapentin (Neurontin) 300 mg PO BID [facility] Last Admin: 05/27/19 08:02 Dose: 300 mg Glucagon (Glucagon) 1 mg IM PRN PRN PRN Reason: Hypoglycemia Hydralazine HCl (Apresoline) 10 mg SLOW IVP Q4H PRN PRN Reason: SBP > 180 and HR < 70 Dextrose/Water (D5w) 1,000 mls @ 0 mls/hr IV .Q0M PRN PRN Reason: Hypoglycemia Insulin Glargine 10 units/ (Miscellaneous Medication) 0.1 mls @ 0 mls/hr SC HS [facility] Last Admin: 05/26/19 20:50 Dose: 0.1 mls Insulin Glargine 10 units/ (Miscellaneous Medication) 0.1 mls @ 0 mls/hr SC QAM [facility] Last Admin: 05/27/19 09:46 Dose: 0.1 mls Vancomycin HCl 1.75 gm/ Sodium (Chloride) 500 mls @ 250 mls/hr IVPB 0200,1400 [facility] Last Admin: 05/27/19 01:10 Dose: 500 mls Insulin Human Lispro (Humalog) 0 units SC .MODERATE SLIDING SC PRN PRN Reason: Moderate Correctional Scale Last Admin: 05/27/19 07:33 Dose: 4 unit Insulin Human Lispro (Humalog) 0 units SC .BEDTIME SLIDING SC PRN PRN Reason: Bedtime Correctional Scale Last Admin: 05/26/19 20:50 Dose: 2 unit Lisinopril (Zestril) 10 mg PO DAILY [facility] Last Admin: 05/27/19 08:04 Dose: 10 mg Magnesium Hydroxide (Milk Of Magnesium) 30 ml PO DAILYPRN PRN PRN Reason: Constipation Last Admin: 05/27/19 08:01 Dose: 30 ml Miscellaneous Medication (Pharmacy To Dose) 0 each IVPB .VANCOMYCIN PRN PRN Reason: LABS Ondansetron HCl (Zofran Odt) 4 mg PO Q6H PRN PRN Reason: Nausea/Vomiting Sodium Chloride (Flush - Normal Saline) 10 ml IVF Q12HR [facility] Last Admin: 05/27/19 09:47 Dose: Not Given Sodium Chloride (Flush - Normal Saline) 10 ml IVF PRN PRN PRN Reason: Saline Flush
[2019-05-27 14:34] LABS: Vancomycin, Trough 18.2 ug/mL
[2019-05-28] MEDS: Vancomycin HCl 1.75 GM in Sodium Chloride 0.9% 500 ML IVPB SCH ×2 (02:46→14:41)
[2019-05-28] MEDS: HYDROcodone/Acetaminophen 10/325 mg Tablet PO PRN ×4 (02:48→20:23)
[2019-05-28] MEDS: HumaLOG 300 UNITS/3 ML VIAL SC PRN ×3 (06:26→16:48)
[2019-05-28 07:58] LABS: #Basophils 0.1 thou/uL (0.0-0.2); #Eosinphils 0.2 thou/uL (0.0-0.7); #Lymphocytes 1.4 thou/uL (1.20-3.40); #Monocytes 0.6 thou/uL (0.11-0.59); #Neutrophils 4.5 thou/uL (1.40-6.50); %Basophils 1.1 % (0.0-1.0); %Eosinophils 3.6 % (0.0-10.0); %Lymphocytes 20.1 % (21.0-51.0); %Neutrophils 66.3 % (42.0-75.0); Hemoglobin 7.9 g/dL (14.0-18.0); Mean Corpuscular HGB CONC 30.9 g/dL (32.0-36.0); Mean Platelet Volume 6.1 fL (7.4-10.4); Platelet Count 394 thou/uL (130-400); RBC Distribution Width 16.8 % (11.5-14.5); Red Blood Cell (RBC) Count 3.16 mill/uL (4.70-6.10); White Blood Cell (WBC) Count 6.7 thou/uL (4.8-10.8)
[2019-05-28 08:23] LABS: ALT (SGPT) 20 U/L (8-55); AST (SGOT) 14 U/L (5-34); Albumin 2.8 g/dL (3.5-5.0); Alkaline Phosphatase 151 U/L (40-150); Anion Gap 13 mmol/L (10-20); BUN (Urea Nitrogen) 15 mg/dL (8.9-20.6); Bilirubin, Total 0.2 mg/dL (0.2-1.2); CRP (Inflammatory) 7.26 mg/dL (= or < 0.5); Calc. Creatinine Clearance 142 mL/min (70-130); Calcium 9.3 mg/dL (7.8-10.44); Carbon Dioxide 26 mmol/L (22-29); Chloride 99 mmol/L (98-107); Estimated GFR-MDRD 86; Globulin 4.7 g/dL (2.4-3.5); Glucose 257 mg/dL (70-105); Potassium 4.1 mmol/L (3.5-5.1); Protein, Total 7.5 g/dL (6.0-8.3); Sodium 134 mmol/L (136-145)
[2019-05-28] MEDS: Gabapentin 300 MG CAP PO SCH ×2 (08:38→20:23)
[2019-05-28] MEDS: metFORMIN 500 MG TAB PO SCH ×2 (08:39→16:48)
[2019-05-28] MEDS: Docusate 100 MG CAP PO SCH ×2 (08:39→20:23)
[2019-05-28] MEDS: Amlodipine 10 MG TAB PO SCH (08:39)
[2019-05-28] MEDS: Famotidine 20 MG TAB PO SCH ×2 (08:39→20:23)
[2019-05-28] MEDS: Lisinopril 10 MG TAB PO SCH (08:39)
[2019-05-28] MEDS: Carvedilol 6.25 MG TAB PO SCH ×2 (08:40→16:48)
[2019-05-28] MEDS: Enoxaparin Sodium 40 MG/0.4 ML SYRINGE SC SCH (08:40)
--- NOTE | 2019-05-28 13:19 | PDOC.PN ---
- Subjective Encounter Start Date: 05/28/19 Encounter Start Time: 09:00 Subjective: is ambulating in room, says he has a ride now to get iv antibiotics -: wants to go home and not have placement -: lives with his parents 60[place] here - Objective Resuscitation Status - Order Detail: 05/23/19 15:03 Resuscitation Status Routine Resuscitation Status: FULL: Full Resuscitation MAR Reviewed: Yes Vital Signs & Weight: Vital Signs (12 hours) Temp Pulse Resp BP BP BP Pulse Ox 05/28/19 11:03 97.8 F 86 16 168/82 H 92 L 05/28/19 08:40 120/56 L 05/28/19 08:39 120/56 L 05/28/19 07:45 95 05/28/19 07:00 98.5 F 90 16 120/56 L 95 05/28/19 03:40 97.8 F 88 16 171/74 H 91 L Weight Admit Weight 225 lb 8 oz Weight 225 lb 8 oz I&O: 05/27/19 05/28/19 05/29/19 06:59 06:59 06:59 Intake Total 3050 3000 1760 Output Total 3275 2000 1225 Balance -225 1000 535 Result Diagrams: 05/28/19 07:52 05/28/19 07:52 Additional Labs: Accuchecks 05/28/19 05/28/19 05/27/19 10:44 06:00 20:29 POC Glucose 246 H 321 H 237 H 05/27/19 15:23 POC Glucose 186 H Phys Exam - Physical Examination HEENT: PERRLA, moist MMs Neck: no nodes, no JVD Respiratory: no wheezing, no rales Cardiovascular: RRR, no significant murmur Gastrointestinal: soft, non-tender, positive bowel sounds Musculoskeletal: no edema, pulses present Neurological: non-focal, moves all 4 limbs Psychiatric: normal affect, A&O x 3 Dx/Plan (1) Discitis of lumbar region Code(s): M46.46 - DISCITIS, UNSPECIFIED, LUMBAR REGION Status: Acute (2) MRSA bacteremia Code(s): R78.81 - BACTEREMIA Status: Acute (3) Chronic anemia Code(s): D64.9 - ANEMIA, UNSPECIFIED Status: Chronic (4) Diabetes mellitus type 2 in nonobese Code(s): E11.9 - TYPE 2 DIABETES MELLITUS WITHOUT COMPLICATIONS Status: Chronic (5) Hypertension Code(s): I10 - ESSENTIAL (PRIMARY) HYPERTENSION Status: Chronic Qualifiers: Hypertension type: essential hypertension Qualified Code(s): I10 - Essential (primary) hypertension - Plan d/w , is good for daptomycin daily at the infusion center which was -: -previously approved. is looking into it for dc plan -: is on metformin and glipizide for dm (has no insurance and wants off insuli -: continue iron, folic acid, Vit B12, coreg, norvasc, lisinopril, neurontin -: hemo/neurostable. Wants stool softeners, has hard stools * . Review of Systems - Medications/Allergies Allergies/Adverse Reactions: Allergies Allergy/AdvReac Type Severity Reaction Status Date / Time No Known Drug Allergies Allergy Verified 03/26/19 21:36 Medications: Current Medications Acetaminophen (Tylenol) 650 mg PO Q4H PRN PRN Reason: Headache/Fever/Mild Pain (1-3) Hydrocodone Bitart/Acetaminophen ([place] 10/325) 1 tab PO Q4H PRN PRN Reason: Moderate Pain (4-6) Last Admin: 05/28/19 08:51 Dose: 1 tab Hydrocodone Bitart/Acetaminophen ([place] 5/325) 1 tab PO Q4H PRN PRN Reason: Moderate Pain (4-6) Last Admin: 05/25/19 14:17 Dose: 1 tab Amlodipine Besylate (Norvasc) 10 mg PO DAILY [facility] Last Admin: 05/28/19 08:39 Dose: 10 mg Carvedilol (Coreg) 6.25 mg PO BID-[facility] Last Admin: 05/28/19 08:40 Dose: 6.25 mg Clonidine (Catapres) 0.1 mg PO Q4H PRN PRN Reason: SBP Greater Than 170 Last Admin: 05/26/19 17:19 Dose: 0.1 mg Cyanocobalamin (Vitamin B-12) 1,000 mcg PO DAILY [facility] Dextrose/Water (Dextrose 50%) 25 gm SLOW IVP PRN PRN PRN Reason: Hypoglycemia Docusate Sodium (Colace) 100 mg PO BID [facility] Last Admin: 05/28/19 08:39 Dose: 100 mg Enoxaparin Sodium (Lovenox) 40 mg SC 0900 [facility] Last Admin: 05/28/19 08:40 Dose: 40 mg Famotidine (Pepcid) 20 mg PO BID [facility] Last Admin: 05/28/19 08:39 Dose: 20 mg Ferrous Sulfate (Feosol) 325 mg PO BID-[facility] Folic Acid (Folvite) 1 mg PO DAILY [facility] Gabapentin (Neurontin) 300 mg PO BID [facility] Last Admin: 05/28/19 08:38 Dose: 300 mg Glipizide (Glucotrol) 5 [facility] Glucagon (Glucagon) 1 mg IM PRN PRN PRN Reason: Hypoglycemia Hydralazine HCl (Apresoline) 10 mg SLOW IVP Q4H PRN PRN Reason: SBP > 180 and HR < 70 Dextrose/Water (D5w) 1,000 mls @ 0 mls/hr IV .Q0M PRN PRN Reason: Hypoglycemia Vancomycin HCl 1.75 gm/ Sodium (Chloride) 500 mls @ 250 mls/hr IVPB 0200,1400 [facility] Last Admin: 05/28/19 02:46 Dose: 500 mls Insulin Human Lispro (Humalog) 0 units SC .MODERATE SLIDING SC PRN PRN Reason: Moderate Correctional Scale Last Admin: 05/28/19 12:35 Dose: 4 unit Insulin Human Lispro (Humalog) 0 units SC .BEDTIME SLIDING SC PRN PRN Reason: Bedtime Correctional Scale Last Admin: 05/27/19 20:46 Dose: 2 unit Lisinopril (Zestril) 10 mg PO DAILY [facility] Last Admin: 05/28/19 08:39 Dose: 10 mg Magnesium Hydroxide (Milk Of Magnesium) 30 ml PO DAILYPRN PRN PRN Reason: Constipation Last Admin: 05/27/19 08:01 Dose: 30 ml Metformin [facility] ([facility]) [facility] Last Admin: 05/28/19 08:39 Dose: 1,000 mg Miscellaneous Medication (Pharmacy To Dose) 0 each IVPB .VANCOMYCIN PRN PRN Reason: LABS Ondansetron HCl (Zofran Odt) 4 mg PO Q6H PRN PRN Reason: Nausea/Vomiting Sodium Chloride (Flush - Normal Saline) 10 ml IVF Q12HR [facility] Last Admin: 05/28/19 08:40 Dose: 10 ml Sodium Chloride (Flush - Normal Saline) 10 ml IVF PRN PRN PRN Reason: Saline Flush
[2019-05-28] MEDS ORDERED: Bisacodyl 10 MG SUPP PR PRN (13:22)
[2019-05-28] MEDS ORDERED: glipiZIDE 5 MG TAB PO SCH (16:30)
[2019-05-28] MEDS: Ferrous Sulfate 325 MG TAB PO SCH (16:48)
[2019-05-29] MEDS: Vancomycin HCl 1.75 GM in Sodium Chloride 0.9% 500 ML IVPB SCH ×2 (01:42→13:53)
[2019-05-29] MEDS: HYDROcodone/Acetaminophen 10/325 mg Tablet PO PRN ×3 (06:45→16:29)
[2019-05-29] MEDS: Cyanocobalamin (Vitamin B-12) 1,000 MCG TAB PO SCH (08:46)
[2019-05-29] MEDS: Gabapentin 300 MG CAP PO SCH ×2 (08:46→20:26)
[2019-05-29] MEDS: glipiZIDE 5 MG TAB PO SCH (08:46)
[2019-05-29] MEDS: Famotidine 20 MG TAB PO SCH ×2 (08:47→20:26)
[2019-05-29] MEDS: Lisinopril 10 MG TAB PO SCH (08:47)
[2019-05-29] MEDS: Amlodipine 10 MG TAB PO SCH (08:47)
[2019-05-29] MEDS: Folic Acid 1 MG TAB PO SCH (08:47)
[2019-05-29] MEDS: Ferrous Sulfate 325 MG TAB PO SCH ×2 (08:47→16:28)
[2019-05-29] MEDS: metFORMIN 500 MG TAB PO SCH ×2 (08:47→16:28)
[2019-05-29] MEDS: Enoxaparin Sodium 40 MG/0.4 ML SYRINGE SC SCH (08:48)
[2019-05-29] MEDS: Polyethylene Glycol 3350 17 GM Packet PO SCH (08:48)
[2019-05-29] MEDS: Carvedilol 6.25 MG TAB PO SCH ×2 (08:48→16:28)
[2019-05-29] MEDS: Docusate 100 MG CAP PO SCH ×2 (08:48→20:26)
[2019-05-29] MEDS: HumaLOG 300 UNITS/3 ML VIAL SC PRN ×2 (11:57→16:29)
[2019-05-29 13:27] LABS: Vancomycin, Trough 19.9 ug/mL
--- NOTE | 2019-05-29 14:31 | PDOC.PN ---
- Subjective Encounter Start Date: 05/29/19 Encounter Start Time: 09:00 Subjective: back pain and right thigh pain is better -: no sob -: is amb in room - Objective Resuscitation Status - Order Detail: 05/23/19 15:03 Resuscitation Status Routine Resuscitation Status: FULL: Full Resuscitation MAR Reviewed: Yes Vital Signs & Weight: Vital Signs (12 hours) Temp Pulse Resp BP BP BP Pulse Ox 05/29/19 11:13 98 F 83 16 166/83 H 95 05/29/19 08:48 170/88 H 05/29/19 08:47 80 170/88 H 05/29/19 08:40 94 L 05/29/19 08:05 98 F 80 16 170/88 H 94 L 05/29/19 04:00 98.2 F 77 16 154/84 H 93 L Weight Admit Weight 225 lb 8 oz Weight 225 lb 8 oz I&O: 05/28/19 05/29/19 05/30/19 06:59 06:59 06:59 Intake Total 3000 2960 650 Output Total 2000 3300 850 Balance 1000 -340 -200 Result Diagrams: 05/28/19 07:52 05/28/19 07:52 Additional Labs: Accuchecks 05/29/19 05/29/19 05/28/19 11:18 05:15 19:52 POC Glucose 194 H 131 H 109 05/28/19 16:00 POC Glucose 240 H Phys Exam - Physical Examination HEENT: PERRLA, moist MMs Neck: no JVD, supple Respiratory: no wheezing, no rales Cardiovascular: RRR, no significant murmur Gastrointestinal: soft, non-tender, positive bowel sounds Musculoskeletal: no edema, pulses present Neurological: non-focal, moves all 4 limbs Psychiatric: normal affect, A&O x 3 Dx/Plan (1) Discitis of lumbar region Code(s): M46.46 - DISCITIS, UNSPECIFIED, LUMBAR REGION Status: Acute (2) MRSA bacteremia Code(s): R78.81 - BACTEREMIA Status: Acute (3) Chronic anemia Code(s): D64.9 - ANEMIA, UNSPECIFIED Status: Chronic (4) Diabetes mellitus type 2 in nonobese Code(s): E11.9 - TYPE 2 DIABETES MELLITUS WITHOUT COMPLICATIONS Status: Chronic (5) Hypertension Code(s): I10 - ESSENTIAL (PRIMARY) HYPERTENSION Status: Chronic Qualifiers: Hypertension type: essential hypertension Qualified Code(s): I10 - Essential (primary) hypertension - Plan hemostable -: is on vancomycin, daptomycin for outpt use -: continue coreg, lisinopril, metformin, glipizide, neurontin -: counselled to eat same portions for better glycemic control -: awaiting outpt antibiotic arrangement for dc, is medically stable for dc * . Review of Systems - Medications/Allergies Allergies/Adverse Reactions: Allergies Allergy/AdvReac Type Severity Reaction Status Date / Time No Known Drug Allergies Allergy Verified 03/26/19 21:36 Medications: Current Medications Acetaminophen (Tylenol) 650 mg PO Q4H PRN PRN Reason: Headache/Fever/Mild Pain (1-3) Hydrocodone Bitart/Acetaminophen ([place] 10/325) 1 tab PO Q4H PRN PRN Reason: Moderate Pain (4-6) Last Admin: 05/29/19 11:55 Dose: 1 tab Hydrocodone Bitart/Acetaminophen ([place] 5/325) 1 tab PO Q4H PRN PRN Reason: Moderate Pain (4-6) Last Admin: 05/25/19 14:17 Dose: 1 tab Amlodipine Besylate (Norvasc) 10 mg PO DAILY [facility] Last Admin: 05/29/19 08:47 Dose: 10 mg Bisacodyl (Dulcolax) 10 mg SC Q8H PRN PRN Reason: Constipation Carvedilol (Coreg) 6.25 mg PO BID-[facility] Last Admin: 05/29/19 08:48 Dose: 6.25 mg Clonidine (Catapres) 0.1 mg PO Q4H PRN PRN Reason: SBP Greater Than 170 Last Admin: 05/26/19 17:19 Dose: 0.1 mg Cyanocobalamin (Vitamin B-12) 1,000 mcg PO DAILY [facility] Last Admin: 05/29/19 08:46 Dose: 1,000 mcg Dextrose/Water (Dextrose 50%) 25 gm SLOW IVP PRN PRN PRN Reason: Hypoglycemia Docusate Sodium (Colace) 100 mg PO BID [facility] Last Admin: 05/29/19 08:48 Dose: Not Given Enoxaparin Sodium (Lovenox) 40 mg SC 0900 [facility] Last Admin: 05/29/19 08:48 Dose: 40 mg Famotidine (Pepcid) 20 mg PO BID [facility] Last Admin: 05/29/19 08:47 Dose: 20 mg [facility] Last Admin: 05/29/19 08:47 Dose: 325 mg Folic Acid (Folvite) 1 mg PO DAILY [facility] Last Admin: 05/29/19 08:47 Dose: 1 mg Gabapentin (Neurontin) 300 mg PO BID [facility] Last Admin: 05/29/19 08:46 Dose: 300 mg Glipizide (Glucotrol) 5 mg PO DAILY [facility] Last Admin: 05/29/19 08:46 Dose: 5 mg Glucagon (Glucagon) 1 mg IM PRN PRN PRN Reason: Hypoglycemia Hydralazine HCl (Apresoline) 10 mg SLOW IVP Q4H PRN PRN Reason: SBP > 180 and HR < 70 Dextrose/Water (D5w) 1,000 mls @ 0 mls/hr IV .Q0M PRN PRN Reason: Hypoglycemia Vancomycin HCl 1.75 gm/ Sodium (Chloride) 500 mls @ 250 mls/hr IVPB 0200,1400 [facility] Last Admin: 05/29/19 13:53 Dose: 500 mls Insulin Human Lispro (Humalog) 0 units SC .MODERATE SLIDING SC PRN PRN Reason: Moderate Correctional Scale Last Admin: 05/29/19 11:57 Dose: 2 unit Insulin Human Lispro (Humalog) 0 units SC .BEDTIME SLIDING SC PRN PRN Reason: Bedtime Correctional Scale Last Admin: 05/27/19 20:46 Dose: 2 unit Lisinopril (Zestril) 10 mg PO DAILY [facility] Last Admin: 05/29/19 08:47 Dose: 10 mg Magnesium Hydroxide (Milk Of Magnesium) 30 ml PO DAILYPRN PRN PRN Reason: Constipation Last Admin: 05/27/19 08:01 Dose: 30 ml Metformin [facility] ([facility]) [facility] Last Admin: 05/29/19 08:47 Dose: 1,000 mg Miscellaneous Medication (Pharmacy To Dose) 0 each IVPB .VANCOMYCIN PRN PRN Reason: LABS Ondansetron HCl (Zofran Odt) 4 mg PO Q6H PRN PRN Reason: Nausea/Vomiting Polyethylene Glycol (Miralax) 17 gm PO DAILY [facility] Last Admin: 05/29/19 08:48 Dose: Not Given Sodium Chloride (Flush - Normal Saline) 10 ml IVF Q12HR [facility] Last Admin: 05/29/19 08:49 Dose: 10 ml Sodium Chloride (Flush - Normal Saline) 10 ml IVF PRN PRN PRN Reason: Saline Flush
[2019-05-30] MEDS: HYDROcodone/Acetaminophen 10/325 mg Tablet PO PRN ×4 (01:16→17:25)
[2019-05-30] MEDS: Vancomycin HCl 1.75 GM in Sodium Chloride 0.9% 500 ML IVPB SCH (01:17)
[2019-05-30] MEDS: HumaLOG 300 UNITS/3 ML VIAL SC PRN (06:08)
[2019-05-30] MEDS: Enoxaparin Sodium 40 MG/0.4 ML SYRINGE SC SCH (08:22)
[2019-05-30] MEDS: glipiZIDE 5 MG TAB PO SCH (08:22)
[2019-05-30] MEDS: metFORMIN 500 MG TAB PO SCH ×2 (08:22→17:23)
[2019-05-30] MEDS: Gabapentin 300 MG CAP PO SCH (08:22)
[2019-05-30] MEDS: Famotidine 20 MG TAB PO SCH (08:22)
[2019-05-30] MEDS: Amlodipine 10 MG TAB PO SCH (08:22)
[2019-05-30] MEDS: Lisinopril 10 MG TAB PO SCH (08:22)
[2019-05-30] MEDS: Ferrous Sulfate 325 MG TAB PO SCH ×2 (08:23→17:23)
[2019-05-30] MEDS: Docusate 100 MG CAP PO SCH (08:23)
[2019-05-30] MEDS: Carvedilol 6.25 MG TAB PO SCH ×2 (08:23→17:24)
[2019-05-30] MEDS: Cyanocobalamin (Vitamin B-12) 1,000 MCG TAB PO SCH (08:23)
[2019-05-30] MEDS: Polyethylene Glycol 3350 17 GM Packet PO SCH (08:23)
[2019-05-30] MEDS: Folic Acid 1 MG TAB PO SCH (08:23)
[2019-05-30 10:51] LABS: Vancomycin, Random 24.2 ug/mL (See Comment)
--- NOTE | 2019-05-30 12:26 | PDOC.PN ---
- Subjective Encounter Start Date: 05/30/19 Encounter Start Time: 07:00 Subjective: no new complaints, feels better - Objective Resuscitation Status - Order Detail: 05/23/19 15:03 Resuscitation Status Routine Resuscitation Status: FULL: Full Resuscitation MAR Reviewed: Yes Vital Signs & Weight: Vital Signs (12 hours) Temp Pulse Resp BP BP Pulse Ox 05/30/19 11:55 98.5 F 73 18 157/80 H 95 05/30/19 07:53 97.9 F 75 16 155/81 H 92 L 05/30/19 04:30 98.5 F 80 16 157/78 H 93 L 05/30/19 01:01 98.2 F 81 18 151/82 H 94 L Weight Admit Weight 225 lb 8 oz Weight 225 lb 8 oz I&O: 05/29/19 05/30/19 05/31/19 06:59 06:59 06:59 Intake Total 2960 1830 Output Total 3300 1225 Balance -340 605 Result Diagrams: 05/28/19 07:52 05/28/19 07:52 Additional Labs: Accuchecks 05/30/19 05/29/19 05/29/19 05:46 21:53 16:00 POC Glucose 225 H 132 H 169 H Phys Exam - Physical Examination HEENT: PERRLA, moist MMs Neck: no JVD, supple Respiratory: no wheezing, no rales Cardiovascular: RRR, no significant murmur Gastrointestinal: soft, no distention, positive bowel sounds Musculoskeletal: no edema, pulses present Neurological: non-focal, moves all 4 limbs Psychiatric: normal affect, A&O x 3 Dx/Plan (1) Discitis of lumbar region Code(s): M46.46 - DISCITIS, UNSPECIFIED, LUMBAR REGION Status: Acute (2) MRSA bacteremia Code(s): R78.81 - BACTEREMIA Status: Acute (3) Chronic anemia Code(s): D64.9 - ANEMIA, UNSPECIFIED Status: Chronic (4) Diabetes mellitus type 2 in nonobese Code(s): E11.9 - TYPE 2 DIABETES MELLITUS WITHOUT COMPLICATIONS Status: Chronic (5) Hypertension Code(s): I10 - ESSENTIAL (PRIMARY) HYPERTENSION Status: Chronic Qualifiers: Hypertension type: essential hypertension Qualified Code(s): I10 - Essential (primary) hypertension - Plan awaiting daptomycin set up for outpt infusion -: may dc anytime if above is set up -: continue metformin, glipizide, coreg, norvasc and lisinopril -: to ambulate as tolerated in hallway * . Review of Systems - Medications/Allergies Allergies/Adverse Reactions: Allergies Allergy/AdvReac Type Severity Reaction Status Date / Time No Known Drug Allergies Allergy Verified 03/26/19 21:36 Medications: Current Medications Acetaminophen (Tylenol) 650 mg PO Q4H PRN PRN Reason: Headache/Fever/Mild Pain (1-3) Hydrocodone Bitart/Acetaminophen ([place] 10/325) 1 tab PO Q4H PRN PRN Reason: Moderate Pain (4-6) Last Admin: 05/30/19 09:40 Dose: 1 tab Hydrocodone Bitart/Acetaminophen ([place] 5/325) 1 tab PO Q4H PRN PRN Reason: Moderate Pain (4-6) Last Admin: 05/25/19 14:17 Dose: 1 tab Amlodipine Besylate (Norvasc) 10 mg PO DAILY [facility] Last Admin: 05/30/19 08:22 Dose: 10 mg Bisacodyl (Dulcolax) 10 mg [place] Q8H PRN PRN Reason: Constipation Carvedilol (Coreg) 6.25 mg PO BID-[facility] Last Admin: 05/30/19 08:23 Dose: 6.25 mg Clonidine (Catapres) 0.1 mg PO Q4H PRN PRN Reason: SBP Greater Than 170 Last Admin: 05/26/19 17:19 Dose: 0.1 mg Cyanocobalamin (Vitamin B-12) 1,000 mcg PO DAILY [facility] Last Admin: 05/30/19 08:23 Dose: 1,000 mcg Dextrose/Water (Dextrose 50%) 25 gm SLOW IVP PRN PRN PRN Reason: Hypoglycemia Docusate Sodium (Colace) 100 mg PO BID [facility] Last Admin: 05/30/19 08:23 Dose: 100 mg Enoxaparin Sodium (Lovenox) 40 mg SC 0900 [facility] Last Admin: 05/30/19 08:22 Dose: 40 mg Famotidine (Pepcid) 20 mg PO BID [facility] Last Admin: 05/30/19 08:22 Dose: 20 mg Ferrous Sulfate (Feosol) 325 mg PO BID-[facility] Last Admin: 05/30/19 08:23 Dose: 325 mg Folic Acid (Folvite) 1 mg PO DAILY [facility] Last Admin: 05/30/19 08:23 Dose: 1 mg Gabapentin (Neurontin) 300 mg PO BID [facility] Last Admin: 05/30/19 08:22 Dose: 300 mg Glipizide (Glucotrol) 5 mg PO DAILY [facility] Last Admin: 05/30/19 08:22 Dose: 5 mg Glucagon (Glucagon) 1 mg IM PRN PRN PRN Reason: Hypoglycemia Hydralazine HCl (Apresoline) 10 mg SLOW IVP Q4H PRN PRN Reason: SBP > 180 and HR < 70 Dextrose/Water (D5w) 1,000 mls @ 0 mls/hr IV .Q0M PRN PRN Reason: Hypoglycemia Vancomycin HCl 1.75 gm/ Sodium (Chloride) 500 mls @ 250 mls/hr IVPB 0200,1400 [facility] Last Admin: 05/30/19 01:17 Dose: 500 mls Insulin Human Lispro (Humalog) 0 units SC .MODERATE SLIDING SC PRN PRN Reason: Moderate Correctional Scale Last Admin: 05/30/19 06:08 Dose: 4 unit Insulin Human Lispro (Humalog) 0 units SC .BEDTIME SLIDING SC PRN PRN Reason: Bedtime Correctional Scale Last Admin: 05/27/19 20:46 Dose: 2 unit Lisinopril (Zestril) 10 mg PO DAILY [facility] Last Admin: 05/30/19 08:22 Dose: 10 mg Magnesium Hydroxide (Milk Of Magnesium) 30 ml PO DAILYPRN PRN PRN Reason: Constipation Last Admin: 05/27/19 08:01 Dose: 30 ml Metformin HCl (Glucophage) 1,000 mg PO BID-[facility] Last Admin: 05/30/19 08:22 Dose: 1,000 mg Miscellaneous Medication (Pharmacy To Dose) 0 each IVPB .VANCOMYCIN PRN PRN Reason: LABS Ondansetron HCl (Zofran Odt) 4 mg PO Q6H PRN PRN Reason: Nausea/Vomiting Polyethylene Glycol (Miralax) 17 gm PO DAILY [facility] Last Admin: 05/30/19 08:23 Dose: Not Given Sodium Chloride (Flush - Normal Saline) 10 ml IVF Q12HR [facility] Last Admin: 05/30/19 08:24 Dose: 10 ml Sodium Chloride (Flush - Normal Saline) 10 ml IVF PRN PRN PRN Reason: Saline Flush
[2019-05-30] MEDS ORDERED: Vancomycin HCl 1.75 GM in Sodium Chloride 0.9% 500 ML IVPB SCH (14:00)
[2019-05-30 15:51] VITALS: BP 138/82; TEMP 98.4
--- NOTE | 2019-05-30 19:38 | DIS ---
DATE OF ADMISSION: 05/23/2019 DATE OF DISCHARGE: 05/30/2019 DISCHARGE DISPOSITION: Home. PRIMARY DISCHARGE DIAGNOSES: 1. Methicillin-resistant Staphylococcus aureus bacteremia. 2. Infectious diskitis of lumbar vertebrae. 3. Diabetes mellitus type 2. 4. Chronic anemia. 5. Obesity. PROCEDURES DONE DURING HOSPITALIZATION: 1. CT of brain without contrast done showed no evidence of acute intracranial abnormality. 2. MRI of thoracic spine with and without contrast done showed no fracture or malalignment. There was no diskitis nor osteomyelitis seen. 3. MRI of lumbar spine done shows L3-L4 diskitis with osteomyelitis with posterior epidural abscess, narrowing of the thecal sac to approximately 5 mm. There are phlegmonous changes and myositis within the anterior and posterior paraspinal soft tissues at the L3-L4 level with right anterior paravertebral phlegmon/abscess seen. 4. MRI of cervical spine with and without contrast done, was severely limited due to motion artifact. Had a PICC line placed on 05/27/2019. 1/2 blood cultures grew MRSA, sensitive to ciprofloxacin, clindamycin, doxycycline, gentamicin, Levaquin , Zyvox, ofloxacin, rifampin, tetracycline, Bactrim, and vancomycin. 5. H and H of 8 and 25, platelet count 394, MCV 81 with white count of 6.7, sedimentation rate is 79. BUN and creatinine were 15 and 0.9 on the 3rd. CRP 7.26 on the 3rd of this month. Albumin 2.8. Random vancomycin level was 24.2 on the . INPATIENT CONSULTANTS: 1. Dr. Danielle for Infectious Disease. 2. Dr. Manriquez for Neurosurgery. DISCHARGE MEDICATIONS: 1. Gabapentin 300 mg p.o. twice daily. 2. Norvasc 10 mg daily. 3. Coreg 6.25 mg twice daily. 4. Vitamin B12 of 1000 mcg p.o. daily. 5. Daptomycin 800 mg IV daily for another 44 days. 6. Ferrous sulfate 325 mg twice daily. 7. Folic acid 1 mg daily. 8. Glipizide 5 mg twice daily. 9. Lisinopril 10 mg daily. 10. Metformin 1000 mg twice daily. 11. Ultram 50 mg 4 times daily p.r.n. ALLERGIES: NO KNOWN DRUG ALLERGIES. DISCHARGE PLAN: The patient to follow up with primary care physician in 1 week. He will also need weekly CBC, CMP, CRP, and sedimentation rates done, the results of which needs to be faxed to Dr. Danielle' office. BRIEF COURSE DURING HOSPITALIZATION: The patient initially came to ER with complaints of severe back pain. He has known history of MRSA bacteremia, which was diagnosed in March of this year. He had inability to complete the full course of daptomycin due to transportation issues to the [facility]. He had a complete set of MRIs done for the spine, which revealed L3-L4 diskitis with osteomyelitis and paraspinal abscess. He was treated medically. The patient was on vancomycin all through his stay here. He has been switched over to daptomycin once daily. He was counseled multiple times regarding compliance with medications due to recurrent MRSA. He initially had this in the toe, which has spread now to the lumbar spine. He was also counseled with regard to medication compliance and dietary compliance. The patient has arranged transportation to come to [facility] daily. Case Management consultation was requested for outpatient antibiotics. This has been set up, and the patient will be given daptomycin 800 mg daily starting 02:00 p.m. tomorrow. Please see a [id number] documentation for the day of discharge on [facility]. Job ID: [id number] MTDD
== END 2019-05-30 19:10 | disposition home or self-care (01) | DRG 638 ==
LOC: ERS 05:06 → SJJU 13:35
PROVIDERS: ADMIT Internal Medicine; ATTEND Internal Medicine
PROC: 02HV33Z Insertion of Infusion Device into Superior Vena Cava, Percutaneous Approach (ICD-10-PCS; principal; 2019-05-23)
DX: E11.69 Type 2 diabetes mellitus with other specified complication (principal); M46.36 Infection of intervertebral disc (pyogenic), lumbar region; M46.26 Osteomyelitis of vertebra, lumbar region; B95.61 Methicillin susceptible Staphylococcus aureus infection as the cause of diseases classified elsewhere; D64.9 Anemia, unspecified; E66.9 Obesity, unspecified; K59.00 Constipation, unspecified; I10 Essential (primary) hypertension; E11.40 Type 2 diabetes mellitus with diabetic neuropathy, unspecified; Z86.718 Personal history of other venous thrombosis and embolism; Z89.422 Acquired absence of other left toe(s)
CPT/HCPCS: 36415; 36416; 36569; 70450; 72100; 72156; 72157; 72158; 80048; 80053; 80202; 82550; 83605; 85025; 85652; 86140; 87040; 87077; 87149; 87186; 96365; 96375; C1751; J1644; J1650; J1815; J1885; J2060; J2543; J3370; J7050

== ENCOUNTER 2019-06-01 05:52 | Inpatient (IN) | payer SELFPAY ==
[2019-06-01 07:58] LABS: #Basophils 0.1 thou/uL (0.0-0.2); #Eosinphils 0.2 thou/uL (0.0-0.7); #Lymphocytes 1.4 thou/uL (1.20-3.40); #Monocytes 0.4 thou/uL (0.11-0.59); #Neutrophils 4.2 thou/uL (1.40-6.50); %Eosinophils 2.6 % (0.0-10.0); %Lymphocytes 22.8 % (21.0-51.0); %Monocytes 6.7 % (0.0-10.0); %Neutrophils 66.9 % (42.0-75.0); Mean Corpuscular HGB CONC 32.2 g/dL (32.0-36.0); Mean Corpuscular Hemoglobin 25.8 pg (27.0-31.0); Mean Corpuscular Volume 80.1 fL (78.0-98.0); Mean Platelet Volume 6.1 fL (7.4-10.4); Platelet Count 488 thou/uL (130-400); RBC Distribution Width 17.7 % (11.5-14.5); Red Blood Cell (RBC) Count 3.49 mill/uL (4.70-6.10); White Blood Cell (WBC) Count 6.3 thou/uL (4.8-10.8)
[2019-06-01 08:17] LABS: ALT (SGPT) 16 U/L (8-55); AST (SGOT) 14 U/L (5-34); Albumin 3.2 g/dL (3.5-5.0); Alkaline Phosphatase 169 U/L (40-150); Anion Gap 13 mmol/L (10-20); BUN (Urea Nitrogen) 21 mg/dL (8.9-20.6); Bilirubin, Total 0.5 mg/dL (0.2-1.2); Calc. Creatinine Clearance 0 mL/min (70-130); Calcium 9.6 mg/dL (7.8-10.44); Carbon Dioxide 25 mmol/L (22-29); Chloride 101 mmol/L (98-107); Estimated GFR-MDRD 80; Globulin 5.1 g/dL (2.4-3.5); Glucose 145 mg/dL (70-105); Potassium 4.4 mmol/L (3.5-5.1); Protein, Total 8.3 g/dL (6.0-8.3); Sodium 135 mmol/L (136-145)
[2019-06-01 10:26] LABS: Bacteria/HPF 1+ HPF (None Seen); Bilirubin Negative (Negative); Blood, Urine Trace (Negative); Clarity Clear (Clear); Glucose, Urine (Dipstick) Normal (Negative); Leukocyte Negative Leu/uL (Negative); Nitrite Negative (Negative); Protein, Urine (Dipstick) 300 mg/dL (Neg-Trace); RBC/HPF 0-3 HPF (0-3); Urobilinogen Normal mg/dL (Less than 2); WBC/HPF 0-3 HPF (0-3)
[2019-06-01] MEDS ORDERED: Ondansetron ODT 4 MG TAB SL PRN (11:01)
[2019-06-01] MEDS ORDERED: Ondansetron PF 4 MG/2 ML Vial IVP PRN (11:01)
[2019-06-01 11:10] VITALS: BMI 26.6
--- NOTE | 2019-06-01 11:42 | CON ---
DATE OF CONSULTATION: Mr. Patton is a 44-year-old man, who was actually admitted for a week and discharged 2 days ago for osteomyelitis and diskitis at L3-L4, and returned this morning with increasing back pain and constipation. The constipation has actually been present from almost 2 months and he has been struggling with that ever since. He has no symptoms of bowel incontinence or urinary incontinence, nor does he have urinary retention. He actually just urinated here before I came into the room in the handheld urinal, so for one it appears that he is having no struggle there. He also reports that he has had no trouble over the past few months. He does report right-sided lower back pain as well as right-sided groin and hip pain and has an extraordinary level of pain when he attempts to flex at the right hip. He can straight leg raise unassisted on the left side with minimal pain, but has a significant amount of pain when he tries to do the same on the right and this is all from the iliopsoas irritation given the area of soft tissue abscess he has on his MRI from May 23. He has full sensation intact in all distributions of the trunk and lower extremities. He has great strength in the bilateral ankles, dorsiflexing and plantar flexing. He can heel slide with both legs, this is more comfortable on the right given the amount of pain he has when he attempts to activate his hip flexors. He already has a PICC line and is receiving daptomycin under the direction of Dr. Danielle from Neurosurgery's perspective. This still represents a nonsurgical issue, but would recommend repeat MRI with and without contrast to re-evaluate the size and involvement of his abscess. Otherwise, though would strongly suggest he just continue conservative management and Infectious Disease management through the PICC line. Job ID: [id number]
[2019-06-01] MEDS ORDERED: Gadobenate Dimeglumine 529 MG/1 ML (20ML VIAL) ONE (12:43)
--- NOTE | 2019-06-01 12:51 | MRI ---
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 Follow-up after IV antibiotic therapy.. COMPARISON: Noncontrast MRI of 05/23/2019 TECHNIQUE: Multiple sequences obtained in axial and sagittal planes, pre and post IV injection of gadolinium-bas ed contrast agent. FINDINGS: Vertebral body heights are maintained. The severe soft tissue edema involving bilateral psoas muscles centered at the L3-4 level, demonstrates diffuse enhancement, but no abscess. It has worsened since the prior MRI. The perivertebral space edema involves not only the prevertebral space, but also the posterior perivertebral space bilaterally. Again demonstrated is the diffuse, severe edema involving the entire L3 and L4 vertebral bodies and bilateral pedicles, with involvement of transvers e processes. Irregularity of the endplates with hyperintense T2 signal throughout the intervertebral disc space demonstrates strong irregular enhancement. Nonenhancing components of the d isc centrally. Abutting the posterior surface of this, located in the anterior epidural space of the L3-4 level, there is a approximately 0.5 x 0.5 x 1.5 cm rim-enhancing mass with nonenhancing cent er. This is consistent with an epidural abscess. The enhancing surrounding granulation tissue extends to the pedicle level of L3 superiorly. It causes severe stenosis of the thecal sac, resulting in severe crowding of the cauda equina and total effacement of CSF signal, as previously demonstrated. Conus medullaris terminates at L1-2. T12-L1:Normal. L1-2:Normal disc. No central or neural foraminal bony stenosis. Enhancing granulation tissue in the l ateral neural foramina. L2-3:Normal disc. No central or bony neural foraminal stenosis. Prominent enhancing granulation tissu e in bilateral neural foramina. L3-4:Osteomyelitis-discitis findings as described above. L4-5:Normal disc. No bony central or bony neural foraminal stenosis. Enhancing granulation tissue cir cumferentially surrounding the thecal sac causing moderate thecal sac stenosis. Enhancing granulation tissue throughout bilateral neural foramina. L5-S1:Moderate to severe disc space narrowing. Extensive diffuse annular tears. Prominent diffuse dis c bulge encroaches upon anterior aspect of spinal canal, but does not cause significant thecal sac stenosis. Mild enhancing granulation tissue in right neural foramen. No high-grade facet DJD. 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 2) small anterior epidural abscess at L3-4 causing severe thecal sac stenosis. 3) interval worsening of myositis involving bilateral psoas muscles, but no evidence of cerebral as a bscess. 4) infectious spondylitis involvement with granulation tissue extending superiorly and inferiorly, an d involving neural foramina, at multiple levels. 5) cellulitis involving posterior perivertebral space. 6) severe degenerative disc disease at L5-S1.
[2019-06-01] MEDS ORDERED: Acetaminophen 650 MG Suppository PR PRN (14:32)
[2019-06-01] MEDS ORDERED: Acetaminophen 325 MG TAB PO PRN (14:32)
[2019-06-01] MEDS ORDERED: Bisacodyl 10 MG SUPP PR PRN (14:32)
[2019-06-01] MEDS ORDERED: HumaLOG 300 UNITS/3 ML VIAL SC PRN (14:38)
[2019-06-01] MEDS ORDERED: Dextrose 5% in Water 1,000 ML IV PRN (14:38)
[2019-06-01] MEDS ORDERED: Dextrose 50% Abboject 50 ML SYRINGE SLOW IVP PRN (14:38)
[2019-06-01] MEDS ORDERED: DAPTOmycin 500 MG VIAL IVPB SCH (14:45)
[2019-06-01] MEDS ORDERED: Polyethylene Glycol 3350 17 GM Packet PO SCH (14:45)
[2019-06-01] MEDS: Sodium Chloride 0.9% 1,000 ML IV SCH ×3 (15:02→21:14)
[2019-06-01 15:44] LABS: Lactic Acid 0.9 mmol/L (0.5-2.2)
--- NOTE | 2019-06-01 17:05 | HP ---
CHIEF COMPLAINT: Increasing right-sided back pain. HISTORY OF PRESENT ILLNESS: Mr. Patton is a 44-year-old man, who was recently discharged from the hospital on May 30, 2019 after being treated for infectious diskitis of the lumbar vertebrae and methicillin-resistant Staphylococcus aureus bacteremia. The patient had an MRI done of the lumbar spine that had demonstrated involvement of L3-L4 with a posterior epidural abscess causing narrowing of the thecal sac to approximately 5 mm. The patient had myositis within the anterior and posterior paraspinal soft tissues at L3/L4 with right anterior paravertebral phlegmon/abscess. A PICC line was placed on May 27 and he continued IV antibiotics during his stay after being seen by Dr. Danielle. The patient was discharged on daptomycin 800 mg IV for a total of 44 days. The patient states since going home, he has had worsening in his pain on the right side extending down his right leg and into the right groin. He has had difficulty moving his bowels due to constipation and does not normally suffer from constipation. He states he has not been on any narcotics and has not taken anything for pain due to not being able to slate picker his prescriptions. The patient denies any fevers, chills, or sweats. Denies any nausea or vomiting. No chest pain, palpitations, or shortness of breath. In the emergency department, he was evaluated by Mason Weinstein, the neurosurgery PA, who felt continued conservative management with IV antibiotics as per Dr. Danielle would be the best option, and no surgical intervention is warranted at this time. An MRI with and without contrast was recommended to better evaluate the size and involvement of the abscess. The patient has undergone a repeat MRI of the lumbar spine showing infectious spondylitis consisting of osteomyelitis - diskitis at L3-L4 with the small anterior epidural abscess at L3-L4 causing severe thecal stenosis and measuring 0.5 x 0.5 x 1.5 cm. Infectious spondylitis involvement with granulation tissue seen extending superiorly and inferiorly involving the neural foramina at multiple levels and cellulitis involving the posterior perivertebral space with severe degenerative disk disease at L5-S1. The patient states he did not receive any medications in the emergency department, but was given 10 mg of morphine by EMS while en route to the hospital. At this present time, he has some discomfort, but states he feels well as long as he is not moving. The patient denies having any urinary or stool incontinence. He feels he has been emptying his bladder fully. He denies having any saddle paresthesias or anesthesia. Denies any lower extremity weakness or numbness and states that his mobility is solely limited by the pain it causes in his back. PAST MEDICAL HISTORY: 1. Hypertension. 2. Diabetes mellitus. 3. Diabetic neuropathy. PAST SURGICAL HISTORY: Left first toe amputation. SOCIAL HISTORY: The patient denies any tobacco use, alcohol use, or illicit drug use. ALLERGIES: NO KNOWN DRUG ALLERGIES. CURRENT MEDICATIONS: 1. Metformin. 2. Gabapentin. 3. Ibuprofen. 4. Lisinopril. 5. Amlodipine. PHYSICAL EXAMINATION: GENERAL: The patient appears well developed and at the moment, found resting comfortably in bed. VITAL SIGNS: Temperature 97.7, pulse 92, respirations 20, O2 saturation 98% on room air, and blood pressure 160/87. HEENT: Normocephalic and atraumatic. Pupils are equal, round, and reactive to light. Sclerae without icterus. Oropharynx is clear. NECK: Supple. LUNGS: Clear to auscultation bilaterally. CARDIAC: Regular rhythm. ABDOMEN: Soft, nontender, and nondistended. Normoactive bowel sounds present. EXTREMITIES: The patient unable to straight leg raise on the right side due to causing severe pain in his back. No lower limb edema or swelling. Power 5/5 in upper limbs. Power 5/5 with plantar flexion and extension bilaterally. NEUROLOGIC: Alert and oriented x3. No sensory deficits involving either leg. Skin pale, warm and dry. No rash or jaundice. LABORATORY DATA: Full blood count notable for hemoglobin of 9.0, which is improved from his last admission when it was 7.9. He is known to have chronic anemia and is on iron supplements. Platelet count 488. Electrolytes notable for sodium of 135, also improved. BUN 21, creatinine 1.1, GFR 80. Glucose 145. LFTs unremarkable. Alkaline phosphatase 169. Albumin 3.2. Urinalysis notable for 300 of protein, trace ketones, trace blood, and 4 to 6 hyaline casts. IMPRESSION AND PLAN: Mr. Patton is a 44-year-old male, who is being admitted for management of the followin. Osteomyelitis of lumbar vertebrae/epidural abscess. The patient was discharged 2 days ago with plans to continue IV daptomycin. There is possible worsening seen on MRI with regard to myositis. The patient remains afebrile. White count normal. We will add on lactic acid and CK. We will start Zosyn and vancomycin until the patient is seen by Dr. Danielle for further recommendation. No surgical intervention at this present time as per Neurosurgery. 2. Pain. For pain, we will start Toradol as the patient states morphine only helps him fall asleep rather than relieve his pain. 3. Hypertension. We will resume home medications and monitor blood pressure. 4. Diabetes mellitus, type 2. We will initiate insulin sliding scale. 5. Gastrointestinal prophylaxis and deep venous thrombosis prophylaxis. 6. Code status, full. His surrogate decision maker is his aunt, Lillian Carvajal however, per the patient, she is currently hospitalized. The patient's case was discussed with Dr. Bal, who agrees with plan of care as described above. Job ID: [id number]
--- NOTE | 2019-06-01 17:58 | PRG ---
DATE OF SERVICE: SUBJECTIVE: The patient was recently discharged and is right back in the hospital because he was unable to have a bowel movement due to constipation plus pain related to his spinal infection. He is back in the hospital. He could not get his pain medications. OBJECTIVE: GENERAL: He is currently awake, alert, and oriented. VITAL SIGNS: Showed normal temperature, BP 160/87. LUNGS: Clear. HEART: S1 and S2, regular rate. EXTREMITIES: Tenderness in the lumbosacral spine area. Tenderness on range of motion of the right thigh over the hip, probably due to involvement of the psoas muscle. RECTAL: Showed soft stool in the rectal vault. MUSCULOSKELETAL: The patient has good strength in lower extremities. Cognitive function appears to be intact. LABORATORY DATA: White cell count 6.3, hemoglobin 9.0, and platelets 488. Creatinine 1.01, albumin 3.2, alkaline phosphatase 169. Last blood cultures from May 23, which was still positive for MRSA. The NANDO for vancomycin is 1. ASSESSMENT AND DISCUSSION: Type 2 diabetes, left toe osteomyelitis amputation, then recrudescence of inflammatory process with bacteremia due to Methicillin-resistant Staphylococcus aureus, inability to complete his treatment in the outpatient setting due to transportation difficulty and now recrudescence of infection with lumbosacral spine involvement. The patient readmitted because of constipation. He seems to be able to void without difficulty. At this point, we will recommend laxatives and we will check his postvoid residual by bladder ultrasound. Continue vancomycin and then once he is stable, then pursue the previous discharge planning again. We will increase the dose of daptomycin to 8 mg/kg from 6 mg/kg once he gets out in the outpatient setting. Job ID: [id number]
[2019-06-01] MEDS ORDERED: Piperacillin/Tazobactam 3.375 GM in Sodium Chloride 0.9% 100 ML IVPB SCH (18:00)
[2019-06-01] MEDS: Carvedilol 6.25 MG TAB PO SCH (18:23)
[2019-06-01] MEDS: Vancomycin HCl 1.5 GM in Sodium Chloride 0.9% 250 ML 300 ML IVPB SCH (18:23)
[2019-06-01] MEDS: Ferrous Sulfate 325 MG TAB PO SCH (18:24)
[2019-06-01] MEDS: Fleet Enema 133 ML BOT PR SCH (18:24)
[2019-06-01] MEDS: Ketorolac Tromethamine 30 MG/ML VIAL IVP SCH (18:24)
[2019-06-01] MEDS ORDERED: Vancomycin HCl 1.25 GM in Sodium Chloride 0.9% 250 ML 250 ML IVPB SCH (21:00)
[2019-06-01] MEDS: Gabapentin 300 MG CAP PO SCH (21:12)
[2019-06-01] MEDS: Senokot S 8.6-50 MG TAB PO SCH (21:13)
[2019-06-01] MEDS: Famotidine/PF 20 mg/2ml Vial SLOW IVP SCH (21:13)
[2019-06-02] MEDS: Ketorolac Tromethamine 30 MG/ML VIAL IVP SCH ×2 (01:39→05:31)
[2019-06-02] MEDS: Vancomycin HCl 1.5 GM in Sodium Chloride 0.9% 250 ML 300 ML IVPB SCH ×2 (05:32→16:34)
[2019-06-02 06:16] LABS: #Basophils 0.1 thou/uL (0.0-0.2); #Eosinphils 0.2 thou/uL (0.0-0.7); #Lymphocytes 1.5 thou/uL (1.20-3.40); #Monocytes 0.5 thou/uL (0.11-0.59); %Lymphocytes 23.9 % (21.0-51.0); %Monocytes 7.4 % (0.0-10.0); %Neutrophils 64.7 % (42.0-75.0); Hemoglobin 7.9 g/dL (14.0-18.0); Mean Corpuscular HGB CONC 31.6 g/dL (32.0-36.0); Mean Corpuscular Hemoglobin 25.8 pg (27.0-31.0); Mean Corpuscular Volume 81.5 fL (78.0-98.0); Mean Platelet Volume 6.3 fL (7.4-10.4); Platelet Count 480 thou/uL (130-400); RBC Distribution Width 18.1 % (11.5-14.5); Red Blood Cell (RBC) Count 3.07 mill/uL (4.70-6.10); White Blood Cell (WBC) Count 6.2 thou/uL (4.8-10.8)
[2019-06-02 06:46] LABS: Anion Gap 14 mmol/L (10-20); BUN (Urea Nitrogen) 27 mg/dL (8.9-20.6); Calc. Creatinine Clearance 96 mL/min (70-130); Carbon Dioxide 24 mmol/L (22-29); Chloride 104 mmol/L (98-107); Estimated GFR-MDRD 55; Potassium 4.4 mmol/L (3.5-5.1); Sodium 138 mmol/L (136-145)
[2019-06-02 06:47] LABS: Glucose 203 mg/dL (70-105)
[2019-06-02] MEDS: Sodium Chloride 0.9% 1,000 ML IV SCH ×3 (07:03→18:11)
[2019-06-02] MEDS: Famotidine/PF 20 mg/2ml Vial SLOW IVP SCH ×2 (07:41→20:37)
[2019-06-02] MEDS: Enoxaparin Sodium 40 MG/0.4 ML SYRINGE SC SCH (07:41)
[2019-06-02] MEDS: Amlodipine 10 MG TAB PO SCH (07:42)
[2019-06-02] MEDS: Lisinopril 10 MG TAB PO SCH (07:42)
[2019-06-02] MEDS: Senokot S 8.6-50 MG TAB PO SCH ×2 (07:42→20:37)
[2019-06-02] MEDS: Folic Acid 1 MG TAB PO SCH (07:42)
[2019-06-02] MEDS: Carvedilol 6.25 MG TAB PO SCH ×2 (07:42→16:33)
[2019-06-02] MEDS: Cyanocobalamin (Vitamin B-12) 1,000 MCG TAB PO SCH (07:43)
[2019-06-02] MEDS: Ferrous Sulfate 325 MG TAB PO SCH ×2 (07:43→16:33)
[2019-06-02] MEDS: Gabapentin 300 MG CAP PO SCH ×2 (07:43→20:37)
[2019-06-02] MEDS ORDERED: Fleet Enema 133 ML BOT PR SCH (12:15)
[2019-06-02] MEDS: traMADol HCl 50 MG TAB PO PRN ×3 (12:42→20:37)
--- NOTE | 2019-06-02 16:16 | ULT ---
Exam: Bilateral renal ultrasound complete: HISTORY: Right flank pain to right groin, elevated creatinine COMPARISON: None FINDINGS: Right kidney: 11.8 x 5.9 x 6.4 cm. Left kidney: 12.1 x 6.4 x 6.5 cm No renal hydronephrosis. No evidence for abnormal perinephric process. No solid or cystic renal mass. Nearly empty bladder with a somewhat thick-walled appearance probably related to lack of filling. IMPRESSION: Unremarkable bilateral renal ultrasound. No hydronephrosis or perinephric process.
[2019-06-02] MEDS: Fleet Enema 133 ML BOT PR SCH (17:07)
--- NOTE | 2019-06-02 17:25 | PRG ---
DATE OF SERVICE: 06/02/2019 SUBJECTIVE: Mr. Patton is still having severe pain, cannot sit up to have a bowel movement, and this elicits tremendous amount of pain in the back area, and he denies any shortness of breath. He is voiding without difficulty. His bladder scan showed good emptying and his temperature has been normal. OBJECTIVE: GENERAL: Awake, alert, and oriented. LUNGS: Clear. HEART: S1-S2. Regular rate. ABDOMEN: Soft and not tender. LABORATORY DATA: White cell count 6.2, hemoglobin 7.9, and platelets 480 with sodium 138 and creatinine 1.39. ASSESSMENT AND DISCUSSION: Type 2 diabetes, osteomyelitis of toe with amputation, and then recrudescence inflammatory process with bacteremia due to methicillin-resistant Staphylococcus aureus, inability to complete treatment in the outpatient setting due to transportation issues, and now recrudescence of infection with lumbosacral spine involvement, and constipation, because is unable to sit to have bowel movements. We will try an enema, but I am afraid. We are going to have to get Neurosurgery to re-evaluate and see if he may have to have some intervention because of the inadequate pain control at this point in time. Job ID: [id number]
[2019-06-03] MEDS: traMADol HCl 50 MG TAB PO PRN ×4 (00:37→19:50)
[2019-06-03 04:53] LABS: Vancomycin, Trough 18.9 ug/mL
[2019-06-03] MEDS: Vancomycin HCl 1.5 GM in Sodium Chloride 0.9% 250 ML 300 ML IVPB SCH ×2 (05:01→17:38)
[2019-06-03] MEDS: Sodium Chloride 0.9% 1,000 ML IV SCH ×2 (05:03→15:11)
[2019-06-03] MEDS: Enoxaparin Sodium 40 MG/0.4 ML SYRINGE SC SCH (08:18)
[2019-06-03] MEDS: Gabapentin 300 MG CAP PO SCH ×2 (08:19→19:50)
[2019-06-03] MEDS: Folic Acid 1 MG TAB PO SCH (08:19)
[2019-06-03] MEDS: Cyanocobalamin (Vitamin B-12) 1,000 MCG TAB PO SCH (08:19)
[2019-06-03] MEDS: Senokot S 8.6-50 MG TAB PO SCH ×2 (08:19→19:50)
[2019-06-03] MEDS: Carvedilol 6.25 MG TAB PO SCH ×2 (08:19→17:38)
[2019-06-03] MEDS: Lisinopril 10 MG TAB PO SCH (08:19)
[2019-06-03] MEDS: Amlodipine 10 MG TAB PO SCH (08:19)
[2019-06-03] MEDS: Ferrous Sulfate 325 MG TAB PO SCH ×2 (08:23→17:38)
[2019-06-03] MEDS: Famotidine/PF 20 mg/2ml Vial SLOW IVP SCH ×2 (08:27→19:51)
--- NOTE | 2019-06-03 08:48 | PDOC.PN ---
- Subjective Encounter Start Date: 06/02/19 Encounter Start Time: 08:46 Subjective: Patient with difficulty moving his bowels states he has attempted to sit on -: bedside commode and on the toilet when able to walk better, but no movement -: despite stool softeners. Requesting suppository or enema. Denies any n/v. States the discomfort is in his pelvis, due to feeling pressure. Worse on the right side and he does have significant pain in the back which radiates down his right leg. He has difficulty moving due to the discomfort. Denies any numbness or weakness in lower extremities. - Objective Resuscitation Status - Order Detail: 06/01/19 14:32 Resuscitation Status Routine Co-Sign Provider: Resuscitation Status: FULL: Full Resuscitation Vital Signs & Weight: Vital Signs (12 hours) Temp Pulse Resp BP BP Pulse Ox 06/03/19 08:19 78 162/88 H 06/03/19 07:45 98.0 F 78 16 121/76 97 Weight Weight 225 lb I&O: 06/02/19 06/03/19 06/04/19 06:59 06:59 06:59 Intake Total 480 Balance 480 Result Diagrams: 06/02/19 05:55 06/02/19 05:55 Additional Labs: Accuchecks 06/03/19 06/02/19 06/02/19 05:11 20:39 16:46 POC Glucose 151 H 155 H 214 H 06/02/19 12:07 POC Glucose 163 H Phys Exam - Physical Examination Patient laying flat, no severe distress HEENT: PERRLA, moist MMs Neck: supple, full ROM Respiratory: clear to auscultation bilateral unable to sit up due to pain Cardiovascular: RRR Gastrointestinal: soft, non-tender, no distention, positive bowel sounds Musculoskeletal: no edema Neurological: normal sensation, moves all 4 limbs mobility is limited due to back pain Psychiatric: normal affect, A&O x 3 Skin: no rash Dx/Plan (1) Epidural abscess Code(s): G06.2 - EXTRADURAL AND SUBDURAL ABSCESS, UNSPECIFIED Status: Acute Plan: Continue IV antibiotics, Patient to continue IV Daptomycin on discharge at higher dose as per Dr. Danielle. [facility] aware of transportation issues. (2) Constipation Code(s): K59.00 - CONSTIPATION, UNSPECIFIED Status: Acute Plan: Try Dulcolax suppository. If no relief, Fleet enema. (3) Diabetes mellitus type 2 in nonobese Code(s): E11.9 - TYPE 2 DIABETES MELLITUS WITHOUT COMPLICATIONS Status: Chronic Plan: Continue medications, ISS and monitor glucose. (4) Hypertension Code(s): I10 - ESSENTIAL (PRIMARY) HYPERTENSION Status: Chronic Qualifiers: Hypertension type: essential hypertension Qualified Code(s): I10 - Essential (primary) hypertension Plan: Monitor BP. - Plan cont current plan of care, PT/OT * .
[2019-06-03 09:16] LABS: #Eosinphils 0.3 thou/uL (0.0-0.7); #Lymphocytes 1.8 thou/uL (1.20-3.40); #Monocytes 0.6 thou/uL (0.11-0.59); #Neutrophils 5.7 thou/uL (1.40-6.50); %Basophils 0.6 % (0.0-1.0); %Eosinophils 3.2 % (0.0-10.0); %Monocytes 7.3 % (0.0-10.0); %Neutrophils 67.8 % (42.0-75.0); Hemoglobin 8.3 g/dL (14.0-18.0); Mean Corpuscular Hemoglobin 25.4 pg (27.0-31.0); Mean Corpuscular Volume 81.9 fL (78.0-98.0); Mean Platelet Volume 6.5 fL (7.4-10.4); Platelet Count 422 thou/uL (130-400); RBC Distribution Width 17.9 % (11.5-14.5); Red Blood Cell (RBC) Count 3.27 mill/uL (4.70-6.10); White Blood Cell (WBC) Count 8.3 thou/uL (4.8-10.8)
[2019-06-03 09:30] LABS: Anion Gap 13 mmol/L (10-20); BUN (Urea Nitrogen) 16 mg/dL (8.9-20.6); Calc. Creatinine Clearance 161 mL/min (70-130); Calcium 8.7 mg/dL (7.8-10.44); Carbon Dioxide 23 mmol/L (22-29); Chloride 103 mmol/L (98-107); Estimated GFR-MDRD Greater than 90; Glucose 113 mg/dL (70-105); Potassium 3.9 mmol/L (3.5-5.1); Sodium 135 mmol/L (136-145)
--- NOTE | 2019-06-03 15:32 | PDOC.EVN ---
Event Note - Event Note Event Note: Patient seen and examined early this afternoon. He reports feeling significantly better since having several bowel movements. Feels it released pressure he was experiencing as well as pain. Has been moving to toilet and bedside commode. Per patient he is now being cautious to move to much though now he is sitting up better compared to before when he could only lay flat. He has been tolerating food intake. Labs reviewed. Vitals stable. Exam unchanged from yesterday. Patient for discharge home. Walking Program consulted to get him up and moving. He would resume outpatient IV Abx treatments. Per [facility] he would need to establish transportation due to lack of insurance. We filled out order to see if he qualities for program to receive free PT/SN at home. Discharge order placed.
[2019-06-04] MEDS: traMADol HCl 50 MG TAB PO PRN ×5 (00:44→20:25)
[2019-06-04] MEDS: Sodium Chloride 0.9% 1,000 ML IV SCH ×3 (02:04→15:46)
[2019-06-04] MEDS: Vancomycin HCl 1.5 GM in Sodium Chloride 0.9% 250 ML 300 ML IVPB SCH ×2 (04:15→16:59)
[2019-06-04] MEDS: Famotidine/PF 20 mg/2ml Vial SLOW IVP SCH (07:56)
[2019-06-04] MEDS: Enoxaparin Sodium 40 MG/0.4 ML SYRINGE SC SCH (07:56)
[2019-06-04] MEDS: Amlodipine 10 MG TAB PO SCH (07:57)
[2019-06-04] MEDS: Folic Acid 1 MG TAB PO SCH (07:57)
[2019-06-04] MEDS: Gabapentin 300 MG CAP PO SCH ×2 (07:57→20:25)
[2019-06-04] MEDS: Lisinopril 10 MG TAB PO SCH (07:57)
[2019-06-04] MEDS: Carvedilol 6.25 MG TAB PO SCH ×2 (07:57→16:59)
[2019-06-04] MEDS: Ferrous Sulfate 325 MG TAB PO SCH ×2 (07:57→16:59)
[2019-06-04] MEDS: Cyanocobalamin (Vitamin B-12) 1,000 MCG TAB PO SCH (07:58)
[2019-06-04] MEDS: Senokot S 8.6-50 MG TAB PO SCH ×2 (07:59→20:38)
[2019-06-04] MEDS: Polyethylene Glycol 3350 17 GM Packet PO SCH (10:14)
--- NOTE | 2019-06-04 15:33 | PRG ---
DATE OF SERVICE: 06/04/2019 SUBJECTIVE: The patient is a 44-year-old male who was recently discharged from the hospital after a diagnosis of MRSA diskitis. A PICC line was placed on May 27. He was advised to follow up as outpatient for daptomycin 800 mg for a total of 44 days. However, the patient presented to the emergency room for increasing back pain. He also had transportation issues. At this time, he continues to have the same back pain. No radiculopathy reported. He denies any fever, chills, bladder or bowel incontinence, or any new focal deficits. OBJECTIVE: VITAL SIGNS: Temperature 98, pulse 80, respiration 20, blood pressure 163/84, O2 saturation 96% on room air. GENERAL: A 44-year-old male in mild distress due to back pain. LUNGS: Clear to auscultation bilaterally. HEART: S1, S2 present. Regular rate and rhythm. ABDOMEN: Soft. Bowel sounds present. Mild tenderness in the paraspinal area. EXTREMITIES: No edema or calf tenderness. NEUROLOGY: Examination is grossly nonfocal. Power was 5/5 in all extremities. LABORATORY FINDINGS: Lab findings from yesterday; WBC 8.3, hemoglobin 8.3, no left shift. Sodium 135, potassium 3.9, and creatinine 0.83 from 1.39. Urinalysis was negative for wbc. Vancomycin trough was 18.9. Renal ultrasound was negative for obstructive uropathy. MRI of the lumbar spine done admission showed interval worsening of myositis involving bilateral psoas muscle as well as cellulitis involving the posterior perivertebral space and severe degenerative disk disease of L5-S1 and diskitis at L3-4, with small anterior epidural abscess at L3-4 causing severe thecal sac stenosis. IMPRESSION: 1. Intractable back pain secondary to epidural abscess/osteomyelitis of the lumbar vertebrae. 2. Constipation. 3. Hypertension. 4. Diabetes mellitus type 2. 5. Acute kidney injury, improving. 6. Hyponatremia. 7. Macrocytic anemia. PLAN: We will continue IV vancomycin with vancomycin level monitoring. We will continue IV fluids due to acute kidney injury. Would lower the rate to 75. Constipation has improved. We will continue Senokot-S twice a day. We will change Pepcid to p.o. We will continue carvedilol. Lovenox for DVT prophylaxis. Continue insulin sliding scale. We will discuss the plan with Neurosurgery. The plan was discussed with the patient in detail. He stated understanding. Job ID: [id number]
--- NOTE | 2019-06-04 15:48 | PRG ---
DATE OF SERVICE: 06/04/2019 I am seeing Mr. Patton at bedside today following up from our visit in the emergency department for epidural abscess and spondylodiskitis. From pain perspective, he looks to be immensely improved from our interaction couple of days ago. From a functional standpoint, he is able to lift his right leg off the bed now, where he was before he could not secondary to pain. He has no numbness, weakness otherwise outside of what he already has from a pain leveling perspective. He states that he has had several bowel movements, which has also helped a lot of back discomfort. This is being appropriately treated through IV antibiotics with Dr. Danielle. After our discussion and examination, I feel that this is certainly the best course of action is continued antibiotic therapy and extended followup with no intended neurosurgical intervention at the moment. Of course, this could change if he has a precipitous neurologic decline in the coming days, which right now I do not anticipate given his extensive improvement over 72 hours. I did encourage him to ambulate and get out of bed, as this will help speed up his recovery. He expressed understanding and will attempt to do so this afternoon. Job ID: [id number]
[2019-06-04 16:23] LABS: Vancomycin, Trough 16.6 ug/mL
--- NOTE | 2019-06-04 18:08 | PRG ---
DATE OF SERVICE: 06/04/2019 SUBJECTIVE: Mr. Patton is feeling better. He is able to stand up and walk. He was able to use the toilet. No respiratory symptoms. No abdominal pain. OBJECTIVE: VITAL SIGNS: His temperature has been normal. GENERAL: Awake, alert, and oriented. LUNGS: Clear. HEART: S1 and S2. Regular rate. ABDOMEN: Soft, not distended or tender. EXTREMITIES: Moves extremities well. LABORATORY DATA: White cell count 8.3, hemoglobin 8.3, and platelets 422. Sodium 135 and creatinine 0.83. ASSESSMENT AND DISCUSSION: Type 2 diabetes, osteomyelitis of toe and amputation, then recrudescence inflammatory process with bacteremia due to methicillin-resistant Staphylococcus aureus. Inability to complete treatment due to transportation issues and recrudescence with infection of lumbosacral spine. Constipation, which has improved now. Now with pain control is improved. He was able to have a bowel movement. He is ambulatory and I think we can continue with conservative management. I believe Dr. Taveras has evaluated the patient and feels that this is a safe approach for the time being. Job ID: [id number]
[2019-06-04] MEDS: Famotidine 20 MG TAB PO SCH (20:24)
[2019-06-05] MEDS: traMADol HCl 50 MG TAB PO PRN (04:08)
[2019-06-05] MEDS: Vancomycin HCl 1.5 GM in Sodium Chloride 0.9% 250 ML 300 ML IVPB SCH ×2 (04:09→16:31)
[2019-06-05] MEDS: Sodium Chloride 0.9% 1,000 ML IV SCH ×2 (04:09→16:32)
[2019-06-05] MEDS: HumaLOG 300 UNITS/3 ML VIAL SC PRN (04:15)
[2019-06-05] MEDS ORDERED: Morphine 4 MG/ML VIAL SLOW IVP SCH (05:30)
[2019-06-05] MEDS: Folic Acid 1 MG TAB PO SCH (09:18)
[2019-06-05] MEDS: Famotidine 20 MG TAB PO SCH ×2 (09:18→21:01)
[2019-06-05] MEDS: Carvedilol 6.25 MG TAB PO SCH ×2 (09:18→16:32)
[2019-06-05] MEDS: Enoxaparin Sodium 40 MG/0.4 ML SYRINGE SC SCH (09:18)
[2019-06-05] MEDS: Ferrous Sulfate 325 MG TAB PO SCH ×2 (09:18→16:32)
[2019-06-05] MEDS: Polyethylene Glycol 3350 17 GM Packet PO SCH (09:19)
[2019-06-05] MEDS: Lisinopril 10 MG TAB PO SCH (09:19)
[2019-06-05] MEDS: Cyanocobalamin (Vitamin B-12) 1,000 MCG TAB PO SCH (09:19)
[2019-06-05] MEDS: Senokot S 8.6-50 MG TAB PO SCH ×2 (09:19→21:00)
[2019-06-05] MEDS: Gabapentin 300 MG CAP PO SCH ×2 (09:19→21:00)
[2019-06-05] MEDS: Amlodipine 10 MG TAB PO SCH (09:19)
[2019-06-05] MEDS: Morphine 4 MG/ML VIAL SLOW IVP PRN ×3 (09:24→21:01)
[2019-06-05] MEDS ORDERED: Sodium Chloride 0.9% 1,000 ML IV SCH (16:48)
--- NOTE | 2019-06-05 16:49 | PDOC.PN ---
- Subjective Encounter Start Date: 06/05/19 Encounter Start Time: 11:00 Patient seen and examined for Epidural abscess. No new focal deficits. No new complaints. No overnight events - Objective Resuscitation Status - Order Detail: 06/01/19 14:32 Resuscitation Status Routine Co-Sign Provider: Resuscitation Status: FULL: Full Resuscitation MAR Reviewed: Yes Vital Signs & Weight: Vital Signs (12 hours) Temp Pulse Resp BP BP Pulse Ox 06/05/19 16:32 167/82 H 06/05/19 09:19 74 167/82 H 06/05/19 09:18 167/82 H 06/05/19 08:00 98.1 F 74 20 167/82 H 95 Weight Weight 225 lb I&O: 06/04/19 06/05/19 06/06/19 06:59 06:59 06:59 Intake Total 3040 2120 240 Output Total 1300 Balance 3040 820 240 Result Diagrams: 06/03/19 08:58 06/03/19 08:58 Additional Labs: Accuchecks 06/05/19 06/05/19 06/04/19 11:40 04:16 20:48 POC Glucose 214 H 226 H 231 H 06/04/19 17:00 POC Glucose 227 H Phys Exam - Physical Examination Constitutional: NAD Respiratory: no wheezing, no rhonchi Cardiovascular: RRR, no rub Gastrointestinal: soft, non-tender, positive bowel sounds Musculoskeletal: no edema Neurological: moves all 4 limbs Dx/Plan - Plan PT/OT, DVT proph w/lovenox, DVT proph w/SCDs IMPRESSION: 1. Intractable back pain secondary to epidural abscess/osteomyelitis of the lumbar vertebrae. 2. Diabetes mellitus type 2. 3. Hypertension. 4. Acute kidney injury, improving. 5. Macrocytic anemia. 6. Hyponatremia. 7. Constipation. PLAN: Continue IV vancomycin Monitor Vancomycin level Reduce IVF to 50 ml/hr Resume Glipizide and Metformin Continue carvedilol/Amlodipine CM working on SNF AM labs Review of Systems - Review of Systems Respiratory: negative: Cough, Dry, Shortness of Breath, Hemoptysis, SOB with Excertion, Pleuritic Pain, Sputum, Wheezing Cardiovascular: negative: chest pain, palpitations, orthopnea, paroxysmal nocturnal dyspnea, edema, light headedness, other Gastrointestinal: negative: Nausea, Vomiting, Abdominal Pain, Diarrhea, Constipation, Melena, Hematochezia, Other - Medications/Allergies Allergies/Adverse Reactions: Allergies Allergy/AdvReac Type Severity Reaction Status Date / Time No Known Drug Allergies Allergy Verified 06/01/19 11:58 Medications: Current Medications Acetaminophen (Tylenol) 650 mg PO Q4H PRN PRN Reason: Headache/Fever/Mild Pain (1-3) Acetaminophen (Tylenol) 650 mg DC Q4H PRN PRN Reason: Headache/Fever/Mild Pain (1-3) Amlodipine Besylate (Norvasc) 10 mg PO DAILY [facility] Last Admin: 06/05/19 09:19 Dose: 10 mg Bisacodyl (Dulcolax) 10 mg DC DAILYPRN PRN PRN Reason: Constipation Last Admin: 06/02/19 11:53 Dose: 10 mg Carvedilol (Coreg) 6.25 mg PO BID-[facility] Last Admin: 06/05/19 16:32 Dose: 6.25 mg Cyanocobalamin (Vitamin B-12) 1,000 mcg PO DAILY [facility] Last Admin: 06/05/19 09:19 Dose: 1,000 mcg Dextrose/Water (Dextrose 50%) 25 gm SLOW IVP PRN PRN PRN Reason: Hypoglycemia Enoxaparin Sodium (Lovenox) 40 mg SC 0900 [facility] Last Admin: 06/05/19 09:18 Dose: 40 mg Famotidine (Pepcid) 20 mg PO BID [facility] Last Admin: 06/05/19 09:18 Dose: 20 mg Ferrous Sulfate (Feosol) 325 mg PO BID-[facility] Last Admin: 06/05/19 16:32 Dose: 325 mg Folic Acid (Folvite) 1 mg PO DAILY [facility] Last Admin: 06/05/19 09:18 Dose: 1 mg Gabapentin (Neurontin) 300 mg PO BID [facility] Last Admin: 06/05/19 09:19 Dose: 300 mg Glucagon (Glucagon) 1 mg IM PRN PRN PRN Reason: Hypoglycemia Dextrose/Water (D5w) 1,000 mls @ 0 mls/hr IV .Q0M PRN PRN Reason: Hypoglycemia Vancomycin HCl 1.5 gm/ Sodium (Chloride) 300 mls @ 200 mls/hr IVPB 0500,1700 [facility] Last Admin: 06/05/19 16:31 Dose: 300 mls Sodium Chloride (Normal Saline 0.9%) 1,000 mls @ 75 mls/hr IV .[id number] [facility] Last Admin: 06/05/19 16:32 Dose: 1,000 mls Insulin Human Lispro (Humalog) 0 units SC .MILD SLIDING SCALE PRN PRN Reason: Mild Correctional Scale Last Admin: 06/05/19 04:15 Dose: 3 unit Insulin Human Lispro (Humalog) 0 units SC .BEDTIME SLIDING SC PRN PRN Reason: Bedtime Correctional Scale Lisinopril (Zestril) 10 mg PO DAILY [facility] Last Admin: 06/05/19 09:19 Dose: 10 mg Miscellaneous Medication (Pharmacy To Dose) 0 each IVPB PRN PRN PRN Reason: PHARMTODOSE Morphine Sulfate (Morphine) 4 mg SLOW IVP Q4H PRN PRN Reason: Pain Last Admin: 06/05/19 13:50 Dose: 4 mg Polyethylene Glycol (Miralax) 17 gm PO DAILY [facility] Last Admin: 06/05/19 09:19 Dose: 17 gm Senna/Docusate Sodium (Senokot S) 2 tab PO BID [facility] Last Admin: 06/05/19 09:19 Dose: 2 tab Sodium Chloride (Flush - Normal Saline) 10 ml IVF Q12HR [facility] Last Admin: 06/05/19 09:20 Dose: Not Given Sodium Chloride (Flush - Normal Saline) 10 ml IVF PRN PRN PRN Reason: Saline Flush Tramadol HCl (Ultram) 50 mg PO Q4H PRN PRN Reason: Moderate Pain (4-6) Last Admin: 06/05/19 04:08 Dose: 50 mg
[2019-06-05] MEDS: metFORMIN 500 MG TAB PO SCH (18:24)
[2019-06-05] MEDS ORDERED: Tamsulosin HCl 0.4 MG CAP PO SCH (21:00)
[2019-06-06] MEDS: Morphine 4 MG/ML VIAL SLOW IVP PRN ×2 (03:53→08:26)
[2019-06-06] MEDS: Vancomycin HCl 1.5 GM in Sodium Chloride 0.9% 250 ML 300 ML IVPB SCH (03:55)
[2019-06-06 06:09] LABS: #Basophils 0.1 thou/uL (0.0-0.2); #Eosinphils 0.3 thou/uL (0.0-0.7); #Lymphocytes 1.5 thou/uL (1.20-3.40); #Monocytes 0.3 thou/uL (0.11-0.59); #Neutrophils 3.9 thou/uL (1.40-6.50); %Eosinophils 5.3 % (0.0-10.0); %Lymphocytes 24.2 % (21.0-51.0); %Neutrophils 64.5 % (42.0-75.0); Hemoglobin 8.5 g/dL (14.0-18.0); Mean Corpuscular HGB CONC 30.7 g/dL (32.0-36.0); Mean Corpuscular Hemoglobin 25.4 pg (27.0-31.0); Mean Corpuscular Volume 82.9 fL (78.0-98.0); Mean Platelet Volume 6.4 fL (7.4-10.4); Platelet Count 369 thou/uL (130-400); RBC Distribution Width 17.9 % (11.5-14.5); Red Blood Cell (RBC) Count 3.33 mill/uL (4.70-6.10); White Blood Cell (WBC) Count 6.1 thou/uL (4.8-10.8)
[2019-06-06 06:32] LABS: Anion Gap 11 mmol/L (10-20); BUN (Urea Nitrogen) 11 mg/dL (8.9-20.6); Calc. Creatinine Clearance 164 mL/min (70-130); Calcium 9.1 mg/dL (7.8-10.44); Carbon Dioxide 27 mmol/L (22-29); Chloride 102 mmol/L (98-107); Estimated GFR-MDRD Greater than 90; Glucose 238 mg/dL (70-105); Potassium 3.8 mmol/L (3.5-5.1); Sodium 136 mmol/L (136-145)
[2019-06-06] MEDS ORDERED: glipiZIDE 5 MG TAB PO SCH (07:30)
[2019-06-06] MEDS: Ferrous Sulfate 325 MG TAB PO SCH (08:28)
[2019-06-06] MEDS: Senokot S 8.6-50 MG TAB PO SCH (08:28)
[2019-06-06] MEDS: metFORMIN 500 MG TAB PO SCH (08:28)
[2019-06-06] MEDS: Folic Acid 1 MG TAB PO SCH (08:29)
[2019-06-06] MEDS: Amlodipine 10 MG TAB PO SCH (08:29)
[2019-06-06] MEDS: Carvedilol 6.25 MG TAB PO SCH (08:29)
[2019-06-06] MEDS: Famotidine 20 MG TAB PO SCH (08:29)
[2019-06-06] MEDS: Lisinopril 10 MG TAB PO SCH (08:29)
[2019-06-06] MEDS: Cyanocobalamin (Vitamin B-12) 1,000 MCG TAB PO SCH (08:30)
[2019-06-06] MEDS: Polyethylene Glycol 3350 17 GM Packet PO SCH (08:30)
[2019-06-06] MEDS: Gabapentin 300 MG CAP PO SCH (08:30)
[2019-06-06] MEDS: Enoxaparin Sodium 40 MG/0.4 ML SYRINGE SC SCH (08:30)
[2019-06-06] MEDS ORDERED: Cyclobenzaprine 10 MG TAB PO PRN (10:28)
[2019-06-06] MEDS ORDERED: Acetaminophen/Codeine 30-300mg Tablet PO PRN (10:28)
[2019-06-06 11:47] VITALS: BP 178/84; TEMP 98.1
[2019-06-06] MEDS: HumaLOG 300 UNITS/3 ML VIAL SC PRN (12:36)
[2019-06-06] MEDS ORDERED: Gabapentin 300 MG CAP PO SCH (13:00)
--- NOTE | 2019-06-06 20:26 | DIS ---
DATE OF ADMISSION: 06/01/2019 DATE OF DISCHARGE: 06/06/2019 DISCHARGE DISPOSITION: [facility] in [place]. The patient was seen and examined on the day of discharge. Denies any new complaints. No chest pain, shortness of breath, or palpitations. Back pain is controlled at this time. DISCHARGE MEDICATIONS: 1. Gabapentin 300 mg four times a day. 2. Tylenol as needed. 3. Tylenol No. 3 as needed. 4. Tramadol as needed. 5. Vancomycin 1.5 g twice a day until August 03. 6. All other home medications were left unchanged. CBC, BMP, and CRP every week. Vancomycin trough twice a week. FOLLOWUP: 1. Follow up with Dr. Danielle and Dr. Flakito Taveras in 2 to 3 weeks. 2. Follow up with Dr. Mariela Jeffers as outpatient. 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 Please note that the patient was unable to follow up for outpatient antibiotics due to transportation issues. He was started on IV vancomycin during this hospital stay. He was evaluated by Neurosurgery as well as Infectious Disease. Repeat MRI showed osteomyelitis/diskitis at L3-L4 with small anterior epidural abscess at L3-L4 causing severe thecal sac stenosis. There was also interval worsening of myositis involving the bilateral psoas muscle. Dr. Danielle recommended IV vancomycin until August 03. He is currently being discharged to [facility]. FINAL DIAGNOSES: 1. 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 2. Diabetes mellitus, type 2. 3. Hypertension. 4. Acute kidney injury. His maximum creatinine in this admission was 1.39, at discharge is 0.81. 5. Chronic anemia, macrocytic. 6. Mild hyponatremia. 7. Constipation, resolved. 8. Medication noncompliance. Total time coordinating the discharge of this patient was 35 minutes. Job ID: [id number]
== END 2019-06-06 14:24 | DRG 95 ==
LOC: ERS 05:52 → T4-A 09:07
PROVIDERS: ADMIT Internal Medicine; ATTEND Internal Medicine
DX: G06.2 Extradural and subdural abscess, unspecified (principal); M46.26 Osteomyelitis of vertebra, lumbar region; N17.9 Acute kidney failure, unspecified; E87.1 Hypo-osmolality and hyponatremia; I10 Essential (primary) hypertension; E11.40 Type 2 diabetes mellitus with diabetic neuropathy, unspecified; M46.46 Discitis, unspecified, lumbar region; K59.00 Constipation, unspecified; D53.9 Nutritional anemia, unspecified; Z89.412 Acquired absence of left great toe; Z91.14 Patient's other noncompliance with medication regimen
CPT/HCPCS: 36415; 36416; 72158; 76770; 80048; 80053; 80202; 81003; 81015; 82550; 83605; 85025; 96360; A9577; J1650; J1885; J2270; J3370; J7050; S0028